=== PATIENT | male | born 1940 | race Caucasian/White ===

== ENCOUNTER → 2018-06-26 16:24 | Outpatient (CLI) | payer MEDICARE, SELFPAY ==
[2018-02-13 10:34] VITALS: BMI 28.8
--- NOTE | 2018-06-26 16:29 | RAD_ITS ---
STUDY: X-RAY - LEFT KNEE REASON FOR EXAM: Male, 77 years old. Pain. TECHNIQUE: 4 view(s) of the knee. COMPARISON: None. FINDINGS: Normal visualized distal femur. Normal visualized proximal tibia and fibula. Normal proximal tibiofibular articulation. There is no acute fracture, dislocation or destructive osseous pathology. There is mild degenerative arthrosis of the medial femorotibial compartment. There is mild degenerative arthrosis of the lateral femorotibial compartment. There is mild degenerative arthrosis of the patellofemoral articulation. There is no demonstrated joint effusion. There are multiple surgical clips in the soft tissue over the medial calf thought to be secondary to vascular surgery. 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 Electronically Signed: Moi Frank DO at 22:30 EST Tel [phone], Service support ,
== END ==
PROVIDERS: Family Provider Family Medicine; PCP Family Medicine; Referring Provider Family Medicine; Visit Provider Family Medicine
DX: M25.562 Pain in left knee (principal)
CPT/HCPCS: 73564

== ENCOUNTER → 2018-09-20 | Outpatient (CLI) | payer MEDICARE, SELFPAY ==
[2018-02-13 10:34] VITALS: BMI 28.8
[2018-09-20 14:33] LABS: ALB/GLOB Ratio 1.1 RATIO (0.9-2.4); AST(SGOT) 51 U/L (15-37); Alanine Aminotransfer ALT/SGPT 39 U/L (16-61); Albumin, Serum 3.4 g/dL (3.2-5.0); Alkaline Phosphatase 81 U/L (45-117); Anion Gap 10 (5-15); BUN 16 mg/dL (7-18); BUN/Creat Ratio 15.5 RATIO (10-20); Calcium,Total 8.5 mg/dL (8.5-10.1); Chloride 102 mmol/L (98-107); Creatinine, Serum 1.03 mg/dL (0.70-1.30); EST Glomerular Filtration Rate 74 mL/min (>60); Est Glom Filt Rate - Afr Amer 90 mL/min (>60); Globulin 3.1 g/dL (2.2-4.2); Glucose 111 mg/dL (74-106); Potassium 4.2 mmol/L (3.5-5.1); Protein, Total 6.5 g/dL (6.4-8.2); Sodium Level 135 mmol/L (136-145)
[2018-09-20 14:42] LABS: Absolute Lymphocyte Count 0.53 X10^3/ul (0.83-4.51); Absolute Neutrophil Count 3.4 X10^3/uL (2.0-7.7); Basophil# 0.01 X10^3/uL; Basophil% 0.2 % (0-1); Eosinophil# 0.01 X10^3/uL; Eosinophils% 0.2 % (0-5); Hematocrit 42.8 % (40-54); Hemoglobin 14.9 g/dl (13.0-16.5); Lymphocyte # 0.53 X10^3/ul (4.0); Lymphocyte % 11.1 % (19-41); Mean Corp Hgb Conc 34.8 g/gl (32-36); Mean Corpuscular Hgb 31.4 pg (27.0-32.0); Mean Corpuscular Volume 90.1 fL (80-94); Mean Platelet Vol. 10.3 fl (6.2-12.0); Monocyte# 0.83 X10^3/uL; Monocyte% 17.4 % (0-10); Neutrophil # 3.39 X10^3/uL (2.7-7.7); Neutrophil % 70.9 % (47-70); Platelet Count 125 K/mm3 (150-450); RBC Distribution Width CV 13.7 % (11.6-14.6); RBC Distribution Width SD 44.6 fl (35.1-43.9); Red Blood Count 4.75 M/mm3 (4.6-6.2); White Blood Count 4.8 K/mm3 (4.4-11.0)
[2018-09-20 14:44] LABS: Differential Indicated SCAN CRITERIA MET; POSITIVE COUNT NO; POSITIVE DIFFERENTIAL YES; POSITIVE MORPHOLOGY NO
[2018-09-20 14:48] LABS: Platelet Estimate SLT DEC (ADEQ)
[2018-09-20 14:49] LABS: Red Cell Morphology NORM C+C NORMAL (NORM C&C)
== END | disposition home or self-care (01) ==
PROVIDERS: Family Provider Family Medicine; PCP Family Medicine; Referring Provider Family Medicine; Visit Provider Family Medicine
DX: M62.81 Muscle weakness (generalized) (principal); R68.83 Chills (without fever)
CPT/HCPCS: 36415; 80053; 85025

== ENCOUNTER → 2018-09-22 | Outpatient (CLI) | payer MEDICARE, SELFPAY ==
[2018-02-13 10:34] VITALS: BMI 28.8
--- NOTE | 2018-09-22 12:36 | RAD_ITS ---
STUDY: X-RAY CHEST REASON FOR EXAM: Male, 78 years old. Muscle weakness, fever, congestion TECHNIQUE: Frontal and lateral views COMPARISON: September 18, 2013 FINDINGS: Stable sternotomy wires. The lungs are clear and expanded. There is no demonstrated pleural abnormality. Normal size heart. Normal mediastinum and lisa. Normal visualized pulmonary arteries. Normal visualized aortic arch and descending thoracic aorta. Degenerative changes of the thoracic spine. Normal visualized ribs, clavicles, and shoulders. There is no demonstrated abnormality of the visualized soft tissue structures of the upper abdomen. RAD/Chest PA and Lateral IMPRESSION: No acute pulmonary pathology of the chest. Electronically Signed: Wilfrido Payne DO at 22:43 EDT Tel [phone], Service support ,
[2018-09-22 13:54] LABS: Color, Urine DARK YELLOW (Yellow); Glucose, Dipstick Normal (Normal); Ketone-Dipstick 50 mg/dl (Negative); Leukocyte Esterase-Dipstick 25 /ul (Negative); Nitrite-Dipstick Positive (Negative); Occult Blood-Urine 10 /ul (Negative); Protein-Dipstick 15 mg/dl (Negative); Specific Gravity, Urine 1.015 (1.002-1.030); Urine Bilirubin Dipstick 1 mg/dL (Negative); Urine Clarity Clear (Clear); Urine Urobilinogen 8 mg/dl (Normal); Urine pH 6.5 (5.0 - 8.0)
[2018-09-22 13:58] LABS: Absolute Lymphocyte Count 0.78 X10^3/ul (0.83-4.51); Absolute Neutrophil Count 4.3 X10^3/uL (2.0-7.7); Basophil# 0.02 X10^3/uL; Basophil% 0.3 % (0-1); Eosinophil# 0.04 X10^3/uL; Eosinophils% 0.6 % (0-5); Hematocrit 38.4 % (40-54); Hemoglobin 13.6 g/dl (13.0-16.5); Lymphocyte # 0.78 X10^3/ul (4.0); Lymphocyte % 12.5 % (19-41); Mean Corp Hgb Conc 35.4 g/gl (32-36); Mean Corpuscular Hgb 31.9 pg (27.0-32.0); Mean Corpuscular Volume 90.1 fL (80-94); Mean Platelet Vol. 10.2 fl (6.2-12.0); Monocyte# 1.09 X10^3/uL; Monocyte% 17.5 % (0-10); Neutrophil % 68.9 % (47-70); Platelet Count 124 K/mm3 (150-450); RBC Distribution Width CV 13.7 % (11.6-14.6); RBC Distribution Width SD 44.9 fl (35.1-43.9); Red Blood Count 4.26 M/mm3 (4.6-6.2); White Blood Count 6.2 K/mm3 (4.4-11.0)
[2018-09-22 14:05] LABS: POSITIVE COUNT NO; POSITIVE DIFFERENTIAL NO; POSITIVE MORPHOLOGY NO
== END | disposition home or self-care (01) ==
LOC: MTLAB 12:32
PROVIDERS: Family Provider Family Medicine; PCP Family Medicine; Referring Provider Family Medicine; Visit Provider Family Medicine
DX: M62.81 Muscle weakness (generalized) (principal)
CPT/HCPCS: 36415; 71046; 81002; 85025

== ENCOUNTER → 2018-10-12 | Outpatient (CLI) | payer MEDICARE, SELFPAY ==
[2018-02-13 10:34] VITALS: BMI 28.8
--- NOTE | 2018-10-12 14:53 | RAD_ITS ---
STUDY: X-RAY - LUMBAR SPINE REASON FOR EXAM: Male, 78 years old. Back pain. TECHNIQUE: 5 view(s) of the lumbar spine were obtained. COMPARISON: None FINDINGS: There is generalized osteopenia. Normal lumbar lordosis. There is no substantial scoliosis. There is a normal alignment of the vertebrae. Normal vertebral bodies and endplates. There is diffuse intervertebral disc space narrowing with osteophyte formation most marked at L4-5 and L5-S1. There is diffuse facet sclerosis. There are cholecystectomy clips, phleboliths and vascular calcifications. RAD/L/S Spine Min 4 Views IMPRESSION: Osteopenia with moderate lumbar spondylosis, most marked in the lower lumbar spine. Electronically Signed: Michele Moy MD at 10:49 EDT , Service support ,
[2018-10-12 17:57] LABS: Absolute Lymphocyte Count 1.51 X10^3/ul (0.83-4.51); Absolute Neutrophil Count 2.4 X10^3/uL (2.0-7.7); Basophil# 0.02 X10^3/uL; Basophil% 0.4 % (0-1); Eosinophil# 0.08 X10^3/uL; Eosinophils% 1.7 % (0-5); Hematocrit 41.2 % (40-54); Lymphocyte # 1.51 X10^3/ul (4.0); Mean Corpuscular Hgb 31.5 pg (27.0-32.0); Mean Corpuscular Volume 92.8 fL (80-94); Mean Platelet Vol. 10.5 fl (6.2-12.0); Monocyte# 0.67 X10^3/uL; Monocyte% 14.2 % (0-10); Neutrophil # 2.43 X10^3/uL (2.7-7.7); Neutrophil % 51.5 % (47-70); POSITIVE COUNT NO; POSITIVE DIFFERENTIAL NO; POSITIVE MORPHOLOGY NO; Platelet Count 155 K/mm3 (150-450); RBC Distribution Width CV 13.7 % (11.6-14.6); RBC Distribution Width SD 46.4 fl (35.1-43.9); Red Blood Count 4.44 M/mm3 (4.6-6.2); White Blood Count 4.7 K/mm3 (4.4-11.0)
[2018-10-12 18:05] LABS: Erythrocyte Sedimentation Rate 2 mm/hr (0-20)
[2018-10-12 18:24] LABS: Vitamin B12 365 pg/mL (211-911)
[2018-10-12 18:39] LABS: AST(SGOT) 14 U/L (15-37); Alanine Aminotransfer ALT/SGPT 21 U/L (16-61); Albumin, Serum 3.3 g/dL (3.2-5.0); Alkaline Phosphatase 71 U/L (45-117); Anion Gap 8 (5-15); BUN 12 mg/dL (7-18); BUN/Creat Ratio 13.6 RATIO (10-20); CPK Total, Creatine Kinase 39 U/L (39-308); CRP < 2.90 mg/L (0.0-3.0); Calcium,Total 8.3 mg/dL (8.5-10.1); Chloride 110 mmol/L (98-107); Creatinine, Serum 0.88 mg/dL (0.70-1.30); EST Glomerular Filtration Rate 89 mL/min (>60); Est Glom Filt Rate - Afr Amer 108 mL/min (>60); Globulin 3.2 g/dL (2.2-4.2); Glucose 92 mg/dL (74-106); Magnesium 2.1 mg/dL (1.6-2.6); Potassium 4.1 mmol/L (3.5-5.1); Protein, Total 6.5 g/dL (6.4-8.2); Rheumatoid Factor < 10.0 IU/mL (<15); Sodium Level 143 mmol/L (136-145); Thyroid Stim Hormone (TSH) 1.31 uIU/mL (0.358-3.74)
[2018-10-18 16:28] LABS: ANTINUCLEAR ANTIBODIES DIRECT Negative (Negative)
== END | disposition home or self-care (01) ==
LOC: MTLAB 14:51
PROVIDERS: Family Provider Family Medicine; PCP Family Medicine; Referring Provider Family Medicine; Visit Provider Family Medicine
DX: R25.9 Unspecified abnormal involuntary movements (principal); M62.81 Muscle weakness (generalized); M54.5 Low back pain
CPT/HCPCS: 36415; 72110; 80053; 82550; 82607; 83735; 84443; 85025; 85652; 86038; 86140; 86431

== ENCOUNTER 2018-10-15 10:18 | Emergency (ER) | payer MEDICARE, SELFPAY ==
[2018-10-15 10:20] VITALS: BP 131/64; PULSE 64; RESP 16; TEMP 36.3; O2SAT 99; BMI 27.6
--- NOTE | 2018-10-15 10:56 | EKG12_ITS ---
Test Reason : GENERAL ILLNESS Blood Pressure : / mmHG Vent. Rate : 065 BPM Atrial Rate : 065 BPM P-R Int : 174 ms QRS Dur : 096 ms QT Int : 434 ms P-R-T Axes : 042 003 048 degrees QTc Int : 451 ms Sinus rhythm with frequent Premature ventricular complexes and Premature atrial complexes Otherwise normal ECG Confirmed by KEVIN NAVARRO, ADONIS ([id number]), editorial specialist ZOILA LEACH ([id number]) on 10/18/2018 9:06:12 AM Referred By: Mike Wilhelm Confirmed By:ADONIS BROWN MD
--- NOTE | 2018-10-15 11:03 | ED.DCSUM_ITS ---
History of Present Illness Chief Complaint: General Illness Informant: Patient, Family Onset: Weeks - 3 Context: Gradual Onset Timing: Continuous Quality: weak Location: BLE Current Severity: Moderate Maximum Severity: Moderate Worsened by: unk Relieved by: treating a UTI 2 or so wks ago Associated Symptoms: pain low back Narrative: Patient gives a relatively confusing history, such as my knee joints are weak but from what I was able to gather, it sounds like he feels weak from the waist down without numbness. He does not feel weak in his arms. He denies any abdominal pain but told me and nursing that he is weak up to his abdomen and has been having some low back discomfort. Symptoms started 3 weeks ago, the weakness started first. He saw his PCP, and working him up, he had back x-rays that showed some arthritis, some blood work that showed unknown results, and urinalysis that showed infection. The patient at the time had dark yellow urine but no blood, frequency, dysuria, urgency. He states that the antibiotic and his weakness was better and the dark yellow urine resolved.. However, his weakness started getting worse less than a week ago. The dark urine has not recurred. Back pain persists and is no worse, he states it is a little worse on the right it is across his low back, not worse with moving. Having normal bowel movements. No saddle anesthesia or numbness elsewhere, no bowel or bladder dysfunction. He is not anticoagulated, but is on aspirin and Plavix. - Past Medical History (1) Atherosclerosis of coronary artery of [place] heart without angina pectoris Status: Chronic (2) Diabetes mellitus Status: Chronic (3) Hyperlipidemia Status: Chronic (4) Hypertension Status: Chronic (5) Postsurgical aortocoronary bypass status Status: Chronic Comment: CABG x4- TAVAREZ to LAD, reverse SVG to CX, SVG to 2 branches on right Past Medical History - Allergies and Home Meds Allergies/Adverse Reactions: Allergies erythromycin base Allergy (Mild, Verified 10/15/18 10:19) stomach problems Primary Care Physician: Mike Wilhelm MD [Primary Care Provider] - Surgical History: coronary bypass surgery Lives: Spouse/ Significant Other Smoking Status: Never smoker Review of Systems General: Reports: Weight loss - over past 1-2 yrs. Denies: Chills, Fever, Sweats Eyes: Denies: Visual changes - bilaterally, Diplopia ENT: Denies: Rhinorrhea, Sore throat Cardiovascular: Reports: - - 2+/4 distal DP and rad pulses. Denies: Chest pain, Palpitations Respiratory: Denies: Dyspnea, Cough, Dyspnea on exertion Gastrointestinal: Denies: Abdominal pain, Nausea, Vomiting, Diarrhea, Melena, Hematochezia Genitourinary: Denies: Dysuria, Hematuria, Frequency Musculoskeletal: Reports: Back pain. Denies: Swelling, Extremity Pain Skin: Denies: Rash, Wounds Neurological: Denies: Headache, Weakness, Numbness Physical Exam Vital Signs/Narrative: Vital Signs Temp Pulse Resp BP Pulse Ox 10/15/18 10:20 97.3 F L 64 16 131/64 H 99 Inital Vital Signs reviewed: Yes General: Well nourished, Well developed, No Acute Distress Head: Normocephalic, Atraumatic Eyes: Perrl, EOMI ENT: Moist mucous membranes, No rhinorrhea Neck: Supple, Nontender Cardiovascular: Regular rate, Regular rhythm, No murmurs Respiratory: No distress, CTA bilaterally, Chest nontender Abdomen: Soft, Nontender, Nondistended, Normal bowel sounds Back: Nontender, Normal Inspection, - - no rashes. Negative for: CVA tenderness, Spinal tenderness Extremities: Nontender, No edema. Negative for: Calf Tenderness Skin: Normal color, No rash, No Trauma Neurological: Alert, Oriented x3, Cranial nerves II-XII grossly intact, Normal Strength - 5/5 throughout all 4 extremity prox and distal muscle groups., Normal Sensation, Normal DTR, - - has trouble sitting up in bed due to possible trunkal weakness, not limited by pain. no clonus. down going toes bilat. Psychological: Normal affect, Normal Mood Diagnostic/Tx/Re-eval Impressions Chest X-Ray 10/15/18 11:40 IMPRESSION: Stable, nonacute x-ray examination of the chest. Electronically Signed: Alo Medrano MD at 12:02 EDT , Service support , 10/15/18 11:40 Chest PA and Lateral [RAD] Stat Laboratory Results 10/15/18 10/15/18 10/15/18 11:15 11:35 11:35 WBC 6.9 RBC 4.65 Hgb 14.9 Hct 42.6 MCV 91.6 MCH 32.0 MCHC 35.0 RDW 13.4 RDW Differential 44.4 H Plt Count 148 L MPV 9.9 Immature Gran % (Auto) 0.100 Neut % (Auto) 56.8 Lymph % (Auto) 28.8 [place] % (Auto) 12.7 H Eos % (Auto) 1.3 Baso % (Auto) 0.3 Absolute Neuts (auto) 3.9 Absolute Lymphs (auto) 1.97 Total Counted Not Reportable Sodium 137 Potassium 4.2 Chloride 105 Carbon Dioxide 25.0 Anion Gap 7 BUN 12 Creatinine 0.93 Estim Creat Clear Calc 76.11 Est GFR (MDRD) Af Amer 101 Est GFR (MDRD) Non-Af 83 BUN/Creatinine Ratio 12.9 Glucose 107 H Calcium 8.7 Total Bilirubin 2.10 H AST 15 ALT 17 Alkaline Phosphatase 69 Troponin I < 0.015 Total Protein 6.4 Albumin 3.5 Globulin 2.9 Albumin/Globulin Ratio 1.2 Urine Color Yellow Urine Clarity Clear Urine pH 6.0 Ur Specific Mayo 1.015 Urine Protein 30 H Urine Glucose (UA) Normal Urine Ketones 5 H Urine Occult Blood 10 H Urine Nitrite Negative Urine Bilirubin Negative Urine Urobilinogen Normal Ur Leukocyte Esterase 25 H Urine RBC 0 SEEN Urine WBC 0-5 SEEN Ur Squamous Epith Cells 0-5 SEEN Urine Bacteria 0 SEEN Urine Mucus 0 SEEN - Rhythm Strip Rhythm Strip: Sinus Rhythm Rate: 65 Ectopy: PVC(s) - EKG Initial EKG Interpretation: Sinus Rhythm, No Acute Injury Pattern, - - Frequent ventricular ectopy with compensatory pauses. Otherwise, normal. - Medical Decision Making Labs are all unremarkable and similar to his prior labs last week. Chest x-ray unremarkable, urinalysis shows no recurrent infection. On further discussion with the patient, he states this low back pain is chronic. agrees. As he is lying in bed he is uncomfortable and says that the more he lies the worse it gets typically, which is why he is uncomfortable right now. I got him up out of bed, he walked around the bed without any difficulty and said that feels better. He also thinks the IV fluids he was given here in the ER helped him feel better. At this time I do not feel like on exam he has any neurologic weakness. His reflexes are normal, this is not Gullian Henry? syndrome. He did note that while he was in the emergency department he had one bout of loose diarrhea. It is possible he is a viral illness which is making him feel malaised and noticing it more in his legs. I offered admission but, he declines. I do not think he requires admission at this time. I think it is reasonable that he follow-up with his PCP if he still has symptoms after the holiday weekend. They are comfortable with this overall plan. ED Disposition - Plan for ED Patient: Disposition: Home or Assisted Living Diagnosis: Generalized weakness Instructions: ED Weakness [facility] Referrals: Mike Wilhelm MD [Primary Care Provider] - 3-5 Days if not improving
[2018-10-15 11:08] VITALS: BP 131/90; BP 137/87; BP 142/67; PULSE 56; PULSE 59; PULSE 61
[2018-10-15 11:32] LABS: Bacteria 0 SEEN /hpf (None Seen); Mucous, Urine 0 SEEN /hpf (<or=2+); Red Blood Cells-Urine 0 SEEN /hpf (0-5)
[2018-10-15 11:40] LABS: Color, Urine Yellow (Yellow); Glucose, Dipstick Normal (Normal); Ketone-Dipstick 5 mg/dl (Negative); Leukocyte Esterase-Dipstick 25 /ul (Negative); Nitrite-Dipstick Negative (Negative); Occult Blood-Urine 10 /ul (Negative); Protein-Dipstick 30 mg/dl (Negative); Specific Gravity, Urine 1.015 (1.002-1.030); Urine Bilirubin Dipstick Negative (Negative); Urine Clarity Clear (Clear); Urine Urobilinogen Normal (Normal)
--- NOTE | 2018-10-15 11:40 | RAD_ITS ---
STUDY: X-RAY CHEST REASON FOR EXAM: Male, 78 years old. Bilateral leg pain TECHNIQUE: PA and lateral views of the chest. COMPARISON: 09/22/2018 FINDINGS: EKG leads project over the chest. CABG The lungs are clear and expanded. There is no demonstrated pleural abnormality. Normal size heart. Normal mediastinum and lisa. Normal visualized pulmonary arteries. Normal visualized aortic arch and descending thoracic aorta. There are diffuse degenerative changes of the visualized thoracic spine. Normal visualized ribs, clavicles, and shoulders. There is no demonstrated abnormality of the visualized soft tissue structures of the upper abdomen. RAD/Chest PA and Lateral IMPRESSION: Stable, nonacute x-ray examination of the chest. Electronically Signed: Alo Medrano MD at 12:02 EDT , Service support ,
[2018-10-15 11:42] LABS: Squamous Epithelial Cells - UA 0-5 SEEN /hpf (0-5); White Blood Cells 0-5 SEEN /hpf (0-5)
[2018-10-15 11:59] LABS: ALB/GLOB Ratio 1.2 RATIO (0.9-2.4); AST(SGOT) 15 U/L (15-37); Absolute Lymphocyte Count 1.97 X10^3/ul (0.83-4.51); Absolute Neutrophil Count 3.9 X10^3/uL (2.0-7.7); Alanine Aminotransfer ALT/SGPT 17 U/L (16-61); Albumin, Serum 3.5 g/dL (3.2-5.0); Alkaline Phosphatase 69 U/L (45-117); Anion Gap 7 (5-15); BUN 12 mg/dL (7-18); BUN/Creat Ratio 12.9 RATIO (10-20); Basophil# 0.02 X10^3/uL; Basophil% 0.3 % (0-1); Calcium,Total 8.7 mg/dL (8.5-10.1); Chloride 105 mmol/L (98-107); Creatinine, Serum 0.93 mg/dL (0.70-1.30); EST Glomerular Filtration Rate 83 mL/min (>60); Eosinophil# 0.09 X10^3/uL; Eosinophils% 1.3 % (0-5); Est Glom Filt Rate - Afr Amer 101 mL/min (>60); Estimated Creatinine Clearance 76.11 ml/min; Globulin 2.9 g/dL (2.2-4.2); Glucose 107 mg/dL (74-106); Hematocrit 42.6 % (40-54); Hemoglobin 14.9 g/dl (13.0-16.5); Lymphocyte # 1.97 X10^3/ul (4.0); Lymphocyte % 28.8 % (19-41); Mean Corpuscular Volume 91.6 fL (80-94); Mean Platelet Vol. 9.9 fl (6.2-12.0); Monocyte# 0.87 X10^3/uL; Monocyte% 12.7 % (0-10); Neutrophil # 3.89 X10^3/uL (2.7-7.7); Neutrophil % 56.8 % (47-70); POSITIVE COUNT NO; POSITIVE DIFFERENTIAL NO; POSITIVE MORPHOLOGY NO; Platelet Count 148 K/mm3 (150-450); Potassium 4.2 mmol/L (3.5-5.1); Protein, Total 6.4 g/dL (6.4-8.2); RBC Distribution Width CV 13.4 % (11.6-14.6); RBC Distribution Width SD 44.4 fl (35.1-43.9); Red Blood Count 4.65 M/mm3 (4.6-6.2); Sodium Level 137 mmol/L (136-145); White Blood Count 6.9 K/mm3 (4.4-11.0)
[2018-10-15 12:23] VITALS: BP 152/98; PULSE 69; RESP 16; O2SAT 97
[2018-10-15 13:18] VITALS: BP 131/67; PULSE 62; RESP 15; O2SAT 97
== END 2018-10-15 13:19 | disposition home or self-care (01) ==
PROVIDERS: Emergency Provider Emergency Medicine; Family Provider Family Medicine; PCP Family Medicine
DX: R53.1 Weakness (principal); I25.10 Atherosclerotic heart disease of native coronary artery without angina pectoris; E11.9 Type 2 diabetes mellitus without complications; I10 Essential (primary) hypertension; Z95.1 Presence of aortocoronary bypass graft; Z79.02 Long term (current) use of antithrombotics/antiplatelets; Z79.82 Long term (current) use of aspirin; Z79.899 Other long term (current) drug therapy
CPT/HCPCS: 36415; 71046; 80053; 81001; 84484; 85025; 93005; 96360; 96361; 99285; J7030; J7040

== ENCOUNTER 2018-10-16 14:39 | Emergency (ER) | payer MEDICARE, SELFPAY ==
[2018-10-15 10:20] VITALS: BMI 27.6
[2018-10-16 14:40] VITALS: BP 129/68; PULSE 72; RESP 16; TEMP 36.9; O2SAT 99; BMI 27.6
--- NOTE | 2018-10-16 15:13 | EKG12_ITS ---
Test Reason : WEAKNESS Blood Pressure : / mmHG Vent. Rate : 068 BPM Atrial Rate : 068 BPM P-R Int : 172 ms QRS Dur : 090 ms QT Int : 428 ms P-R-T Axes : 026 007 057 degrees QTc Int : 455 ms Sinus rhythm with occasional Premature ventricular complexes Low voltage QRS (Limb Leads) Confirmed by KEVIN NAVARRO, ADONIS ([id number]), commissioning editor ZOILA LEACH ([id number]) on 10/18/2018 10:36:06 AM Referred By: YESSICA Confirmed By:ADONIS BROWN MD
--- NOTE | 2018-10-16 15:13 | CT_ITS ---
STUDY: CT BRAIN WITHOUT CONTRAST REASON FOR EXAM: Male, 78 years old. Weakness. Confusion. RADIATION DOSAGE (If Supplied By Facility): CTDIvol = ( 44.99 ) mGy, DLP = ( 812.98 ) mGycm TECHNIQUE: Transaxial CT imaging of the brain was performed without administration of intravenous contrast material. Individualized dose optimization techniques were used for this CT. COMPARISON: None. FINDINGS: There is no acute bleed or infarct. There are mild chronic ischemic changes. The ventricles are normal in configuration. There is no hydrocephalus. The visualized paranasal sinuses are clear. The mastoid air cells are well aerated. There is no skull fracture. CT/Brain/Head without Contrast IMPRESSION: No acute intracranial abnormality. Mild chronic ischemic changes. Electronically Signed: Luis Whitaker, at 16:08 EDT Tel , Service support ,
--- NOTE | 2018-10-16 15:15 | ED.VISSUMM ---
- ER Visit Summary Date of Service: 10/16/18 Chief Complaint: Weakness History of Present Illness: The patient is a 78 M states is been weak and just not feeling well for the last 4 weeks. He was diagnosed with a UTI placed on antibiotics and was feeling better but now feels poorly again. He seen his primary care physician and was treated in the ER yesterday work-up at this time are basically unremarkable. This included CBC, chemistry, troponin chest x-ray and UA's. He is also had x-rays of his lumbar spine. Physical Examination: Well-appearing older male. at bedside. Vital signs are stable and afebrile. Pulse ox 9 9% on room air no hypoxia. HEENT exam unremarkable. Neck nontender. No lymphadenopathy. Lungs clear to auscultation bilaterally. Heart regular rhythm no murmur. Abdomen is soft and nontender. Normal bowel sounds no peritoneal signs. Patient is moving all 4 extremities. Neurovascular intact. Lying in bed he has normal business applications analyst strength 5 out of 5 bilaterally. He has normal dorsi and plantar flexion can lift either leg off the bed. Normal sensation of lower extremities. Back nontender. Neurologically is awake and alert with no focal motor deficits. He cannot remember the month but he knows the year and president. He is acting appropriately. He has normal speech. No facial droop. He is following commands. Test Results: CBC normal white count of 7. Hemoglobin 14. Chemistries normal. Normal creatinine and gap. EKG sinus rhythm rate of [address] of his brain no acute abnormality. Emergency Department Course and Treatment: I reviewed the patient's recent work-ups are basically unremarkable. I am can add a CT of his brain today. Repeat exam patient is doing well. He was able to get up and ambulate to the bathroom. Treatment Plan: Follow-up with his primary care physician Disposition: Discharge Impression: Generalized weakness of uncertain etiology This note was generated with [employer] dictation software. It may contain incorrect words, spelling, and punctuation that were not noted in review of the chart prior to signing ED Disposition - Plan for ED Patient: Referrals: Mike Wilhelm MD [Primary Care Provider] -
--- NOTE | 2018-10-16 15:18 | ED.DCSUM_ITS ---
- ER Visit Summary Date of Service: 10/16/18 Chief Complaint: Weakness History of Present Illness: The patient is a 78 M states is been weak and just not feeling well for the last 4 weeks. He was diagnosed with a UTI placed on antibiotics and was feeling better but now feels poorly again. He seen his [facility] physician and was treated in the ER yesterday work-up at this time are basically unremarkable. This included CBC, chemistry, troponin chest x-ray and UA's. He is also had x-rays of his lumbar spine. Physical Examination: Well-appearing older male. at bedside. Vital signs are stable and afebrile. Pulse ox 9 9% on room air no hypoxia. HEENT exam unremarkable. Neck nontender. No lymphadenopathy. Lungs clear to auscultation bilaterally. Heart regular rhythm no murmur. Abdomen is soft and nontender. Normal bowel sounds no peritoneal signs. Patient is moving all 4 extremities. Neurovascular intact. Lying in bed he has normal assembly leader strength 5 out of 5 bilaterally. He has normal dorsi and plantar flexion can lift either leg off the bed. Normal sensation of lower extremities. Back nontender. Neurologically is awake and alert with no focal motor deficits. He cannot remember the month but he knows the year and president. He is acting appropr iately. He has normal speech. No facial droop. He is following commands. Test Results: CBC normal white count of 7. Hemoglobin 14. Chemistries normal. Normal creatinine and gap. EKG sinus rhythm rate of [address] of his brain no acute abnormality. Emergency Department Course and Treatment: I reviewed the patient's recent work- ups are basically unremarkable. I am can add a CT of his brain today. Repeat exam patient is doing well. He was able to get up and ambulate to the bathroom. Treatment Plan: Follow-up with his primary care physician Disposition: Discharge Impression: Generalized weakness of uncertain etiology This note was generated with [employer] dictation software. It may contain incorrect words, spelling, and punctuation that were not noted in review of the chart prior to signing ED Disposition - Plan for ED Patient: Referrals: Mike Wilhelm MD [Primary Care Provider] -
[2018-10-16 15:41] LABS: Absolute Lymphocyte Count 1.44 X10^3/ul (0.83-4.51); Absolute Neutrophil Count 4.6 X10^3/uL (2.0-7.7); Basophil# 0.01 X10^3/uL; Basophil% 0.1 % (0-1); Eosinophil# 0.06 X10^3/uL; Eosinophils% 0.9 % (0-5); Hematocrit 41.3 % (40-54); Hemoglobin 14.4 g/dl (13.0-16.5); Lymphocyte # 1.44 X10^3/ul (4.0); Lymphocyte % 20.5 % (19-41); Mean Corp Hgb Conc 34.9 g/gl (32-36); Mean Corpuscular Hgb 31.9 pg (27.0-32.0); Mean Corpuscular Volume 91.4 fL (80-94); Mean Platelet Vol. 9.9 fl (6.2-12.0); Monocyte# 0.92 X10^3/uL; Monocyte% 13.1 % (0-10); Neutrophil # 4.57 X10^3/uL (2.7-7.7); Neutrophil % 65.3 % (47-70); Platelet Count 154 K/mm3 (150-450); RBC Distribution Width CV 13.6 % (11.6-14.6); RBC Distribution Width SD 44.6 fl (35.1-43.9); Red Blood Count 4.52 M/mm3 (4.6-6.2)
[2018-10-16 15:42] LABS: POSITIVE COUNT NO; POSITIVE DIFFERENTIAL NO; POSITIVE MORPHOLOGY NO
[2018-10-16 15:57] LABS: Anion Gap 8 (5-15); BUN 11 mg/dL (7-18); BUN/Creat Ratio 13.4 RATIO (10-20); Calcium,Total 8.7 mg/dL (8.5-10.1); Chloride 103 mmol/L (98-107); Creatinine, Serum 0.82 mg/dL (0.70-1.30); EST Glomerular Filtration Rate 97 mL/min (>60); Est Glom Filt Rate - Afr Amer 117 mL/min (>60); Estimated Creatinine Clearance 86.32 ml/min; Glucose 123 mg/dL (74-106); Potassium 3.6 mmol/L (3.5-5.1); Sodium Level 135 mmol/L (136-145)
[2018-10-16 16:33] VITALS: BP 129/70; PULSE 80; RESP 15
--- NOTE | 2018-10-16 16:48 | ED.DEP ---
ED Disposition - Plan for ED Patient: Disposition: Home or Assisted Living Instructions: ED Weakness [facility] Referrals: Mike Wilhelm MD [Primary Care Provider] - 3-5 Days Additional Instructions: Follow-up with your doctor.
== END 2018-10-16 17:42 | disposition home or self-care (01) ==
PROVIDERS: Emergency Provider Emergency Medicine; Family Provider Family Medicine; PCP Family Medicine
DX: R53.1 Weakness (principal); Z87.440 Personal history of urinary (tract) infections; I25.10 Atherosclerotic heart disease of native coronary artery without angina pectoris; Z79.82 Long term (current) use of aspirin
CPT/HCPCS: 70450; 80048; 85025; 93005; 99283; A4216

== ENCOUNTER 2018-11-06 15:24 | Observation (INO) | payer MEDICARE, SELFPAY ==
[2018-11-06] VITALS (7 sets, daily range): BP systolic 118–145; BP diastolic 51–74; PULSE 72–90; RESP 14–16; TEMP 36.9–37.2; O2SAT 94–100; BMI 29.0; BMI 28.4
--- NOTE | 2018-11-06 15:37 | EKG12_ITS ---
Test Reason : ADMISSION EKG Blood Pressure : / mmHG Vent. Rate : 068 BPM Atrial Rate : 068 BPM P-R Int : 184 ms QRS Dur : 088 ms QT Int : 404 ms P-R-T Axes : 030 000 036 degrees QTc Int : 429 ms Sinus rhythm with frequent Premature ventricular complexes Otherwise normal ECG When compared with ECG of 06-NOV-2018 16:15, MANUAL COMPARISON REQUIRED, DATA IS UNCONFIRMED Confirmed by GARRETT NAVARRO, ROBINSON ([id number]), metropolitan editor ARGENIS SAMANO ([id number]) on 11/14/2018 7:01:19 AM Referred By: Nancy Cronin Confirmed By:MALIA TUCKER MD
--- NOTE | 2018-11-06 15:37 | CT_ITS ---
STUDY: CT BRAIN WITHOUT CONTRAST REASON FOR EXAM: Male, 78 years old. Weakness, falls RADIATION DOSAGE (If Supplied By Facility): CTDIvol = ( 60.81 ) mGy, DLP = ( 1112.69 ) mGycm TECHNIQUE: Transaxial CT imaging of the brain was performed without administration of intravenous contrast material. Individualized dose optimization techniques were used for this CT. COMPARISON: No relevant priors. FINDINGS: Normal soft tissue structures. Normal calvarium. Normal size ventricles and extra-axial spaces for the patient's age. Normal white matter tracts of the cerebral hemispheres. Normal basal ganglia and thalami. Normal brainstem. Normal cerebellum. There is no intracranial hemorrhage. There are no findings of an acute ischemic infarction. Normal visualized paranasal sinuses. CT/Brain/Head without Contrast IMPRESSION: Normal unenhanced CT scan of the brain. Electronically Signed: Timbo Howe MD at 16:12 EDT Tel , Service support ,
--- NOTE | 2018-11-06 15:39 | ED.VISSUMM ---
- ER Visit Summary Date of Service: 11/06/18 Chief Complaint: Weakness and falls History of Present Illness: The patient is a 78 M who is been feeling weak for the past 2 months. Is progressively getting worse. He is fallen about 15-20 times. He has hit his head and has had his right hip. He has had multiple work-ups here and at [facility] without a definitive diagnosis. He has not had any inpatient stays. His PCP is ordered an MRI of his head. He states that he does not feel dizzy or lightheaded. His right leg just feels weak. His believes that his speech is a little bit slurred as well. He has no history of stroke in the past. He has had a CABG and does have coronary artery disease. Physical Examination: Vital signs are reviewed. HEENT exam reveals no facial droop. His speech is slightly slurred. Heart is regular rate and rhythm. Lungs are clear to auscultation bilaterally. Abdomen is soft and nontender. Extremities have no edema. He has no tenderness of the right hip. His right leg is fairly weak compared to the left. His NIH is 3. 2 for right leg and 1 for his speech. Test Results: Laboratory studies unremarkable except for platelet of 125 and glucose 131. EKG is sinus rhythm with multiple PVCs. X-ray of his hip is normal. CAT scan of the head was read by radiology is normal Emergency Department Course and Treatment: I have a concern with the patient's weakness and is slightly slurred speech that he be having a stroke. He warrants an MRI for further evaluation. I spoke with the hospitalist who will admit him to observation Treatment Plan: [] Disposition: Admit Impression: Right leg weakness, multiple falls This note was generated with [employer] dictation software. It may contain incorrect words, spelling, and punctuation that were not noted in review of the chart prior to signing ED Disposition - Plan for ED Patient: Referrals: Mike Wilhelm MD [Primary Care Provider] -
[2018-11-06 15:54] LABS: Absolute Lymphocyte Count 0.65 X10^3/ul (0.83-4.51); Absolute Neutrophil Count 5.8 X10^3/uL (2.0-7.7); Basophil# 0.01 X10^3/uL; Basophil% 0.1 % (0-1); Eosinophil# 0.09 X10^3/uL; Eosinophils% 1.2 % (0-5); Hematocrit 39.2 % (40-54); Hemoglobin 13.2 g/dl (13.0-16.5); Lymphocyte # 0.65 X10^3/ul (4.0); Mean Corp Hgb Conc 33.7 g/gl (32-36); Mean Corpuscular Hgb 31.7 pg (27.0-32.0); Mean Corpuscular Volume 94.2 fL (80-94); Mean Platelet Vol. 9.7 fl (6.2-12.0); Monocyte# 0.69 X10^3/uL; Monocyte% 9.5 % (0-10); Neutrophil % 80.1 % (47-70); Platelet Count 125 K/mm3 (150-450); RBC Distribution Width CV 14.2 % (11.6-14.6); RBC Distribution Width SD 48.6 fl (35.1-43.9); Red Blood Count 4.16 M/mm3 (4.6-6.2); White Blood Count 7.3 K/mm3 (4.4-11.0)
--- NOTE | 2018-11-06 16:00 | RAD_ITS ---
STUDY: X-RAY - PELVIS AND RIGHT HIP REASON FOR EXAM: Male, 78 years old. Fall, hip pain TECHNIQUE: 3 views of the pelvis and hip. COMPARISON: None. FINDINGS: There is a non-specific bowel gas pattern. Normal visualized soft tissue structures. Normal bilateral iliac wings, sacroiliac joints and visualized sacrum. Normal bilateral superior and inferior pubic rami. Normal pubic symphysis. Normal bilateral ischial tuberosities. Normal visualized femoral head. Normal acetabulum. Normal hip joint. RAD/HIP, UNI W/ Pelvis 2-3 Views IMPRESSION: Normal x-ray examination of the pelvis and hip. Electronically Signed: Timbo Howe MD at 16:42 EDT Tel , Service support ,
[2018-11-06 16:01] LABS: POSITIVE COUNT NO; POSITIVE DIFFERENTIAL NO; POSITIVE MORPHOLOGY NO
[2018-11-06 16:08] LABS: Anion Gap 6 (5-15); BUN 15 mg/dL (7-18); BUN/Creat Ratio 16.5 RATIO (10-20); Calcium,Total 8.4 mg/dL (8.5-10.1); Chloride 105 mmol/L (98-107); Creatinine, Serum 0.91 mg/dL (0.70-1.30); EST Glomerular Filtration Rate 86 mL/min (>60); Est Glom Filt Rate - Afr Amer 104 mL/min (>60); Estimated Creatinine Clearance 75.61 ml/min; Glucose 131 mg/dL (74-106); Sodium Level 139 mmol/L (136-145)
--- NOTE | 2018-11-06 17:28 | HP.PCM_ITS ---
Problem List (1) CVA (cerebral vascular accident) Status: Acute (2) Atrial arrhythmia Status: Chronic (3) Hyperlipidemia Status: Chronic Qualifiers: (4) Diabetes mellitus Status: Chronic (5) Hypertension Status: Chronic Qualifiers: (6) CAD (coronary artery disease) Status: Chronic History of Present Illness Date of Admission: 11/06/18 Chief Complaint: RLE weakness The patient is a 78 year old M with a past medical history of coronary artery disease status post coronary artery bypass x4, history of hypertension, history of hyperlipidemia, history of unspecified atrial dysrhythmia with prior radiofrequency ablation, who presents to the emergency room with complaints of ongoing right lower extremity weakness that is been progressively worsening over the past month. Patient states this all began approximately 1 month ago when he fell getting out of his truck, he became severely weak all over presented to his PCPs office and was found to have a urinary tract infection. He states that his weakness improved following that, however has gradually worsened on the right side since then. Family is also present and notes that he has had increased slurred speech, worsening memory, change of his personality, speech difficulties swallowing, and ongoing increasing frequency of falls. His last fall was 2 days ago. He was using his walker, stepped out of his car. His right knee gave out and he fell to the ground striking his head and hip. X-rays in the emergency room demonstrate no acute abnormalities. CT the brain was negative. The patient also has noted that he has an increased resting tremor in his right arm, Goes away with exertion. some numbness and tingling in his right lower extremity, no headaches, possibly some increased hearing loss, however feels this is chronic, no vision changes including double vision or blurry vision. He has no history of CVA, his father had a history of stroke however. [] Past Medical History Past Medical History (Chronic Problems): Chronic Problems (Last Reviewed 02/13/18 @ 10:37 by Baylee Villa) CAD (coronary artery disease) (Chronic) Atrial arrhythmia (Chronic) History of non-ST elevation myocardial infarction (NSTEMI) (Chronic) Atherosclerosis of coronary artery of [place] heart without angina pectoris (Chronic) Hyperlipidemia (Chronic) Postsurgical aortocoronary bypass status (Chronic ~04/18/00) CABG x4- TAVAREZ to LAD, reverse SVG to CX, SVG to 2 branches on right Diabetes mellitus (Chronic) Hypertension (Chronic) Medical History: Medical History (Last Reviewed 02/13/18 @ 10:37 by Baylee Villa) Sinus bradycardia (Acute) R00.1 Atrial arrhythmia (Acute) I49.8 History of non-ST elevation myocardial infarction (NSTEMI) (Chronic) I25.2 Atherosclerosis of coronary artery of [place] heart without angina pectoris (Chronic) I25.10 Hyperlipidemia (Chronic) E78.5 Diabetes mellitus (Chronic) E11.9 Hypertension (Chronic) I10 History of hiatal hernia Z87.19 History of sleep apnea Z86.69 Sleep apnea G47.30 Allergies erythromycin base Allergy (Mild, Verified 11/06/18 15:25) stomach problems Home Medications: Ambulatory Orders Medication Instructions Recorded Aspirin [Jaconita Aspirin] 81 mg PO DAILY 09/18/13 lisinopril 2.5 mg tablet 2.5 mg PO DAILY #90 tab 01/24/18 carvedilol 6.25 mg tablet 6.25 mg PO BID 02/08/18 saw palmetto fruit 1 cap PO QDAY cap 02/13/18 extract-phytosterol combo 2 160 mg-250 mg capsule isosorbide mononitrate ER 60 mg 60 mg PO DAILY #90 tab 04/03/18 tablet,extended release 24 hr nitroglycerin 0.4 mg sublingual 0.4 mg SUBLINGUAL Q5-15M PRN #100 06/05/18 tablet tab clopidogrel 75 mg tablet 75 mg PO DAILY #90 tab 09/04/18 ranolazine ER 500 mg 500 mg PO BID #180 tab 09/04/18 tablet,extended release,12 hr Surgical History: Surgical History (Last Reviewed 02/13/18 @ 10:37 by Baylee Villa) Postsurgical aortocoronary bypass status (Chronic) Onset Date: ~04/18/00 Z95.1 CABG x4- TAVAREZ to LAD, reverse SVG to CX, SVG to 2 branches on right History of cardiac radiofrequency ablation Onset Date: ~1991 Z98.890 History of cardiac catheterization Z98.890 03/2000, 04/2002,06/2007,08/2013 History of cholecystectomy Z90.49 History of cholecystectomy Z90.49 Surgical History: cholecystectomy, coronary bypass surgery Psychiatric History: No pertinent psych hx Lives: Spouse/ Significant Other Smoking Status: Never smoker Tobacco Use: Non-smoker Alcohol: None Drugs: None - *Family History Maternal Family History: Family History (Last Reviewed 02/13/18 @ 10:37 by Baylee Villa) Father Myocardial infarction Mother CVA (cerebral vascular accident) Brother CAD (coronary artery disease) Sister Colon cancer Sister Cancer Sister Heart disease History Items: Heart Disease Paternal Family History: Family History (Last Reviewed 02/13/18 @ 10:37 by Baylee Villa) Father Myocardial infarction Mother CVA (cerebral vascular accident) Brother CAD (coronary artery disease) Sister Colon cancer Sister Cancer Sister Heart disease History Items: Stroke Review of Systems Constitutional: Denies: Chills, Fever, Weight Change HEENT: Denies: Head Aches, Sinus Congestion, Sinus Drainage Cardiovascular: Denies: Chest Pain, Palpitations Respiratory: Denies: Cough, Shortness of breath at rest, Sputum production Gastrointestinal: Denies: Abdominal Pain, Nausea, Vomiting Genitourinary: Denies: Dysuria Musculoskeletal: Denies: Joint Pain, Joint Tenderness Skin: Denies: Rash, Wounds Neurological: Denies: Numbness, Tingling, Focal weakness Psychiatric: Denies: Anxiety, Depression, Homicidal Ideations, Suicidal Ideation s Hematologic/ Lymphatic: Denies: Easy Bruising, Easy Bleeding VTE Information - Inpt Only VTE Present on Admission: No VTE Mechan Device Prophylaxis: None VTE Pharm Prophylaxis ordered?: Yes Patient Problems: Active and Suspected Problems (Last Reviewed 02/13/18 @ 10:37 by Baylee Villa) CVA (cerebral vascular accident) (Acute) - Physical Exam General: Alert, Oriented x3, Cooperative HEENT: Atraumatic, PERRLA, EOMI, Normocephalic Neck: Supple, No JVD, Negative Carotid Bruits Lungs: Clear to auscultation, Normal air movement Cardiovascular: No murmurs, Irregular Rate Abdomen: Bowel Sounds Present, Soft, Non Tender Extremities: No edema, Capillary Refill Less than 3 Seconds, Edema - 2-3 + pitting laura BLE Skin: No rashes, No breakdown Musculoskeletal: No Tenderness to Palpation of Joints or Extremities Neurological: Cranial nerves II-XII grossly intact, Facial Droop - Right sided, Slurred Speech, - - Masked facies. RUE resting tremor. RLE with severe weakness - cannot lift off the table. Psych/Mental Status: Normal Affect, Appropriate Vital Signs Temp Pulse Resp BP Pulse Ox 98.4 F 90 16 136/70 H 99 11/06/18 15:25 11/06/18 15:25 11/06/18 15:25 11/06/18 15:25 11/06/18 15:25 Oxygen Delivery Method Room Air Weight: 220 lb Body Mass Index (BMI) 29.0 Laboratory Tests Past 24 Hrs 11/06/18 11/06/18 15:40 15:40 WBC 7.3 RBC 4.16 L Hgb 13.2 Hct 39.2 L MCV 94.2 H MCH 31.7 MCHC 33.7 RDW 14.2 RDW Differential 48.6 H Plt Count 125 L MPV 9.7 Immature Gran % (Auto) 0.100 Neut % (Auto) 80.1 H Lymph % (Auto) 9.0 L [place] % (Auto) 9.5 Eos % (Auto) 1.2 Baso % (Auto) 0.1 Absolute Neuts (auto) 5.8 Absolute Lymphs (auto) 0.65 L Total Counted Not Reportable Sodium 139 Potassium 4.0 Chloride 105 Carbon Dioxide 28.0 Anion Gap 6 BUN 15 Creatinine 0.91 Estim Creat Clear Calc 75.61 Est GFR (MDRD) Af Amer 104 Est GFR (MDRD) Non-Af 86 BUN/Creatinine Ratio 16.5 Glucose 131 H Calcium 8.4 L Assessment/Plan All Active Problems (Last Reviewed 02/13/18 @ 10:37 by Baylee Villa) CVA (cerebral vascular accident) (Acute) Sinus bradycardia (Acute) 1. Gradually increasing right lower extremity weakness-also marked by right- sided facial droop, right lower extremity numbness and tingling, slurred speech, swallowing difficulty. The patient also has a resting tremor in the right upper extremity and masked face ease. CT the brain was negative, x-ray of the hip was normal. Frequent falling recently with the last episode 2 days prior. Is been ongoing for about a month. Is concern for underlying stroke, with the other symptoms there is also risk for underlying Parkinson's. Patient will be admitted to the PCU and placed on telemetry. He has a history of an atrial dysrhythmia with a prior radiofrequency ablation. His EKG here shows PACs and PVCs, otherwise sinus rhythm. He does have a family history of stroke. We will obtain MRI of the brain, MRA of the head and neck, neuro consult, echocardiogram, lipid panel, A1c, TSH. -The patient is already on aspirin and Plavix, it is unclear why but he is not on a statin. Will start high-dose Lipitor. -Check urinalysis -PTOTST evals 2. Atrial dysrhythmia-status post RFA-as noted above EKG with PACs PVCs 3. Coronary artery disease with prior CABG x4-patient of Dr. Grace-continue home medications 4. Type 2 diabetes-hold orals and check A1c 5. Hypertension, hyperlipidemia-continue home medications 6. 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 DVT prophylaxis: Lovenox Discharge planning: PT OT eval's This patient was seen by Byron Zuniga PA-C under the supervision of Doctor Mehrdad.
--- NOTE | 2018-11-06 18:05 | ECHOCS_ITS ---
Reason For Study: TIA/CVA Procedure This was a 2D Doppler, Color Flow transthoracic echocardiogram. The study was technically difficult. Contrast injection was performed. Exam performed portable in patient room. Left Ventricle Normal LV size. Mild concentric left ventricular hypertrophy. Left ventricular systolic function is normal. The estimated ejection fraction is 55 %. Post operative septal motion. No regional wall motion abnormalities noted. Right Ventricle Normal RV size. Normal systolic function. Atria The left atrium is mildly enlarged. Normal right atrium. No doppler evidence for ASD. Bubble contrast study negative for right to left interatrial shunt. Mitral Valve There is no mitral annular calcification. Normal mitral valve. Mild (1+) eccentric mitral valve insufficiency. Tricuspid Valve Normal tricuspid valve. Mild tricuspid valve insufficiency. Unable to estimate RV systolic pressure/pulmonary artery pressure due to technically difficult study. Aortic Valve Trisinus/trileaflet aortic valve. Normal aortic valve. Trivial aortic valve insufficiency. Pulmonic Valve The pulmonic valve is not well visualized. Great Vessels Normal sized aortic root. Pericardium/Pleural No pericardial effusion. Medication Performed a rapid injection of agitated mix of 9 cc saline and 1cc air to assess for atrial septal defect. Diluted definity 3ml given slow IV push to enhance endocardial definition. MMode/2D Measurements & Calculations LVIDd: 4.8 cm IVSd: 1.3 cm LA dimension: 5.0 cm LVIDs: 3.5 cm LVPWd: 1.4 cm FS: 28.2 % LAV(MOD-bp): 71.9 ml LA A4 area: 22.2 cm2 RA A4 area: 14.0 cm2 LAV(MOD-bp) Indexed: 32.8 ml/m2 LAV(MOD-sp2): 76.7 ml LAV(MOD-sp4): 66.1 ml Time Measurements MV dec time: 0.22 sec Doppler Measurements & Calculations MV E max violetta: 97.8 cm/sec MV V2 max: 116.5 cm/sec MV P1/2t max violetta: 115.6 cm/sec MV A max violetta: 84.2 cm/sec MV max P.4 mmHg MV P1/2t: 70.1 msec MV E/A: 1.2 MV V2 mean: 60.3 cm/sec MV dec slope: 482.9 cm/sec2 MV mean P.7 mmHg MV V2 VTI: 44.1 cm MVA(P1/2t): 3.1 cm2 MR max violetta: 564.3 cm/sec PA V2 max: 114.6 cm/sec MR max P.4 mmHg MR mean violetta: 464.8 cm/sec MR mean P.8 mmHg MR VTI: 221.6 cm Interpretation Summary The study was technically difficult. Contrast injection was performed. Left ventricular systolic function is normal. The estimated ejection fraction is 55 %. Post operative septal motion. Mild concentric left ventricular hypertrophy. The left atrium is mildly enlarged. Mild (1+) eccentric mitral valve insufficiency. Mild tricuspid valve insufficiency. Trivial aortic valve insufficiency. Unable to estimate RV systolic pressure/pulmonary artery pressure due to technically difficult study. Transmitral diastolic flow velocities suggest diastolic dysfunction (pseudonormal pattern). Bubble contrast study negative for right to left interatrial shunt. Ordering Physician: Nancy Cronin Referring Physician: Nancy Cronin Performed By: Dilip Kwan RCS
--- NOTE | 2018-11-06 18:05 | MRI_ITS ---
STUDY: MRA NECK WITHOUT CONTRAST REASON FOR EXAM: Male, 78 years old. Right leg weakness after fall. TECHNIQUE: Source images were obtained, MIPs were performed. The study was performed unenhanced. COMPARISON: None. FINDINGS: RIGHT CAROTID ARTERIES: Normal right common carotid artery (CCA). Normal right common carotid bulb. Normal origin of the right internal carotid (ICA) artery without a hemodynamically significant stenosis. Normal visualized cervical portion of the right internal carotid artery. Normal origin of the right external carotid artery (ECA). LEFT CAROTID ARTERIES: Normal left common carotid artery (CCA). Normal left common carotid bulb. Normal origin of the left internal carotid (ICA) artery without a hemodynamically significant stenosis. Normal visualized cervical portion of the left internal carotid artery. Normal origin of the left external carotid artery (ECA). VERTEBRAL ARTERIES: Normal antegrade flow within the bilateral vertebral artery without a hemodynamically significant stenosis. MRI/MRA Neck without Contrast IMPRESSION: No evidence of significant steno-occlusive disease or aneurysm. Electronically Signed: Seamus Soria DO at 22:44 EDT , Service support ,
--- NOTE | 2018-11-06 18:05 | MRI_ITS ---
STUDY: MRI BRAIN WITHOUT CONTRAST REASON FOR EXAM: Male, 78 years old. Right leg weakness after fall. TECHNIQUE: Standardized multiplanar fat and water weighted pulse sequences were obtained. COMPARISON: None. FINDINGS: There is mild cerebral atrophy with widening of the extra-axial spaces and ventricular dilatation. There are a limited number of small white matter hyperintensities, distributed throughout the deep white matter tracts of the cerebral hemispheres, consistent with mild chronic white matter ischemic changes. There is no evidence for recent intracranial ischemia or other cause of cytotoxic edema on diffusion weighted imaging (DWI). Normal T2* images of the brain without demonstrated susceptibility artifact. There is no demonstrated hemosiderin stain. Normal bilateral basal ganglia. Normal thalami. There is no extra-axial fluid accumulation. Normal flow voids within the major intracranial circulation suggesting patency by spin echo criteria. Normal sella turcica, pituitary gland, infundibular stalk, optic chiasm and hypothalamus. Normal tectal plate and pineal gland. Normal midbrain, corey and medulla. Normal cerebellum. Normal basal cisterns. Normal bilateral temporal bones. Normal bilateral internal auditory canals. No demonstrated orbital abnormality, within the constraints of a routine brain study. Normal visualized paranasal sinuses. Normal calvarium and skull base. Normal visualized soft tissue structures. Normal visualized upper cervical spine. MRI/Brain without Contrast IMPRESSION: No evidence of acute intracranial bleed, mass or ischemia. Electronically Signed: Seamus Soria DO at 22:37 EDT , Service support ,
--- NOTE | 2018-11-06 18:05 | MRI_ITS ---
STUDY: MRA OF THE HEAD WITHOUT CONTRAST REASON FOR EXAM: Male, 78 years old. Right leg weakness after fall. TECHNIQUE: 3-D [id number] (TOF) imaging was performed with MIPs. The study was performed unenhanced. COMPARISON: None. FINDINGS: Normal bilateral petrous carotid arteries. Normal right cavernous carotid artery with a normal supraclinoid bifurcation. Normal left cavernous carotid artery with a normal supraclinoid bifurcation. Normal right A1 segments of the anterior cerebral artery. Normal left A1 segments of the anterior cerebral artery. Normal intact anterior communicating artery (ACOM). Normal bilateral A2 segments of the anterior cerebral arteries. Normal right M1 and M2 segments of the middle cerebral arteries, with a normal M1 bifurcation. Normal left M1 and M2 segments of the middle cerebral arteries, with a normal M1 bifurcation. There is non-visualization of the right posterior communicating artery (PCOM). There is non-visualization of the left posterior communicating artery (PCOM). Normal bilateral vertebral arteries. Normal basilar artery with a normal basilar bifurcation. The visualized bilateral superior cerebellar (SCA) arteries are normal. Normal bilateral P1, P2 and visualized P3 segments of the posterior cerebral arteries. There is no demonstrated aneurysm of the [place]. There is no major vessel occlusion or hemodynamically significant stenosis. There is no demonstrated abnormality of the visualized brain. MRI/MRA Head ONLY without Contrast IMPRESSION: No evidence of significant steno-occlusive disease or aneurysm. Electronically Signed: Seamus Soria DO at 22:41 EDT , Service support ,
[2018-11-06 18:30] LABS: Hemoglobin A1c 5.5 % (4.2-6.3)
--- NOTE | 2018-11-06 18:30 | EKG12_ITS ---
Test Reason : WEAKNESS Blood Pressure : / mmHG Vent. Rate : 082 BPM Atrial Rate : 082 BPM P-R Int : 174 ms QRS Dur : 092 ms QT Int : 406 ms P-R-T Axes : 038 -05 049 degrees QTc Int : 474 ms Sinus rhythm with frequent premature ventricular contractions Confirmed by KEVIN NAVARRO, ADONIS ([id number]), editor managing newspaper ARGENIS SAMANO ([id number]) on 11/08/2018 12:04:51 PM Referred By: Nancy Cronin Confirmed By:ADONIS BROWN MD
[2018-11-06 18:47] LABS: Magnesium 1.8 mg/dL (1.6-2.6); Thyroid Stim Hormone (TSH) 1.13 uIU/mL (0.358-3.74)
--- NOTE | 2018-11-06 19:01 | CT_ITS ---
STUDY: CT PELVIS WITHOUT CONTRAST REASON FOR EXAM: Male, 78 years old. Pain RADIATION DOSAGE (If Supplied By Facility): CTDIvol = ( 25.38 ) mGy, DLP = ( 1096.56 ) mGycm TECHNIQUE: Transaxial imaging of the pelvis was performed with oral contrast, and without intravenous administration of contrast material. Individualized dose optimization techniques were used for this CT. COMPARISON: None. FINDINGS: Normal urinary bladder. Normal visualized small intestine. Normal visualized colon. There is no pelvic fluid. There is no pelvic mass lesion or lymphadenopathy. Normal visualized pelvic arteries. Normal abdominal wall. Normal osseous structures. CT/Pelvis without IV Contrast IMPRESSION: Normal unenhanced CT of the pelvis. Electronically Signed: Momo Zuleta, at 21:32 EDT Tel , Service support ,
[2018-11-06] MEDS: 0.9% Normal Saline 1,000 ML 999 ML IV (19:05)
[2018-11-06] MEDS: 0.9% NaCl Peripheral Flush Adult/Peds IV (21:40)
[2018-11-06] MEDS: 0.9% Normal Saline 1,000 ML 100 ML IV (22:00)
[2018-11-06] MEDS: Ranolazine 500 MG Tablet PO (22:05)
[2018-11-06] MEDS: Carvedilol 6.25 MG Tablet PO (22:05)
[2018-11-06] MEDS: Mag Hydrox/Al Hydrox/Simeth 30 ML UDC PO (22:05)
[2018-11-06] MEDS: Atorvastatin Calcium 80 MG Tablet PO (22:05)
[2018-11-06 22:33] LABS: Bacteria 0 SEEN /hpf (None Seen); Mucous, Urine 0 SEEN /hpf (<or=2+); Red Blood Cells-Urine 0 SEEN /hpf (0-5); Squamous Epithelial Cells - UA 0 SEEN /hpf (0-5); White Blood Cells 0 SEEN /hpf (0-5)
[2018-11-06 22:59] LABS: Color, Urine Yellow (Yellow); Glucose, Dipstick Normal (Normal); Ketone-Dipstick 5 mg/dl (Negative); Leukocyte Esterase-Dipstick Negative /ul (Negative); Nitrite-Dipstick Negative (Negative); Occult Blood-Urine Negative /ul (Negative); Protein-Dipstick Negative (Negative); Urine Bilirubin Dipstick 1 mg/dL (Negative); Urine Clarity Clear (Clear); Urine Urobilinogen 8 mg/dl (Normal); Urine pH 6.5 (5.0 - 8.0)
[2018-11-06 23:46] LABS: Bedside Glucose 101 mg/dL (70-110)
[2018-11-07] VITALS (11 sets, daily range): BP systolic 127–166; BP diastolic 71–82; PULSE 43–72; RESP 14–17; TEMP 36.6–37.1; O2SAT 98–99; BMI 28.4
[2018-11-07] MEDS: Acetaminophen 325 MG Tablet 650 MG PO (02:27)
--- NOTE | 2018-11-07 05:03 | NURSING ---
Pt unable to raise right leg up as high as left, but he is able to hold it 5 seconds for the height he does raise it. Left facial droop noted.
[2018-11-07 06:17] LABS: Cholesterol 144 mg/dL (200); High Density Lipoprotein 24 mg/dL; Triglycerides 124 mg/dL; Very Low Density Lipoprotein 25 mg/dL (5-40)
[2018-11-07 06:32] LABS: Anion Gap 7 (5-15); BUN 13 mg/dL (7-18); BUN/Creat Ratio 17.7 RATIO (10-20); Calcium,Total 7.7 mg/dL (8.5-10.1); Chloride 108 mmol/L (98-107); Creatinine, Serum 0.73 mg/dL (0.70-1.30); EST Glomerular Filtration Rate 110 mL/min (>60); Est Glom Filt Rate - Afr Amer 133 mL/min (>60); Estimated Creatinine Clearance 66.82 ml/min; Glucose 150 mg/dL (74-106); Magnesium 1.9 mg/dL (1.6-2.6); Sodium Level 138 mmol/L (136-145)
[2018-11-07 07:06] LABS: Bedside Glucose 157 mg/dL (70-110)
[2018-11-07] MEDS: Enoxaparin 40 MG/0.4 ML Syringe SC (09:05)
[2018-11-07] MEDS: Carvedilol 6.25 MG Tablet PO ×2 (09:05→21:43)
[2018-11-07] MEDS: Aspirin 81 MG TAB.CHEW PO (09:05)
[2018-11-07] MEDS: Clopidogrel Bisulfate 75 MG Tablet PO (09:05)
[2018-11-07] MEDS: Isosorbide Mononitrate 60 MG Tablet PO (09:05)
[2018-11-07] MEDS: Ranolazine 500 MG Tablet PO ×2 (09:05→21:43)
[2018-11-07] MEDS: Lisinopril 2.5 MG Tablet PO (09:05)
--- NOTE | 2018-11-07 11:59 | CON.PCM_ITS ---
Reason for Consult Date of Consultation: 11/07/18 Reason for Consultation: FALLS History of Present Illness: The patient is a 78 year old M WITH FREQUENT FALLS, FIRST fall was 1-2 months ago progressively worse. family also notes tremor and slurred speech, has been evaluated by [facility] and er visits, ncv recommended. per admit note:Chief Complaint: The patient is a 78-year-old male with past medical history of coronary disease status post CABG x4, hypertension, hyperlipidemia, atrial arrhythmia status post radiofrequency ablation, diabetes mellitus type 2 with history of fall approximately 1 to 2 months prior noted to have slipped at that time while getting out of his vehicle specifically an elevated truck, landing on his right hip with following this progressively worsening debility and ongoing hip pain with some mild initial transient improvement in the weakness but it is gradually worsened with ongoing frequent falls over the last several weeks, required use of a walker with family concern for slurred speech and also noted right upper extremity mild pill-rolling tremor. In the ED upon evaluation patient with right-sided facial droop as well as concern for slurred speech with the ED physician NIH scoring of 3; however, evaluation of patient difficult secondary to right lower extremity debility following his trauma prior to these new complaints. Work-up at the ED included T 98.4, heart rate 90, BP 136/70, respiratory rate 16, 99% on room air, CBC with WBC 7.3, hemoglobin 13.2, platelet 125 without market shift, BMP with glucose 131 otherwise not marked appearing, EKG with no acute evidence of ischemia, CT brain with no acute intracranial findings, plain film of the hip and pelvis right side with no acute findings. Past Medical History Past Medical History (Chronic Problems): Chronic Problems (Last Reviewed 11/07/18 @ 12:01 by Zelalem Coleman MD) CAD (coronary artery disease) (Chronic) Atrial arrhythmia (Chronic) History of non-ST elevation myocardial infarction (NSTEMI) (Chronic) Atherosclerosis of coronary artery of [place] heart without angina pectoris (Chronic) Hyperlipidemia (Chronic) Postsurgical aortocoronary bypass status (Chronic ~04/18/00) CABG x4- TAVAREZ to LAD, reverse SVG to CX, SVG to 2 branches on right Diabetes mellitus (Chronic) Hypertension (Chronic) Medical History: Medical History (Last Reviewed 11/07/18 @ 12:01 by Zelalem Coleman MD) Sinus bradycardia (Acute) R00.1 Atrial arrhythmia (Chronic) I49.8 History of non-ST elevation myocardial infarction (NSTEMI) (Chronic) I25.2 Atherosclerosis of coronary artery of [place] heart without angina pectoris (Chronic) I25.10 Hyperlipidemia (Chronic) E78.5 Diabetes mellitus (Chronic) E11.9 Hypertension (Chronic) I10 History of hiatal hernia Z87.19 History of sleep apnea Z86.69 Sleep apnea G47.30 Allergies erythromycin base Adverse Reaction (Mild, Verified 11/06/18 18:15) stomach problems Home Medications: Ambulatory Orders Medication Instructions Recorded Aspirin [[place] Aspirin] 81 mg PO DAILY 09/18/13 carvedilol 6.25 mg tablet 6.25 mg PO QHS 02/08/18 saw palmetto fruit 1 cap PO QDAY cap 02/13/18 extract-phytosterol combo 2 160 mg-250 mg capsule nitroglycerin 0.4 mg sublingual 0.4 mg SUBLINGUAL Q5-15M PRN #100 06/05/18 tablet tab Clopidogrel Bisulfate [Plavix] 75 mg PO DAILY 11/06/18 Isosorbide Mononitrate [Isosorbide 60 mg PO DAILY 11/06/18 Mononitrate ER] Lisinopril [Zestril] 2.5 mg PO QHS 11/06/18 Ranolazine [Ranexa] 500 mg PO DAILY 11/06/18 traMADol [Ultram (G)] 50 mg PO 4X/DAY PRN PRN 11/06/18 Surgical History: Surgical History (Last Reviewed 11/07/18 @ 12:01 by Zelalem Coleman MD) Postsurgical aortocoronary bypass status (Chronic) Onset Date: ~04/18/00 Z95.1 CABG x4- TAVAREZ to LAD, reverse SVG to CX, SVG to 2 branches on right History of cardiac radiofrequency ablation Onset Date: ~1991 Z98.890 History of cardiac catheterization Z98.890 03/2000, 04/2002,06/2007,08/2013 History of cholecystectomy Z90.49 History of cholecystectomy Z90.49 Surgical History: cholecystectomy, coronary bypass surgery Psychiatric History: No pertinent psych hx Lives: Spouse/ Significant Other Smoking Status: Never smoker Tobacco Use: Non-smoker Alcohol: None Drugs: None - *Family History Maternal Family History: Family History (Last Reviewed 02/13/18 @ 10:37 by Baylee Villa) Father Myocardial infarction Mother CVA (cerebral vascular accident) Brother CAD (coronary artery disease) Sister Colon cancer Sister Cancer Sister Heart disease History Items: Heart Disease Paternal Family History: Family History (Last Reviewed 02/13/18 @ 10:37 by Baylee Villa) Father Myocardial infarction Mother CVA (cerebral vascular accident) Brother CAD (coronary artery disease) Sister Colon cancer Sister Cancer Sister Heart disease History Items: Stroke Patient Problems: Active and Suspected Problems (Last Reviewed 11/07/18 @ 12:01 by Zelalem Coleman MD) CVA (cerebral vascular accident) (Acute) - Physical Exam General: Alert, Oriented x3, Cooperative, No apparent distress HEENT: PERRLA, EOMI Neurological: Cranial nerves II-XII grossly intact, - - bilateral ptosis legs 1/5r, 3/5 l Psych/Mental Status: Normal Affect, Alert and oriented to time, place, person, mood and affect Vital Signs Temp Pulse Resp BP Pulse Ox 37.1 C 63 16 149/77 H 98 11/07/18 09:01 11/07/18 10:44 11/07/18 09:01 11/07/18 09:01 11/07/18 09:01 Oxygen Delivery Method Room Air Weight: 97.386 kg Body Mass Index (BMI) 28.4 Intake and Output for Last 24 Hours 11/05/18 11/06/18 11/07/18 23:59 23:59 23:59 Intake Total 379 / 379 1166 / 1166 Output Total 200 / 200 Balance 179 / 179 1166 / 1166 Laboratory Tests Past 24 Hrs 11/06/18 11/06/18 11/06/18 15:40 15:40 15:40 WBC 7.3 RBC 4.16 L Hgb 13.2 Hct 39.2 L MCV 94.2 H MCH 31.7 MCHC 33.7 RDW 14.2 RDW Differential 48.6 H Plt Count 125 L MPV 9.7 Immature Gran % (Auto) 0.100 Neut % (Auto) 80.1 H Lymph % (Auto) 9.0 L [place] % (Auto) 9.5 Eos % (Auto) 1.2 Baso % (Auto) 0.1 Absolute Neuts (auto) 5.8 Absolute Lymphs (auto) 0.65 L Total Counted Not Reportable Sodium 139 Potassium 4.0 Chloride 105 Carbon Dioxide 28.0 Anion Gap 6 BUN 15 Creatinine 0.91 Estim Creat Clear Calc 75.61 Est GFR (MDRD) Af Amer 104 Est GFR (MDRD) Non-Af 86 BUN/Creatinine Ratio 16.5 Glucose 131 H Hemoglobin A1c Calcium 8.4 L Magnesium 1.8 Triglycerides Cholesterol LDL Cholesterol VLDL Cholesterol HDL Cholesterol TSH 1.13 Urine Color Urine Clarity Urine pH Ur Specific [place] Urine Protein Urine Glucose (UA) Urine Ketones Urine Occult Blood Urine Nitrite Urine Bilirubin Urine Urobilinogen Ur Leukocyte Esterase Urine RBC Urine WBC Ur Squamous Epith Cells Urine Bacteria Urine Mucus 11/06/18 11/06/18 11/07/18 15:40 22:24 05:14 WBC RBC Hgb Hct MCV MCH MCHC RDW RDW Differential Plt Count MPV Immature Gran % (Auto) Neut % (Auto) Lymph % (Auto) [place] % (Auto) Eos % (Auto) Baso % (Auto) Absolute Neuts (auto) Absolute Lymphs (auto) Total Counted Sodium Potassium Chloride Carbon Dioxide Anion Gap BUN Creatinine Estim Creat Clear Calc Est GFR (MDRD) Af Amer Est GFR (MDRD) Non-Af BUN/Creatinine Ratio Glucose Hemoglobin A1c 5.5 Calcium Magnesium Triglycerides 124 Cholesterol 144 LDL Cholesterol 95 VLDL Cholesterol 25 HDL Cholesterol 24 L TSH Urine Color Yellow Urine Clarity Clear Urine pH 6.5 Ur Specific [place] 1.010 Urine Protein Negative Urine Glucose (UA) Normal Urine Ketones 5 H Urine Occult Blood Negative Urine Nitrite Negative Urine Bilirubin 1 H Urine Urobilinogen 8 H Ur Leukocyte Esterase Negative Urine RBC 0 SEEN Urine WBC 0 SEEN Ur Squamous Epith Cells 0 SEEN Urine Bacteria 0 SEEN Urine Mucus 0 SEEN 11/07/18 05:14 WBC RBC Hgb Hct MCV MCH MCHC RDW RDW Differential Plt Count MPV Immature Gran % (Auto) Neut % (Auto) Lymph % (Auto) [place] % (Auto) Eos % (Auto) Baso % (Auto) Absolute Neuts (auto) Absolute Lymphs (auto) Total Counted Sodium 138 Potassium 4.0 Chloride 108 H Carbon Dioxide 23.0 Anion Gap 7 BUN 13 Creatinine 0.73 Estim Creat Clear Calc 66.82 Est GFR (MDRD) Af Amer 133 Est GFR (MDRD) Non-Af 110 BUN/Creatinine Ratio 17.7 Glucose 150 H Hemoglobin A1c Calcium 7.7 L Magnesium 1.9 Triglycerides Cholesterol LDL Cholesterol VLDL Cholesterol HDL Cholesterol TSH Urine Color Urine Clarity Urine pH Ur Specific [place] Urine Protein Urine Glucose (UA) Urine Ketones Urine Occult Blood Urine Nitrite Urine Bilirubin Urine Urobilinogen Ur Leukocyte Esterase Urine RBC Urine WBC Ur Squamous Epith Cells Urine Bacteria Urine Mucus POC Glucose 11/07/18 11/06/18 06:40 21:58 POC Glucose 157 H 101 Current Home Med List Medication Instructions Recorded Confirmed Type Aspirin [[place] Aspirin] 81 mg PO DAILY 09/18/13 11/06/18 History carvedilol 6.25 mg tablet 6.25 mg PO QHS 02/08/18 11/06/18 History saw palmetto fruit 1 cap PO QDAY cap 02/13/18 11/06/18 History extract-phytosterol combo 2 160 mg-250 mg capsule nitroglycerin 0.4 mg sublingual 0.4 mg SUBLINGUAL Q5-15M PRN #100 06/05/18 11/06/18 Rx tablet tab Clopidogrel Bisulfate [Plavix] 75 mg PO DAILY 11/06/18 11/06/18 History Isosorbide Mononitrate [Isosorbide 60 mg PO DAILY 11/06/18 11/06/18 History Mononitrate ER] Lisinopril [Zestril] 2.5 mg PO QHS 11/06/18 11/06/18 History Ranolazine [Ranexa] 500 mg PO DAILY 11/06/18 11/06/18 History traMADol [Ultram (G)] 50 mg PO 4X/DAY PRN PRN 11/06/18 11/06/18 History Current Medications Generic Name Dose Route Start Last Admin Trade Name Freq PRN Reason Stop Dose Admin Acetaminophen 650 mg 11/06/18 18:05 11/07/18 02:27 Tylenol PO 650 mg Q6H PRN PRN Administration Non-cardiac pain (mod-severe) Hydrocodone Bitart/Acetaminophen 1 - 2 tablet 11/06/18 18:05 [place] 5mg-325mg PO Q6H PRN PRN MOD-SEVERE PAIN (4-10/10) Al Hydroxide/Mg Hydroxide 15 - 30 ml 11/06/18 18:05 11/06/18 22:05 Mylanta Ii PO 30 ml Q4H PRN PRN Administration INDIGESTION Albuterol Sulfate 2.5 mg 11/06/18 18:05 Ventolin Aerosols INHALATION Q2H PRN PRN dyspnea, wheezing Aspirin 81 mg 11/07/18 08:00 11/07/18 09:05 Aspirin, Baby PO 81 mg DAILY@0800 [facility] Administration Atorvastatin Calcium 80 mg 11/06/18 22:00 11/06/18 22:05 Lipitor PO 80 mg QHS [facility] Administration Carvedilol 6.25 mg 11/06/18 22:00 11/07/18 09:05 Coreg PO 6.25 mg BID [facility] Administration Clopidogrel Bisulfate 75 mg 11/07/18 10:00 11/07/18 09:05 Plavix PO 75 mg DAILY [facility] Administration Dextrose 0 gm 11/06/18 18:05 D50w Syringe IV X1 PRN Hypoglycemia Protocol Enoxaparin Sodium 40 mg 11/07/18 10:00 11/07/18 09:05 Lovenox SC 40 mg DAILY@1000 [facility] Administration Glucagon 1 mg 11/06/18 18:05 IM .X1 PRN Hypoglycemia Hydralazine HCl 10 mg 11/06/18 18:05 Apresoline Iv IV Q4H PRN PRN SBP > 160 Magnesium Sulfate 2 gm/ Sodium 104 mls @ 52 mls/hr 11/07/18 11:19 Chloride IV 11/07/18 13:18 X1 ONE Insulin Human Lispro 0 unit 11/06/18 22:00 11/07/18 11:24 Humalog Kwikpen (Bkc) SQ Not Given ACHS [facility] Protocol Isosorbide Mononitrate 60 mg 11/07/18 10:00 11/07/18 09:05 Imdur PO 60 mg DAILY [facility] Administration Lisinopril 2.5 mg 11/07/18 10:00 11/07/18 09:05 Zestril PO 2.5 mg DAILY [facility] Administration Melatonin 3 mg 11/06/18 18:05 Melatonin PO QHS PRN PRN INSOMNIA Morphine Sulfate 1 - 2 mg 11/06/18 18:05 IV Q4H PRN PRN PAIN Nitroglycerin 0.4 mg 11/06/18 18:05 Nitrostat SUBLINGUAL Q5M PRN CARDIAC/CHEST PAIN Ondansetron HCl 4 mg 11/06/18 18:05 Zofran IV Q8H PRN PRN NAUSEA/VOMITING Ranolazine 500 mg 11/06/18 22:00 11/07/18 09:05 Ranexa PO 500 mg BID MICHELLE Administration Sodium Chloride 5 - 15 ml 11/07/18 02:30 11/06/18 21:40 IV 10 ml UD PRN Administration SALINE FLUSH mri and mra reviewed, no acute, no stenosis Assessment/Plan All Active Problems (Last Reviewed 11/07/18 @ 12:01 by Zelalem Coleman MD) CVA (cerebral vascular accident) (Acute) Sinus bradycardia (Acute) bilateral leg weakness, severe, constipation mri l/s pine bladder scan for pvr pt/ot
[2018-11-07 12:46] LABS: Bedside Glucose 138 mg/dL (70-110)
--- NOTE | 2018-11-07 13:41 | PCM.PROGNOTE ---
<Byron Zuniga - Last Filed: 11/07/18 13:41> Patient Problems: Active and Suspected Problems (Last Reviewed 11/07/18 @ 12:01 by Zelalem Coleman MD) CVA (cerebral vascular accident) (Acute) Subjective: No pain at all today. CT pelvis was negative. Pt is insistent on return home at [place]. His is hesitant saying that he is incapable of doing anything at home as he is so weak and has had multiple falls. He also has stairs to contend with at home. No increased focal weakness today, no dizziness/LH/SONG. Pt resting comfortably in bed NAD. Workup was negative for acute CVA. - Physical Exam General: Alert, Oriented x3, Cooperative HEENT: Atraumatic, PERRLA, EOMI, Normocephalic Neck: Supple, No JVD, Negative Carotid Bruits Lungs: Clear to auscultation, Normal air movement Cardiovascular: Regular rate, No murmurs Abdomen: Bowel Sounds Present, Soft, Non Tender Extremities: No edema, Capillary Refill Less than 3 Seconds Skin: No rashes, No breakdown Musculoskeletal: No Tenderness to Palpation of Joints or Extremities Neurological: Cranial nerves II-XII grossly intact Psych/Mental Status: Normal Affect, Appropriate, Alert and oriented to time, place, person, mood and affect Vital Signs Temp Pulse Resp BP Pulse Ox 98.7 F 63 16 149/77 H 98 11/07/18 09:01 11/07/18 10:44 11/07/18 09:01 11/07/18 09:01 11/07/18 09:01 Oxygen Delivery Method Room Air Weight: 214 lb 11.19 oz Body Mass Index (BMI) 28.4 Intake and Output for Last 24 Hours 11/05/18 11/06/18 11/07/18 23:59 23:59 23:59 Intake Total 379 / 379 1166 / 1166 Output Total 200 / 200 Balance 179 / 179 1166 / 1166 Laboratory Tests Past 24 Hrs 11/06/18 11/06/18 11/06/18 15:40 15:40 15:40 WBC 7.3 RBC 4.16 L Hgb 13.2 Hct 39.2 L MCV 94.2 H MCH 31.7 MCHC 33.7 RDW 14.2 RDW Differential 48.6 H Plt Count 125 L MPV 9.7 Immature Gran % (Auto) 0.100 Neut % (Auto) 80.1 H Lymph % (Auto) 9.0 L [place] % (Auto) 9.5 Eos % (Auto) 1.2 Baso % (Auto) 0.1 Absolute Neuts (auto) 5.8 Absolute Lymphs (auto) 0.65 L Total Counted Not Reportable Sodium 139 Potassium 4.0 Chloride 105 Carbon Dioxide 28.0 Anion Gap 6 BUN 15 Creatinine 0.91 Estim Creat Clear Calc 75.61 Est GFR (MDRD) Af Amer 104 Est GFR (MDRD) Non-Af 86 BUN/Creatinine Ratio 16.5 Glucose 131 H Hemoglobin A1c Calcium 8.4 L Magnesium 1.8 Triglycerides Cholesterol LDL Cholesterol VLDL Cholesterol HDL Cholesterol TSH 1.13 Urine Color Urine Clarity Urine pH Ur Specific [place] Urine Protein Urine Glucose (UA) Urine Ketones Urine Occult Blood Urine Nitrite Urine Bilirubin Urine Urobilinogen Ur Leukocyte Esterase Urine RBC Urine WBC Ur Squamous Epith Cells Urine Bacteria Urine Mucus 11/06/18 11/06/18 11/07/18 15:40 22:24 05:14 WBC RBC Hgb Hct MCV MCH MCHC RDW RDW Differential Plt Count MPV Immature Gran % (Auto) Neut % (Auto) Lymph % (Auto) [place] % (Auto) Eos % (Auto) Baso % (Auto) Absolute Neuts (auto) Absolute Lymphs (auto) Total Counted Sodium Potassium Chloride Carbon Dioxide Anion Gap BUN Creatinine Estim Creat Clear Calc Est GFR (MDRD) Af Amer Est GFR (MDRD) Non-Af BUN/Creatinine Ratio Glucose Hemoglobin A1c 5.5 Calcium Magnesium Triglycerides 124 Cholesterol 144 LDL Cholesterol 95 VLDL Cholesterol 25 HDL Cholesterol 24 L TSH Urine Color Yellow Urine Clarity Clear Urine pH 6.[address] 1.010 Urine Protein Negative Urine Glucose (UA) Normal Urine Ketones 5 H Urine Occult Blood Negative Urine Nitrite Negative Urine Bilirubin 1 H Urine Urobilinogen 8 H Ur Leukocyte Esterase Negative Urine RBC 0 SEEN Urine WBC 0 SEEN Ur Squamous Epith Cells 0 SEEN Urine Bacteria 0 SEEN Urine Mucus 0 SEEN 11/07/18 05:14 WBC RBC Hgb Hct MCV MCH MCHC RDW RDW Differential Plt Count MPV Immature Gran % (Auto) Neut % (Auto) Lymph % (Auto) [place] % (Auto) Eos % (Auto) Baso % (Auto) Absolute Neuts (auto) Absolute Lymphs (auto) Total Counted Sodium 138 Potassium 4.0 Chloride 108 H Carbon Dioxide 23.0 Anion Gap 7 BUN 13 Creatinine 0.73 Estim Creat Clear Calc 66.82 Est GFR (MDRD) Af Amer 133 Est GFR (MDRD) Non-Af 110 BUN/Creatinine Ratio 17.7 Glucose 150 H Hemoglobin A1c Calcium 7.7 L Magnesium 1.9 Triglycerides Cholesterol LDL Cholesterol VLDL Cholesterol HDL Cholesterol TSH Urine Color Urine Clarity Urine pH Ur Specific [place] [address] Urine Protein Urine Glucose (UA) Urine Ketones Urine Occult Blood Urine Nitrite Urine Bilirubin Urine Urobilinogen Ur Leukocyte Esterase Urine RBC Urine WBC Ur Squamous Epith Cells Urine Bacteria Urine Mucus POC Glucose 11/07/18 11/07/18 11/06/18 11:24 06:40 21:58 POC Glucose 138 H 157 H 101 Medical Necessity - Tobacco Use Smoking Status: Never smoker Tobacco Use: Non-smoker Assessment/Plan All Active Problems (Last Reviewed 11/07/18 @ 12:01 by Zelalem Coleman MD) CVA (cerebral vascular accident) (Acute) Sinus bradycardia (Acute) 1. Gradually increasing RLE weakness, slurred speech, difficulty swallowing, behavior change, resting and pill rolling tremor, masked facies - MRI/MRA negative for stroke. Echo bubble study negative for shunt. PTOT recommends continued PTOT. -symptoms concerning for parkinsons. -Neuro has seen pt and recommends MRI lumbar spine. -will see how he does with PTOT, likely home with home health or outpatient PTOT. -Will need follow up with his spinal surgeon at [facility]. He plans to have a nerve conduction study with this surgeon. 2. Atrial dysrhythmia-status post RFA-as noted above EKG with PACs PVCs. Mag jiang, repleted. 3. Coronary artery disease with prior CABG x4-patient of Dr. Grace-continue home medications 4. Type 2 diabetes-hold orals and check A1c 5. Hypertension, hyperlipidemia-continue home medications 6. 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 DVT prophylaxis: Lovenox Discharge planning: home either today or tomorrow with home health or outpatient PTOT This patient was seen by Byron Zuniga PA-C under the supervision of Doctor Fabiola <Shikha Hicks - Last Filed: 11/07/18 15:14> - Physical Exam Vital Signs Temp Pulse Resp BP Pulse Ox 98.7 F 63 16 149/77 H 98 11/07/18 09:01 11/07/18 10:44 11/07/18 09:01 11/07/18 09:01 11/07/18 09:01 Oxygen Delivery Method Room Air Weight: 214 lb 11.19 oz Body Mass Index (BMI) 28.4 Intake and Output for Last 24 Hours 11/05/18 11/06/18 11/07/18 23:59 23:59 23:59 Intake Total 379 / 379 1166 / 1166 Output Total 200 / 200 Balance 179 / 179 1166 / 1166 Laboratory Tests Past 24 Hrs 11/06/18 11/06/18 11/06/18 15:40 15:40 15:40 WBC 7.3 RBC 4.16 L Hgb 13.2 Hct 39.2 L MCV 94.2 H MCH 31.7 MCHC 33.7 RDW 14.2 RDW Differential 48.6 H Plt Count 125 L MPV 9.7 Immature Gran % (Auto) 0.100 Neut % (Auto) 80.1 H Lymph % (Auto) 9.0 L [place] % (Auto) 9.5 Eos % (Auto) 1.2 Baso % (Auto) 0.1 Absolute Neuts (auto) 5.8 Absolute Lymphs (auto) 0.65 L Total Counted Not Reportable Sodium 139 Potassium 4.0 Chloride 105 Carbon Dioxide 28.0 Anion Gap 6 BUN 15 Creatinine 0.91 Estim Creat Clear Calc 75.61 Est GFR (MDRD) Af Amer 104 Est GFR (MDRD) Non-Af 86 BUN/Creatinine Ratio 16.5 Glucose 131 H Hemoglobin A1c Calcium 8.4 L Magnesium 1.8 Triglycerides Cholesterol LDL Cholesterol VLDL Cholesterol HDL Cholesterol TSH 1.13 Urine Color Urine Clarity Urine pH Ur Specific [place] [address] Urine Protein Urine Glucose (UA) Urine Ketones Urine Occult Blood Urine Nitrite Urine Bilirubin Urine Urobilinogen Ur Leukocyte Esterase Urine RBC Urine WBC Ur Squamous Epith Cells Urine Bacteria Urine Mucus 11/06/18 11/06/18 11/07/18 15:40 22:24 05:14 WBC RBC Hgb Hct MCV MCH MCHC RDW RDW Differential Plt Count MPV Immature Gran % (Auto) Neut % (Auto) Lymph % (Auto) [place] % (Auto) Eos % (Auto) Baso % (Auto) Absolute Neuts (auto) Absolute Lymphs (auto) Total Counted Sodium Potassium Chloride Carbon Dioxide Anion Gap BUN Creatinine Estim Creat Clear Calc Est GFR (MDRD) Af Amer Est GFR (MDRD) Non-Af BUN/Creatinine Ratio Glucose Hemoglobin A1c 5.5 Calcium Magnesium Triglycerides 124 Cholesterol 144 LDL Cholesterol 95 VLDL Cholesterol 25 HDL Cholesterol 24 L TSH Urine Color Yellow Urine Clarity Clear Urine pH 6.[address] 1.010 Urine Protein Negative Urine Glucose (UA) Normal Urine Ketones 5 H Urine Occult Blood Negative Urine Nitrite Negative Urine Bilirubin 1 H Urine Urobilinogen 8 H Ur Leukocyte Esterase Negative Urine RBC 0 SEEN Urine WBC 0 SEEN Ur Squamous Epith Cells 0 SEEN Urine Bacteria 0 SEEN Urine Mucus 0 SEEN 11/07/18 05:14 WBC RBC Hgb Hct MCV MCH MCHC RDW RDW Differential Plt Count MPV Immature Gran % (Auto) Neut % (Auto) Lymph % (Auto) [place] % (Auto) Eos % (Auto) Baso % (Auto) Absolute Neuts (auto) Absolute Lymphs (auto) Total Counted Sodium 138 Potassium 4.0 Chloride 108 H Carbon Dioxide 23.0 Anion Gap 7 BUN 13 Creatinine 0.73 Estim Creat Clear Calc 66.82 Est GFR (MDRD) Af Amer 133 Est GFR (MDRD) Non-Af 110 BUN/Creatinine Ratio 17.7 Glucose 150 H Hemoglobin A1c Calcium 7.7 L Magnesium 1.9 Triglycerides Cholesterol LDL Cholesterol VLDL Cholesterol HDL Cholesterol TSH Urine Color Urine Clarity Urine pH Ur Specific [place] [address] Urine Protein Urine Glucose (UA) Urine Ketones Urine Occult Blood Urine Nitrite Urine Bilirubin Urine Urobilinogen Ur Leukocyte Esterase Urine RBC Urine WBC Ur Squamous Epith Cells Urine Bacteria Urine Mucus POC Glucose 11/07/18 11/07/18 11/06/18 11:24 06:40 21:58 POC Glucose 138 H 157 H 101 Assessment/Plan Hospitalist note: I am seeing this patient in conjunction with Byron Zuniga. I independently seen and examined the patient. Progress note above, laboratory data and imaging studies reviewed and I concur with the above treatment plan. Patient seen and examined. He denies any more pain. He mentioned that he has been having issues with weakness in the right side. His vital signs are stable. - Physical Exam General: Alert, Oriented x3, Cooperative, No apparent distress. HEENT: Atraumatic, PERRLA, EOMI. Neck: Supple, No JVD, Negative Carotid Bruits, Trachea Midline, Thyroid Normal. Lungs: Clear to auscultation, Normal air movement, No rhonchi, No wheeze, No rales. Cardiovascular: Regular rate, Regular Rhythm, Normal S1, Normal S2, PMI Normal. Abdomen: Bowel Sounds Present, Soft, Non Tender, Non-Distended, No Hepato-splenomegaly. Extremities: No clubbing, No cyanosis, No edema Skin: No rashes, No breakdown Neurological: Cranial nerves are intact. Power on the left side is 5 x 5, power on the right upper extremity is 4+ by 5, power on the right lower extremity is 4 x 5. Vital Signs are stable. Assessment and plan: #1 bilateral versus increasing right lower extremity weakness/swallowing difficulty/resting tremor: Imaging studies including CT scan brain, MRI brain, MRA of the head and neck was unremarkable, acute stroke ruled out. 2D echocardiogram revealed ejection fraction of 55%, bubble contrast study was negative for [id number] shunt, other findings reviewed. Acute stroke ruled out. Neurology consulted, recommended MRI lumbar spine. Vital signs are stable. Patient is on aspirin and statins. Plan for PT OT, awaiting MRI lumbar spine, anticipate discharge home tomorrow. #2 frequent falls/debility: Imaging studies was unremarkable. CT scan pelvis showed no acute fractures. Patient complained of right hip pain but resolved. #3 other chronic medical problems: Stable, continue current medications as above. This note was generated with Vers[employer] dictation software. It may contain incorrect words, spelling, and punctuation that were not noted in checking the note before signing. Code Visit OBSV E&M: 60018 Subsequent observation care L2
--- NOTE | 2018-11-07 15:30 | CASEMGMT ---
Addendum entered by Tyrese Henderson 11/07/18 15:48: Referral faxed to [facility] for their review. Jay GREEN CM updated. Oliver STERLING Original Note: RN CM Note Presentation: weakness, facial droop. Intro role of CM to patient and his family. Pt is alert, able to participate in RN CM Assessment. PCP Dr. Wilhelm [facility]: [facility] benefit: yes Living arrangements: 2 story home, no steps to enter. able to assist. Generally independent @ home. Started using walker 2 weeks ago after fall. DME: walker- family bought new walker for pt and brought to hospital. Raised toilet seat, side rails o toilet and tub bench HHC: pt would like [facility] on dc for Pt/OT. Agreeable to any agency which will service their area. [place] [facility] Cannot service area -call and message left with [facility] FAX . requesting if they can accept referral for Pt/OT. DC PLAN: home with [facility]. Oliver STERLING
--- NOTE | 2018-11-07 16:11 | CASEMGMT ---
RN HERNAN NOTE: Spoke w/[facility]. They are not in-network with [facility]. Call placed to [facility] They state they are not able to accept pt d/t they do not have staffing. Call placed to [facility]. They do not service pt's area. Call placed to [facility] and spoke w/Day. Day states they are In-network with [facility] and they do service [facility]. Referral packet faxed to [facility]. Detention and Speech therapy also added to [facility] order. [facility]: PH:[phone] Neil POWERS RN CM
[2018-11-07 17:00] LABS: Bedside Glucose 126 mg/dL (70-110)
[2018-11-07] MEDS: Atorvastatin Calcium 80 MG Tablet PO (21:43)
[2018-11-07 21:50] LABS: Bedside Glucose 137 mg/dL (70-110)
[2018-11-08 00:20] VITALS: PULSE 63
[2018-11-08 02:42] VITALS: BP 138/76; PULSE 63; RESP 16; TEMP 36.7; O2SAT 100
[2018-11-08 03:08] VITALS: BMI 28.4
[2018-11-08 04:06] VITALS: PULSE 60
[2018-11-08 06:26] LABS: Bedside Glucose 133 mg/dL (70-110)
[2018-11-08 07:00] VITALS: PULSE 63
[2018-11-08 07:02] VITALS: O2SAT 99
[2018-11-08 09:36] VITALS: BP 139/84; PULSE 67; RESP 16; TEMP 37.1; O2SAT 99
[2018-11-08] MEDS: Clopidogrel Bisulfate 75 MG Tablet PO (09:40)
[2018-11-08] MEDS: Enoxaparin 40 MG/0.4 ML Syringe SC (09:40)
[2018-11-08] MEDS: Carvedilol 6.25 MG Tablet PO (09:40)
[2018-11-08] MEDS: Lisinopril 2.5 MG Tablet PO (09:40)
[2018-11-08] MEDS: Aspirin 81 MG TAB.CHEW PO (09:40)
[2018-11-08] MEDS: Ranolazine 500 MG Tablet PO (09:40)
[2018-11-08] MEDS: Isosorbide Mononitrate 60 MG Tablet PO (09:40)
--- NOTE | 2018-11-08 10:02 | CASEMGMT ---
RN CM NOTE: Pt resting in bed. @ bedside. Reviewed AL form with pt and and questions answered. AL form signed by pt, copy made and placed on chart, and original given to pt/. They were made aware to contact CM if they have further questions. Neil DAVISN RN CM
[2018-11-08] MEDS: Insulin Lispro 100 UNIT/ML INSULN.PEN SQ (11:13)
--- NOTE | 2018-11-08 11:33 | DCINST_ITS ---
- Discharge Diagnoses Current Active Problems: Current Active and Chronic Problems (Last Reviewed 11/07/18 @ 12:01 by Zelalem Coleman MD) CVA (cerebral vascular accident) (Acute) CAD (coronary artery disease) (Chronic) You will use the following diet at home:: Calorie/Carbohydrate Controlled (specify 1200, 1400, etc) - 2000 rasheed / day, Cardiac Your food should be the consistency of: Regular Your liquids should be the consistency of: Regular/Thin Discharge Activity: Return to Normal Activity Allergies/Adverse Reactions: Allergies erythromycin base Adverse Reaction (Mild, Verified 11/06/18 18:15) stomach problems Medications to take at Discharge Aspirin [[place] Aspirin] 81 mg PO DAILY 09/18/13 carvedilol 6.25 mg tablet 6.25 mg PO QHS 02/08/18 saw palmetto fruit extract-phytosterol combo 2 160 mg-250 mg capsule 1 cap PO QDAY cap 02/13/18 nitroglycerin 0.4 mg sublingual tablet 0.4 mg SUBLINGUAL Q5-15M PRN #100 tab 06/05/18 Clopidogrel Bisulfate [Plavix] 75 mg PO DAILY 11/06/18 Isosorbide Mononitrate [Isosorbide Mononitrate ER] 60 mg PO DAILY 11/06/18 Lisinopril [Zestril] 2.5 mg PO QHS 11/06/18 Ranolazine [Ranexa] 500 mg PO DAILY 11/06/18 traMADol [Ultram] 50 mg PO 4X/DAY PRN PRN 11/06/18 Atorvastatin Calcium 40 mg PO DAILY #30 tab 11/08/18 The following prescriptions were given: Atorvastatin Calcium 40 mg PO DAILY #30 tab Transmission Status: [id number] Primary Care Physician: Mike Wilhelm MD [Primary Care Provider] - Please follow up with your Primary Care Physician in: 1-2 weeks Test Results: Test results from this visit will be discussed in further detail at your follow- up appointment, if applicable. Please Follow Up With: Neurosurgery - [facility] When: 2 weeks
[2018-11-08 11:35] LABS: Bedside Glucose 168 mg/dL (70-110)
--- NOTE | 2018-11-08 11:50 | CASEMGMT ---
Addendum entered by Adam Xavier 11/08/18 11:56: Pt and both made aware [facility] plan on start of care tomorrow 11/09/18. Original Note: NORMA BECERRA NOTE: Discharge order is in. Discharge instructions faxed to [facility] @ . MRI results also faxed. Will fax discharge summary once it is available. Call placed to [facility] and spoke with Tressa. She was made aware pt is discharging today. She states they are planning on Start of Care tomorrow 11/09/18. Neil POWERS RN CM
--- NOTE | 2018-11-08 12:09 | MRI_ITS ---
STUDY: MRI LUMBAR SPINE WITHOUT CONTRAST REASON FOR EXAM: Male, 78 years old. Leg weakness with frequent falls. Patient also has right leg pain. TECHNIQUE: Standardized fat and water weighted pulse sequences were obtained in the sagittal and axial planes. COMPARISON: None FINDINGS: T12-L1: Normal endplates. Normal disc height, signal and morphology. Normal bilateral facet joints. Normal central canal and bilateral lateral recesses. Normal bilateral intervertebral neural foramina. There is straightening of the normal lumbar lordosis. There is no substantial scoliosis. Normal conus medullaris that terminates at the L1 level. L1-2: Normal endplates. Normal disc height, hydration and morphology. Normal bilateral facet joints. Normal central canal and bilateral lateral recesses. Normal bilateral intervertebral neural foramina. L2-3: There is a focal right central foraminal disc protrusion. There is mild degenerative arthropathy of facet joints. There is an annular disc bulge and osteophyte complex with mild central acquired canal stenosis. There is no evidence for nerve impingement. L3-4: There is a broad central disc protrusion. There is moderate degenerative arthropathy of the facet joints. There is moderate acquired canal stenosis. Neural foramina are moderately narrowed with potential impingement of the left L3 nerve root at the neural foramen. L4-5: There is narrowing of the disc with irregular endplates. There is moderate annular disk bulge and osteophyte complex. There is mild degenerative arthropathy of the facet joints. Bilateral neuroforamina are narrowed with MR evidence for potential LEFT-sided L4 nerve impingement. There is mild acquired central canal stenosis. L5-S1: There is narrowing of the disc. There is a focal left central disc protrusion with possible impingement of the left S1 nerve root at the lateral recess. Neural foramina are moderately narrowed with potential impingement of the left L5 nerve root at the neural foramen. There is mild degenerative arthropathy of the facet joints. Normal visualized sacral ala. Normal visualized paraspinous soft tissue structures. MRI/Spine Lumbar (Routine) IMPRESSION: Moderately severe multilevel degenerative disc disease and degenerative arthropathy of the lumbar spine with neural foraminal narrowing, acquired canal stenosis and potential neural impingement as described. Electronically Signed: Nayeli Meyers MD at 10:14 EDT , Service support ,
[2018-11-08 13:09] LABS: Erythrocyte Sedimentation Rate 10 mm/hr (0-20)
[2018-11-08 13:49] LABS: CPK Total, Creatine Kinase 30 U/L (39-308)
--- NOTE | 2018-11-08 15:34 | PCM.DC.SUM ---
<Byron Zuniga - Last Filed: 11/08/18 15:34> Discharge Date and Diagnosis Date of Admission: 11/06/18 Date of Discharge: 11/08/18 - Primary Discharge Diagnosis Progressive right sided weakness, personality change, resting tremor, CVA ruled out, suspect 2/2 Parkinsons Multilevel degenerative disc disease, degenerative arthropathy, Lumbar stenosis, foraminal stenosis neural impingement left side. Hx atrial dysrhythmia s/p RFA in the past CAD prior CABGx4 T2DM HTN, HLD - Secondary Discharge Diagnosis Chronic Problems (Last Reviewed 11/07/18 @ 12:01 by Zelalem Coleman MD) CAD (coronary artery disease) (Chronic) Atrial arrhythmia (Chronic) History of non-ST elevation myocardial infarction (NSTEMI) (Chronic) Atherosclerosis of coronary artery of [place] heart without angina pectoris (Chronic) Hyperlipidemia (Chronic) Postsurgical aortocoronary bypass status (Chronic ~04/18/00) CABG x4- ATVAREZ to LAD, reverse SVG to CX, SVG to 2 branches on right Diabetes mellitus (Chronic) Hypertension (Chronic) Hospital Course and Treatment Imaging Results: IMAGIN11/08/18 12:09 Spine Lumbar (Routine) [MRI] Urgent MRI/Spine Lumbar (Routine) IMPRESSION: Moderately severe multilevel degenerative disc disease and degenerative arthropathy of the lumbar spine with neural foraminal narrowing, acquired canal stenosis and potential neural impingement as described. CT/Brain/Head without Contrast IMPRESSION: Normal unenhanced CT scan of the brain. RAD/HIP, UNI W/ Pelvis 2-3 Views IMPRESSION: Normal x-ray examination of the pelvis and hip. MRI/Brain without Contrast IMPRESSION: No evidence of acute intracranial bleed, mass or ischemia. MRI/MRA Head ONLY without Contrast IMPRESSION: No evidence of significant steno-occlusive disease or aneurysm. MRI/MRA Neck without Contrast IMPRESSION: No evidence of significant steno-occlusive disease or aneurysm. CT/Pelvis without IV Contrast IMPRESSION: Normal unenhanced CT of the pelvis. Echo: Interpretation Summary The study was technically difficult. Contrast injection was performed. Left ventricular systolic function is normal. The estimated ejection fraction is 55 %. Post operative septal motion. Mild concentric left ventricular hypertrophy. The left atrium is mildly enlarged. Mild (1+) eccentric mitral valve insufficiency. Mild tricuspid valve insufficiency. Trivial aortic valve insufficiency. Unable to estimate RV systolic pressure/pulmonary artery pressure due to technically difficult study. Transmitral diastolic flow velocities suggest diastolic dysfunction (pseudonormal pattern). Bubble contrast study negative for right to left interatrial shunt. Consults: Neuro - Coleman Operations: None Procedures: 2-D Echocardiogram Summary of Care Provided: Hospital Course: The patient is a 78 year old M with past medical history of type 2 diabetes, CAD with prior CABG x4, hypertension, hyperlipidemia, chronic lower extremity edema, atrial dysrhythmia status post RFA, who presented to the emergency room with complaints of right-sided weakness that had been progressing over the past month. This was associated with multiple falls over the past month with the most recent being 2 days prior to presentation in which she fell getting out of his car struck his hip and head. He had ongoing hip pain from this. He had also had worsening memory, personality change per his family, slurring of speech, right-sided facial droop. In the ER a CT of the brain was obtained which was negative, x-ray of the hip was negative. Labs were unremarkable. He was admitted to the PCU with concerns for acute CVA. He presented with masked face ease, and pill-rolling tremor, and with the above subjective complaints was felt that there was also a concern for underlying Parkinson's disease. In the PCU and MRI of the brain was obtained which was negative for an acute process. MRA of the head and neck were also negative. CT of the pelvis was obtained as he had ongoing hip pain at presentation-this was negative for acute process. An echocardiogram was obtained with results as above, no septal defect. TSH was normal. A1c was 5.5. Neurology was consulted for further guidance. An MRI of the lumbar spine was obtained with multilevel degenerative disc changes, foraminal stenosis, central canal stenosis, and left-sided nerve impingement. A nerve conduction study was done with results pending at this time. The patient did poorly with PT and OT, however he was insistent on returning home. He was agreeable to home with home health care. He has great difficulty ambulating with assistance and with a walker, and he will need to ambulate in the home and to be able to handle stairs going home. He will require physical therapy at home for this reason. He was advised to follow-up with neurology for further work-up in 3 to 4 weeks. He was also advised to follow-up with a neurosurgeon for his severe spinal issues-he has seen a neurosurgeon in the past at the [facility]. He will also need to follow-up with his PCP in 1 to 2 weeks. The patient was discharged home in stable condition. He was already on baby aspirin daily, I did prescribe him moderate dose atorvastatin at discharge based on his ASCVD plus risk score and his history of coronary disease. This patient was seen by Byron Zuniga PA-C under the supervision of Doctor Fabiola. [] - Physical Exam General: Alert, Oriented x3, Cooperative HEENT: Atraumatic, PERRLA, EOMI, Normocephalic Neck: Supple, No JVD, Negative Carotid Bruits Lungs: Clear to auscultation, Normal air movement Cardiovascular: Regular rate, No murmurs Abdomen: Bowel Sounds Present, Soft, Non Tender Extremities: No edema, Capillary Refill Less than 3 Seconds Skin: No rashes, No breakdown Musculoskeletal: No Tenderness to Palpation of Joints or Extremities Neurological: Cranial nerves II-XII grossly intact Psych/Mental Status: Normal Affect, Appropriate, - Vital Signs Temp Pulse Resp BP Pulse Ox 98.8 F 67 16 139/84 H 99 11/08/18 09:36 11/08/18 09:36 11/08/18 09:36 11/08/18 09:36 11/08/18 09:36 Oxygen Delivery Method Room Air Weight: 214 lb 11.19 oz Body Mass Index (BMI) 28.4 Intake and Output for Last 24 Hours 11/06/18 11/07/18 11/08/18 23:59 23:59 23:59 Intake Total 379 / 379 1538 / 1538 240 / 240 Output Total 200 / 200 463 / 963 500 / 500 Balance 179 / 179 1075 / 575 -260 / -260 Laboratory Tests Past 24 Hrs 11/08/18 11/08/18 11/08/18 12:40 12:40 12:40 ESR 10 Total Creatine Kinase 30 L C-React Prot High Sens 63.50 H Acetylchol Rcpt Block Ab Pending Acetylchol Rcpt Modu Ab Pending POC Glucose 0611/08/18 11/07/18 11:07 06:14 21:46 POC Glucose 168 H 133 H 137 H 11/07/18 16:51 POC Glucose 126 H Discharge Diet: Low fat/ Low Cholesterol, 1800 Calorie Control Diet, 2000 mg Sodium Diet Discharge Activity: Return to Normal Activity Home Medications: Medications to take at Discharge Aspirin [[place] Aspirin] 81 mg PO DAILY 09/18/13 carvedilol 6.25 mg tablet 6.25 mg PO QHS 02/08/18 saw palmetto fruit extract-phytosterol combo 2 160 mg-250 mg capsule 1 cap PO QDAY cap 02/13/18 nitroglycerin 0.4 mg sublingual tablet 0.4 mg SUBLINGUAL Q5-15M PRN #100 tab 06/05/18 Clopidogrel Bisulfate [Plavix] 75 mg PO DAILY 11/06/18 Isosorbide Mononitrate [Isosorbide Mononitrate ER] 60 mg PO DAILY 11/06/18 Lisinopril [Zestril] 2.5 mg PO QHS 11/06/18 Ranolazine [Ranexa] 500 mg PO DAILY 11/06/18 traMADol [Ultram] 50 mg PO 4X/DAY PRN PRN 11/06/18 Atorvastatin Calcium 40 mg PO DAILY #30 tab 11/08/18 Oxycodone [Oxyir] 5 mg PO Q6H PRN PRN 4 Days #16 tab 11/08/18 Following Prescrptions Were Given to Patient: Atorvastatin Calcium 40 mg PO DAILY #30 tab Transmission Status: Received by [facility]/pharmacy #[id number] Oxycodone [Oxyir] 5 mg PO Q6H PRN PRN 4 Days #16 tab PRN Reason: Mod-Severe Pain (-03/01) Transmission Status: [id number] Primary Care Physician: Mike Wilhelm MD [Primary Care Provider] - Please follow up with your Primary Care Physician in: 1-2 weeks Please Follow Up With: Neurosurgery - [facility] When: 2 weeks Disposition: Home with Home Health Minutes spent on discharge:: 35 Patient Condition:: Stable Medical Necessity - Tobacco Use Smoking Status: Never smoker Tobacco Use: Non-smoker Meaningful Use Info Meaningful Use Diagnoses (Choose all that apply): None applicable <Shikha Hicks E - Last Filed: 11/09/18 12:12> Discharge Date and Diagnosis - Secondary Discharge Diagnosis Chronic Problems (Last Reviewed 11/07/18 @ 12:01 by Zelalem Coleman MD) CAD (coronary artery disease) (Chronic) Atrial arrhythmia (Chronic) History of non-ST elevation myocardial infarction (NSTEMI) (Chronic) Atherosclerosis of coronary artery of [place] heart without angina pectoris (Chronic) Hyperlipidemia (Chronic) Postsurgical aortocoronary bypass status (Chronic ~04/18/00) CABG x4- TAVAREZ to LAD, reverse SVG to CX, SVG to 2 branches on right Diabetes mellitus (Chronic) Hypertension (Chronic) Hospital Course and Treatment Imaging Results: 11/08/18 12:09 Spine Lumbar (Routine) [MRI] Urgent Summary of Care Provided: Hospitalist note: Discharge summary above reviewed and I concur with the above discharge and treatment plan. Patient was admitted for worsening right-sided weakness, resting tremors and frequent falls. There was a concern that patient may have acute stroke. Stroke work-up performed and acute stroke ruled out. Initial CT scan brain without contrast showed no acute findings. MRI brain showed no evidence of acute infarct or hemorrhage. MRA of the head and neck was unremarkable. 2D echocardiogram revealed ejection fraction 55%, bubble contrast study that was negative for [id number] shunt. Neurology consulted and recommended MRI lumbar spine which was done and revealed moderately severe multilevel degenerative disc disease, degenerative arthropathy with neural foraminal narrowing, acquired canal stenosis and potential neural impingement at levels L3-L4, L4-L5, L5-S1. Patient did have a history of chronic back problems. Interestingly, weakness was on the right lower extremity but was not on the left side. Patient did not complain of significant acute back pain. His above symptoms could be due to Parkinson's disease. His routine blood work was unremarkable. TSH was normal. His vitals were stable throughout admission. Patient discharged home in a stable medical condition, discharged on aspirin and statins, discharged on OxyIR PRN for pain, recommend to follow-up with PCP in 1 to 2 weeks, recommended referral to neurosurgery as outpatient. - Physical Exam General: Alert, Oriented x3, Cooperative, No apparent distress. HEENT: Atraumatic, PERRLA, EOMI. Neck: Supple, No JVD, Negative Carotid Bruits, Trachea Midline, Thyroid Normal. Lungs: Clear to auscultation, Normal air movement, No rhonchi, No wheeze, No rales. Cardiovascular: Regular rate, Regular Rhythm, Normal S1, Normal S2, PMI Normal. Abdomen: Bowel Sounds Present, Soft, Non Tender, Non-Distended, No Hepato-splenomegaly. Extremities: No clubbing, No cyanosis, No edema Skin: No rashes, No breakdown Neurological: Cranial nerves are intact. Power on the left side is 5 x 5, power on the right upper extremity is 4+ by 5, power on the right lower extremity is 4 x 5. Vital Signs are stable. This note was generated with Interwise dictation software. It may contain incorrect words, spelling, and punctuation that were not noted in checking the note before signing. - Physical Exam Vital Signs Temp Pulse Resp BP Pulse Ox 98.8 F 67 16 139/84 H 99 11/08/18 09:36 11/08/18 09:36 11/08/18 09:36 11/08/18 09:36 11/08/18 09:36 Oxygen Delivery Method Room Air Weight: 214 lb 11.19 oz Body Mass Index (BMI) 28.4 Intake and Output for Last 24 Hours 11/06/18 11/07/18 11/08/18 23:59 23:59 23:59 Intake Total 379 / 379 1538 / 1538 240 / 240 Output Total 200 / 200 463 / 963 500 / 500 Balance 179 / 179 1075 / 575 -260 / -260 Laboratory Tests Past 24 Hrs 11/08/18 11/08/18 11/08/18 12:40 12:40 12:40 ESR 10 Total Creatine Kinase 30 L C-React Prot High Sens 63.50 H Acetylchol Rcpt Block Ab Pending Acetylchol Rcpt Modu Ab Pending POC Glucose 11/08/18 11/08/18 11/07/18 11:07 06:14 21:46 POC Glucose 168 H 133 H 137 H 11/07/18 16:51 POC Glucose 126 H Disposition: Home with Home Health Minutes spent on discharge:: 27 Patient Condition:: Stable Meaningful Use Info Meaningful Use Diagnoses (Choose all that apply): None applicable Code Visit OBSV E&M: 82498 Observation care discharge
--- NOTE | 2018-11-09 13:10 | CASEMGMT ---
NORMA CM Note: DC summary faxed to [facility]. Oliver POWERS RN ACM
[2018-11-17 11:32] LABS: ACHR AB Modulating <12 % (0-20); ACHR Recep AB, Blocking 15 % (0-25)
--- NOTE | 2018-11-28 10:00 | NEURO ---
NCS and/or EMG Patient Report Ordering Doctor: Zelalem Coleman DATE OF SERVICE: 11/28/18 This is a bilateral lower extremity nerve conduction study performed on this 78-year-old male who presented to the hospital with a 2-month history of progressively worsening weakness and falling. Family has also noted tremor and slurred speech. He had previously been evaluated as an outpatient and nerve conduction study had been recommended. Bilateral lower extremity sensory and motor nerve conduction study was performed. The sural sensory responses are absent bilaterally. There is diffuse slowing of nerve conduction velocities with prolonged distal latencies and suppression of amplitudes from the common peroneal and tibial nerves symmetrically bilaterally. The tibial and common peroneal F-wave latencies are bilaterally prolonged and the tibial H reflex responses are bilaterally reduced in amplitude. Impression this is an abnormal nerve conduction study of the bilateral lower extremities consistent with severe polyneuropathy.
== END 2018-11-08 11:34 | disposition home health service (06) ==
LOC: ED 16:23 → PCU 11-07 05:30
PROVIDERS: Family Medicine; Psychiatry & Neurology Neurology; Admitting Provider Family Medicine; Emergency Provider Emergency Medicine; Family Provider Family Medicine; PCP Family Medicine; Referring Provider Family Medicine; Visit Provider Hospitalist
DX: R53.1 Weakness (principal); R25.1 Tremor, unspecified; M51.36 Other intervertebral disc degeneration, lumbar region; M48.061 Spinal stenosis, lumbar region without neurogenic claudication; R29.6 Repeated falls; I25.10 Atherosclerotic heart disease of native coronary artery without angina pectoris; R47.81 Slurred speech; R29.703 NIHSS score 3; E11.9 Type 2 diabetes mellitus without complications; E78.5 Hyperlipidemia, unspecified; I10 Essential (primary) hypertension; M25.551 Pain in right hip; R29.810 Facial weakness; G47.30 Sleep apnea, unspecified; I25.2 Old myocardial infarction; Z79.899 Other long term (current) drug therapy; Z79.82 Long term (current) use of aspirin; Z79.02 Long term (current) use of antithrombotics/antiplatelets; Z95.1 Presence of aortocoronary bypass graft; R13.10 Dysphagia, unspecified; R20.2 Paresthesia of skin; R20.0 Anesthesia of skin; I49.3 Ventricular premature depolarization; R60.0 Localized edema; K59.00 Constipation, unspecified
CPT/HCPCS: 36415; 70450; 70544; 70547; 70551; 72148; 72192; 73502; 80048; 80061; 81001; 82550; 82962; 83036; 83519; 83735; 84443; 85025; 85652; 86141; 92523; 92610; 93005; 93306; 95910; 96360; 96361; 96372; 97162; 97166; 97530; 97802; 99218; 99283; 99406; J7030; J7040; Q9957; A4216; C8929; G0378

== ENCOUNTER → 2018-11-15 | Outpatient (CLI) | payer MEDICARE, SELFPAY ==
[2018-11-08 03:08] VITALS: BMI 28.4
[2018-11-15 09:23] LABS: Bacteria 0 SEEN /hpf (None Seen); Mucous, Urine 0 SEEN /hpf (<or=2+); Red Blood Cells-Urine 0 SEEN /hpf (0-5)
[2018-11-15 10:12] LABS: Color, Urine Yellow (Yellow); Glucose, Dipstick Normal (Normal); Ketone-Dipstick 5 mg/dl (Negative); Leukocyte Esterase-Dipstick 25 /ul (Negative); Nitrite-Dipstick Positive (Negative); Occult Blood-Urine Negative /ul (Negative); Protein-Dipstick Negative (Negative); Urine Bilirubin Dipstick Negative (Negative); Urine Clarity Clear (Clear); Urine Urobilinogen 1 mg/dl (Normal)
[2018-11-15 10:18] LABS: Squamous Epithelial Cells - UA 0-5 SEEN /hpf (0-5)
[2018-11-15 10:19] LABS: White Blood Cells 0-5 SEEN /hpf (0-5)
== END | disposition home or self-care (01) ==
LOC: LABSPEC 09:19
PROVIDERS: Family Provider Family Medicine; PCP Family Medicine; Referring Provider Family Medicine; Visit Provider Family Medicine
DX: R33.9 Retention of urine, unspecified (principal)
CPT/HCPCS: 81001; 87086; 87088

== ENCOUNTER → 2018-11-17 | Outpatient (CLI) | payer MEDICARE, SELFPAY ==
[2018-11-08 03:08] VITALS: BMI 28.4
--- NOTE | 2018-11-17 16:00 | MRI_ITS ---
STUDY: MRI THORACIC SPINE WITH AND WITHOUT CONTRAST REASON FOR EXAM: Male, 78 years old. Right leg weakness, multiple falls over 3 weeks, concern for thoracic cord lesion TECHNIQUE: 20 IV Dotarem was administered for the contrast portion of the examination. COMPARISON: None. FINDINGS: Normal kyphosis of the thoracic spine. There is no substantial scoliosis. T1-2, T2-3, T3-4, T4-5, T5-6, T6-7, T9-10, T10-11, T11-12: Normal endplates. Normal disc hydration, heights and morphology of the corresponding intervertebral discs. Normal central canal and intervertebral neural foramina at the corresponding levels. T7-8: Right paracentral annular fissure without compressive sequelae. T8-9: Central and left paracentral annular fissure without compressive sequelae. Normal visualized thoracic cord. Normal conus medullaris that terminates at the L1 level.. The soft tissue structures are unremarkable. There is no enhancing abnormality. Median sternotomy wires. MRI/Spine Thoracic W/WO Contrast IMPRESSION: No evidence of cord pathology. Multilevel degenerative disease as described. No evidence of nerve root impingement. No evidence of compression fracture. Electronically Signed: Nicko Harris MD at 16:51 EDT Tel , Service support ,
[2018-11-17 17:31] LABS: Anion Gap 8 (5-15); BUN 12 mg/dL (7-18); BUN/Creat Ratio 14.8 RATIO (10-20); Calcium,Total 8.6 mg/dL (8.5-10.1); Chloride 107 mmol/L (98-107); Creatinine, Serum 0.81 mg/dL (0.70-1.30); EST Glomerular Filtration Rate 98 mL/min (>60); Est Glom Filt Rate - Afr Amer 118 mL/min (>60); Glucose 102 mg/dL (74-106); Potassium 4.2 mmol/L (3.5-5.1); Sodium Level 140 mmol/L (136-145)
== END | disposition home or self-care (01) ==
PROVIDERS: Family Provider Family Medicine; PCP Family Medicine; Referring Provider Family Medicine; Visit Provider Family Medicine
DX: E83.51 Hypocalcemia (principal); R79.82 Elevated C-reactive protein (CRP); G95.9 Disease of spinal cord, unspecified
CPT/HCPCS: 36415; 72157; 80048; 82330; 86140; A9575

== ENCOUNTER 2018-11-30 09:43 | Emergency (ER) | payer MEDICARE, SELFPAY ==
[2018-11-30 09:44] VITALS: BP 140/65; PULSE 58; RESP 16; TEMP 36.5; O2SAT 100; BMI 25.0
--- NOTE | 2018-11-30 10:18 | EKG12_ITS ---
Test Reason : ABD PAIN Blood Pressure : / mmHG Vent. Rate : 069 BPM Atrial Rate : 069 BPM P-R Int : 176 ms QRS Dur : 096 ms QT Int : 460 ms P-R-T Axes : 039 003 058 degrees QTc Int : 492 ms Sinus rhythm with frequent Premature ventricular complexes in a pattern of bigeminy Nonspecific ST abnormality Prolonged QT Abnormal ECG Confirmed by JORDON NAVARRO, NALLELY ([id number]), news assignment editor ARGENIS SAMANO ([id number]) on 12/01/2018 12:10:06 PM Referred By: ERICK Confirmed By:NALLELY RUVALCABA MD
--- NOTE | 2018-11-30 10:18 | ED.DCSUM_ITS ---
History of Present Illness Chief Complaint: Abd Pain Detail of Chief Complaint: constipation Informant: Patient, Family Onset: Weeks - 6 Context: Gradual Onset Timing: Continuous Quality: weakness, constipated Current Severity: Severe Maximum Severity: Severe Worsened by: nothing Relieved by: fleets suppositories - gives him a small BM, which helps sx a little Narrative: Assessment an ongoing issue for 6 weeks or so. Patient is not eating because he is constipated, subsequently losing weight, he states as of weighing himself last week, he has lost around 25-30 pounds over the past 6 weeks. He was admitted for multiple falls because of weakness in his legs. He had an MRI of his low back that showed multiple foraminal narrowings and some nerve impingement as well as spinal stenosis. He was seen at neurology office last week but the neurologist was on vacation and a nurse practitioner saw him, stated that they were going to refer him to a spine surgeon for further evaluation of these MRI findings and his symptoms. Today he states he is mainly wanting cleaned out. He is taking no daily stool softeners for constipation. He feels it is hard to bear down and get stool out due to weakness. He does not have weakness in his upper extremities. When asked if he is too weak to get around, he states no, he is able to. He sometimes uses a walker to help. - Past Medical History (1) CVA (cerebral vascular accident) Status: Chronic (2) Atrial arrhythmia Status: Chronic (3) CAD (coronary artery disease) Status: Chronic (4) Diabetes mellitus Status: Chronic (5) History of non-ST elevation myocardial infarction (NSTEMI) Status: Chronic (6) Hyperlipidemia Status: Chronic (7) Hypertension Status: Chronic Past Medical History - Allergies and Home Meds Allergies/Adverse Reactions: Allergies erythromycin base Adverse Reaction (Mild, Verified 11/30/18 09:47) stomach problems Primary Care Physician: Mike Wilhelm MD [Primary Care Provider] - Surgical History: cholecystectomy, coronary bypass surgery Lives: Spouse/ Significant Other Smoking Status: Never smoker - Family History Maternal Family History: Family History (Last Reviewed 02/13/18 @ 10:37 by Baylee Villa) Father Myocardial infarction Mother CVA (cerebral vascular accident) Brother CAD (coronary artery disease) Sister Colon cancer Sister Cancer Sister Heart disease Family History: Reports: Heart Disease Paternal Family History: Family History (Last Reviewed 02/13/18 @ 10:37 by Baylee Villa) Father Myocardial infarction Mother CVA (cerebral vascular accident) Brother CAD (coronary artery disease) Sister Colon cancer Sister Cancer Sister Heart disease Family History: Reports: Stroke Review of Systems General: Denies: Chills, Fever, Sweats Eyes: Denies: Visual changes - bilaterally, Diplopia ENT: Denies: Rhinorrhea, Sore throat Cardiovascular: Denies: Chest pain, Palpitations Respiratory: Denies: Dyspnea, Cough, Dyspnea on exertion Gastrointestinal: Reports: Abdominal pain - feel full, Constipation. Denies: Nausea, Vomiting, Diarrhea, Melena, Hematochezia Genitourinary: Reports: - - no bowel or bladder dysfunction. no saddle anesthesia.. Denies: Dysuria, Hematuria, Frequency Musculoskeletal: Reports: Back pain - intermittent low. Denies: Swelling, Extremity Pain Skin: Denies: Rash, Wounds Neurological: Reports: Weakness - BLE. Denies: Headache, Numbness Physical Exam Vital Signs/Narrative: Vital Signs Temp Pulse Resp BP Pulse Ox 11/30/18 09:44 97.7 F L 58 L 16 140/65 H 100 Inital Vital Signs reviewed: Yes General: Well nourished, Well developed, No Acute Distress Head: Normocephalic, Atraumatic Eyes: Perrl, EOMI ENT: Moist mucous membranes, No rhinorrhea Neck: Supple, Nontender Cardiovascular: Regular rate, Regular rhythm, No murmurs Respiratory: No distress, CTA bilaterally, Chest nontender Abdomen: Soft, Nontender, Nondistended, Normal bowel sounds Back: Nontender, Normal Inspection. Negative for: CVA tenderness Extremities: Nontender, No edema Skin: Normal color, No rash, No Trauma Neurological: Alert, Oriented x3, Cranial nerves II-XII grossly intact, Normal Sensation, Normal DTR, Weakness - 4+/5 RLE; 5/5 throughout other 3 exts. Psychological: Normal affect, Normal Mood Diagnostic/Tx/Re-eval Impressions KUB X-Ray 11/30/18 11:15 IMPRESSION: Moderate amount of fecal material is seen in the colon. Electronically Signed: Israel Acosta, at 12:25 EDT , Service support , 11/30/18 11:15 XRAY Abdomen [Abdomen Single View] [RAD] Stat Laboratory Results 11/30/18 11/30/18 11/30/18 10:27 10:27 11:05 WBC 5.2 RBC 4.34 L Hgb 13.5 Hct 39.9 L MCV 91.9 MCH 31.1 MCHC 33.8 RDW 14.3 RDW Differential 48.3 H Plt Count 187 MPV 9.5 Immature Gran % (Auto) 0.200 Neut % (Auto) 53.2 Lymph % (Auto) 30.5 [place] % (Auto) 13.4 H Eos % (Auto) 1.9 Baso % (Auto) 0.8 Absolute Neuts (auto) 2.8 Absolute Lymphs (auto) 1.59 Total Counted Not Reportable Sodium 137 Potassium 4.0 Chloride 105 Carbon Dioxide 26.0 Anion Gap 6 BUN 8 Creatinine 0.93 Estim Creat Clear Calc 76.11 Est GFR (MDRD) Af Amer 101 Est GFR (MDRD) Non-Af 83 BUN/Creatinine Ratio 8.6 L Glucose 113 H Calcium 8.6 Urine Color Yellow Urine Clarity Clear Urine pH 6.0 Ur Specific [place] 1.015 Urine Protein Negative Urine Glucose (UA) Normal Urine Ketones 15 H Urine Occult Blood Negative Urine Nitrite Negative Urine Bilirubin Negative Urine Urobilinogen Normal Ur Leukocyte Esterase Negative Urine RBC 0 SEEN Urine WBC 0 SEEN Ur Squamous Epith Cells 0-5 SEEN Urine Bacteria 0 SEEN Urine Mucus 0 SEEN - Medical Decision Making Patient was given an enema, he had very little results, we obtained the above KUB after that. It showed significant fecal retention still. He declined another but was amenable to magnesium citrate and stool softeners with follow- up. His work-up here is unremarkable from a medical standpoint, however in looking at his recent MRI that shows spinal stenosis in addition to multiple bilateral foraminal stenosis, his constipation could be neurologically mediated. He does not have any findings or symptoms indicative of cauda equina syndrome. He is to be referred to a spine surgeon and I think that is a reasonable next step in addition to encouraging nutrition. I advised his to get some boost or Ensure shakes, in addition to MiraLAX and Colace, and we discussed maintaini ng hydration especially in the face of magnesium citrate. He meets no admission criteria to the hospital at this time. He went to urinate and had a little more of a bowel movement and felt better with regards to his abdominal fullness. He is comfortable going home at this time. ED Disposition - Plan for ED Patient: Disposition: Home or Assisted Living Diagnosis: Lower extremity weakness, Spinal stenosis of lumbar region, Constipation Instructions: CONSTIPATION (Adult) Prescriptions: Docusate Sodium [Colace] 100 mg PO BID #60 cap Prescription Printed Referrals: Mike Wilhelm MD [Primary Care Provider] - Zelalem Coleman MD [STAFF PHYSICIAN] - As soon as possible (for spine surgery referral) Additional Instructions: After drinking magnesium citrate half bottle today, drink plenty of fluids. If you do not have a good bowel movement afterwards later today, you may repeat in the morning tomorrow. Take MiraLAX 1 capful dissolved in any liquid once daily, in addition to prescribed stool softener.
[2018-11-30] MEDS: 0.9% Normal Saline 1,000 ML 999 ML IV (10:33)
[2018-11-30 10:39] LABS: Absolute Lymphocyte Count 1.59 X10^3/ul (0.83-4.51); Absolute Neutrophil Count 2.8 X10^3/uL (2.0-7.7); Basophil# 0.04 X10^3/uL; Basophil% 0.8 % (0-1); Eosinophils% 1.9 % (0-5); Hematocrit 39.9 % (40-54); Hemoglobin 13.5 g/dl (13.0-16.5); Lymphocyte # 1.59 X10^3/ul (4.0); Lymphocyte % 30.5 % (19-41); Mean Corp Hgb Conc 33.8 g/gl (32-36); Mean Corpuscular Hgb 31.1 pg (27.0-32.0); Mean Corpuscular Volume 91.9 fL (80-94); Mean Platelet Vol. 9.5 fl (6.2-12.0); Monocyte% 13.4 % (0-10); Neutrophil # 2.78 X10^3/uL (2.7-7.7); Neutrophil % 53.2 % (47-70); Platelet Count 187 K/mm3 (150-450); RBC Distribution Width CV 14.3 % (11.6-14.6); RBC Distribution Width SD 48.3 fl (35.1-43.9); Red Blood Count 4.34 M/mm3 (4.6-6.2); White Blood Count 5.2 K/mm3 (4.4-11.0)
[2018-11-30 10:44] LABS: POSITIVE COUNT NO; POSITIVE DIFFERENTIAL NO; POSITIVE MORPHOLOGY NO
[2018-11-30 10:49] LABS: Anion Gap 6 (5-15); BUN 8 mg/dL (7-18); BUN/Creat Ratio 8.6 RATIO (10-20); Calcium,Total 8.6 mg/dL (8.5-10.1); Chloride 105 mmol/L (98-107); Creatinine, Serum 0.93 mg/dL (0.70-1.30); EST Glomerular Filtration Rate 83 mL/min (>60); Est Glom Filt Rate - Afr Amer 101 mL/min (>60); Estimated Creatinine Clearance 76.11 ml/min; Glucose 113 mg/dL (74-106); Sodium Level 137 mmol/L (136-145)
[2018-11-30 11:09] LABS: Bacteria 0 SEEN /hpf (None Seen); Mucous, Urine 0 SEEN /hpf (<or=2+); Red Blood Cells-Urine 0 SEEN /hpf (0-5); White Blood Cells 0 SEEN /hpf (0-5)
--- NOTE | 2018-11-30 11:15 | RAD_ITS ---
STUDY: X-RAY - ABDOMEN/PELVIS REASON FOR EXAM: Male, 78 years old. Constipation. TECHNIQUE: Single AP view of the abdomen / pelvis. COMPARISON: None. FINDINGS: Normal visualized lung bases. There is a moderate amount of colonic fecal material. The visualized liver, spleen and kidneys are grossly normal in size and morphology. Normal soft tissue structures. There are degenerative changes of the visualized lumbar spine. RAD/Abdomen Single View IMPRESSION: Moderate amount of fecal material is seen in the colon. Electronically Signed: Israel Acosta, at 12:25 EDT , Service support ,
[2018-11-30 11:20] LABS: Color, Urine Yellow (Yellow); Glucose, Dipstick Normal (Normal); Ketone-Dipstick 15 mg/dl (Negative); Leukocyte Esterase-Dipstick Negative /ul (Negative); Nitrite-Dipstick Negative (Negative); Occult Blood-Urine Negative /ul (Negative); Protein-Dipstick Negative (Negative); Specific Gravity, Urine 1.015 (1.002-1.030); Urine Bilirubin Dipstick Negative (Negative); Urine Clarity Clear (Clear); Urine Urobilinogen Normal (Normal)
[2018-11-30 11:21] LABS: Squamous Epithelial Cells - UA 0-5 SEEN /hpf (0-5)
[2018-11-30 12:32] VITALS: BP 143/100; PULSE 61; RESP 18; O2SAT 99
[2018-11-30] MEDS: Magnesium Citrate 300 ML 150 ML PO (13:49)
[2018-11-30 13:57] VITALS: BP 151/82; PULSE 78; RESP 15; O2SAT 98
--- NOTE | 2018-11-30 13:59 | ED.RN ---
PT GIVEN WRITTEN AND VERBAL DISCHARGE INSTRUCTIONS AN HOME GOING PAPERWORK. PT VERBALIZES UNDERSTANDING AND DENIES ANY FURTHER QUESTIONS. IV D/C AND COVERED WITH 2X2 GAUZE AND PAPER TAPE.
== END 2018-11-30 13:58 | disposition home or self-care (01) ==
PROVIDERS: Emergency Provider Emergency Medicine; Family Provider Family Medicine; PCP Family Medicine
DX: K59.00 Constipation, unspecified (principal); M48.061 Spinal stenosis, lumbar region without neurogenic claudication; R53.1 Weakness; I25.10 Atherosclerotic heart disease of native coronary artery without angina pectoris; E11.9 Type 2 diabetes mellitus without complications; E78.5 Hyperlipidemia, unspecified; I10 Essential (primary) hypertension; I25.2 Old myocardial infarction; Z86.73 Personal history of transient ischemic attack (TIA), and cerebral infarction without residual deficits; Z79.02 Long term (current) use of antithrombotics/antiplatelets; Z79.82 Long term (current) use of aspirin; Z79.899 Other long term (current) drug therapy
CPT/HCPCS: 74018; 80048; 81001; 85025; 93005; 96360; 99285; J7030; A4216

== ENCOUNTER → 2018-12-26 | Outpatient (CLI) | payer MEDICARE, SELFPAY ==
[2018-11-30 09:44] VITALS: BMI 25.0
[2018-12-26 14:13] LABS: Erythrocyte Sedimentation Rate 5 mm/hr (0-20)
[2018-12-26 14:15] LABS: Hematocrit 39.4 % (40-54); Hemoglobin 13.4 g/dL (13.0-16.5); Mean Corpuscular Hgb 31.7 pg (27.0-32.0); Mean Corpuscular Volume 93.1 fL (80-94); Mean Platelet Vol. 9.8 fl (6.2-12.0); Platelet Count 229 K/mm3 (150-450); RBC Distribution Width CV 13.9 % (11.6-14.6); RBC Distribution Width SD 46.7 fl (35.1-43.9); Red Blood Count 4.23 M/mm3 (4.6-6.2); White Blood Count 7.5 K/mm3 (4.4-11.0)
[2018-12-26 14:31] LABS: ALB/GLOB Ratio 0.9 RATIO (0.9-2.4); AST(SGOT) 21 U/L (15-37); Alanine Aminotransfer ALT/SGPT 22 U/L (16-61); Alkaline Phosphatase 87 U/L (45-117); Anion Gap 7 (5-15); BUN 11 mg/dL (7-18); Calcium,Total 8.9 mg/dL (8.5-10.1); Chloride 105 mmol/L (98-107); Creatinine, Serum 0.92 mg/dL (0.70-1.30); EST Glomerular Filtration Rate 85 mL/min (>60); Est Glom Filt Rate - Afr Amer 102 mL/min (>60); Globulin 3.5 g/dL (2.2-4.2); Glucose 118 mg/dL (74-106); Potassium 4.3 mmol/L (3.5-5.1); Prealbumin 15.4 mg/dL (20.0-40.0); Protein, Total 6.5 g/dL (6.4-8.2); Sodium Level 139 mmol/L (136-145); Thyroid Stim Hormone (TSH) 2.16 uIU/mL (0.358-3.74)
[2018-12-26 14:46] LABS: Vitamin B12 341 pg/mL (211-911); Vitamin D,25 Hydroxy 39.6 ng/mL (29.95-100.01)
== END | disposition home or self-care (01) ==
LOC: MTLAB 13:09
PROVIDERS: Family Provider Family Medicine; PCP Family Medicine; Referring Provider Family Medicine; Visit Provider Family Medicine
DX: R63.4 Abnormal weight loss (principal)
CPT/HCPCS: 36415; 80053; 82306; 82607; 84134; 84443; 85027; 85652

== ENCOUNTER → 2019-04-05 | Outpatient (CLI) | payer MEDICARE, SELFPAY ==
[2019-01-12 09:27] VITALS: BMI 25.0
[2019-04-05 15:11] LABS: Vitamin B12 963 pg/mL (211-911)
== END | disposition home or self-care (01) ==
LOC: MFPLAB 12:25
PROVIDERS: Family Provider Family Medicine; PCP Family Medicine; Referring Provider Family Medicine; Visit Provider Family Medicine
DX: E53.8 Deficiency of other specified B group vitamins (principal)
CPT/HCPCS: 36415; 82607

== ENCOUNTER 2019-09-01 08:01 | Inpatient (IN) | payer MEDICARE, SELFPAY ==
[2019-01-12 09:27] VITALS: BMI 25.0
[2019-09-01] VITALS (35 sets, daily range): BP systolic 90–174; BP diastolic 59–113; PULSE 55–545; RESP 10–20; TEMP 36.6–36.9; O2SAT 96–100; BMI 26.4; BMI 26.1
--- NOTE | 2019-09-01 08:19 | EKG12_ITS ---
Test Reason : Blood Pressure : / mmHG Vent. Rate : 064 BPM Atrial Rate : 064 BPM P-R Int : 198 ms QRS Dur : 106 ms QT Int : 424 ms P-R-T Axes : 035 -09 099 degrees QTc Int : 437 ms Normal sinus rhythm ST & T wave abnormality, consider anterolateral ischemia Abnormal ECG Confirmed by JORDON NAVARRO, NALLELY ([id number]), editor index SARAH FERRARI ([id number]) on 09/03/2019 8:27:28 AM Referred By: ERICK Confirmed By:NALLELY RUVALCABA MD
--- NOTE | 2019-09-01 08:21 | ED.DCSUM_ITS ---
- ER Visit Summary Date of Service: 09/01/19 Chief Complaint: [Chest pain] History of Present Illness: The patient is a 79 M [presents the emergency department complaint chest pain intermittently over the last 10 days. Patient states that he has been eating nitroglycerin like popcorn. Patient states the p ain is similar to what he has had with his cardiac issues and heart attacks. He describes it as a ache kind of comes up from the epigastric region into his left chest. He denies any nausea or vomiting. He denies any shortness of breath. At times the discomfort is related with activity at times it is not. He states that when he takes nitro it seems to help the discomfort but then it comes back. Patient has had significant heart disease history including four- vessel CABG. He has a history of diabetes, hypertension, and high cholesterol. He denies recent travel or surgery. He denies any fever or cough.] Physical Examination: [HEENT-PERRLA, EOMI. Cranial nerves II through XII grossly intact. TMs clear. Mucous membranes moist. No adenopathy. Cardiovascular-regular rate and rhythm without murmur or ectopy Lungs-clear to auscultation, chest wall stable without crepitus or subcu emphysema Abdomen-normoactive bowel sounds, soft, nontender, no rebound or rigidity, no peritoneal signs. Extremities-intact ?4, normal range of motion, normal pulses, atraumatic] Test Results: [EKG obtained on arrival shows sinus rhythm with a ventricular rate of [address] changes noted anteriorly with some ST depression noted. When compared with prior EKG from November [address] depression seems somewhat more pronounced.] CBC with differential obtained showing a 5.5, hemoglobin 14.7, hematocrit 42, platelets 176. Chemistries unremarkable. Troponin was 0.088. Chest x-ray showed nothing acute. Emergency Department Course and Treatment: [Patient had an IV line established and placed on certified novell administrator on arrival. Patient was given aspirin 162 mg p.o. Patient had an inch of Nitropaste placed to the anterior chest wall. Patient's chest pain resolved.] Patient started on a heparin drip as well as a nitro drip Treatment Plan: [Admit for further treatment of his acute coronary syndrome/non- ST elevation GA. Patient tells me that he has been told that there is no further intervention that can be done and he is going to be medical management only.] Prior to patient going up to the floor he started having chest pain once again. His pain was an 8 out of 10. Patient had a repeat EKG which shows that he is having a posterior infarct with ST elevation in aVR as well as worsening of the depression anteriorly in V2, V3, V4, V5, V6, as well as 1 and aVL. Case was discussed with Dr. Gurrola who recommended heparin drip as well as nitro drip. Patient is adamant that he is not a candidate for surgery as he was told he would not be able to tolerate surgery and he was told that he was not a candidate for any type of stenting procedure. Disposition: [Admit] Impression: [Acute coronary syndrome/non-ST elevation GA] Acute ST elevation GA This note was generated with [employer] dictation software. It may contain incorrect words, spelling, and punctuation that were not noted in review of the chart prior to signing ED Disposition - Plan for ED Patient: Disposition: Acute [facility]
[2019-09-01 08:27] LABS: Absolute Lymphocyte Count 1.05 X10^3/uL (0.83-4.51); Absolute Neutrophil Count 3.7 X10^3/uL (2.0-7.7); Basophil# 0.03 X10^3/uL; Basophil% 0.5 % (0-1); Eosinophil# 0.06 X10^3/uL; Eosinophils% 1.1 % (0-5); Hematocrit 42.5 % (40-54); Hemoglobin 14.7 g/dL (13.0-16.5); Lymphocyte # 1.05 X10^3/ul (4.0); Lymphocyte % 19.2 % (19-41); Mean Corp Hgb Conc 34.6 g/dL (32-36); Mean Corpuscular Hgb 31.9 pg (27.0-32.0); Mean Corpuscular Volume 92.2 fL (80-94); Mean Platelet Vol. 9.7 fl (6.2-12.0); Monocyte# 0.66 X10^3/uL; Monocyte% 12.1 % (0-10); NRBC Flagged by Analyzer 0 % (0-5); Neutrophil # 3.65 X10^3/uL (2.7-7.7); Neutrophil % 66.7 % (47-70); Platelet Count 176 K/mm3 (150-450); RBC Distribution Width CV 13.3 % (11.6-14.6); Red Blood Count 4.61 M/mm3 (4.6-6.2); White Blood Count 5.5 K/mm3 (4.4-11.0)
[2019-09-01] MEDS: 0.9% Normal Saline 1,000 ML 150 ML IV (08:29)
[2019-09-01] MEDS: Aspirin 81 MG TAB.CHEW 162 MG PO (08:29)
[2019-09-01] MEDS: Nitroglycerin Oint 1 INCH PACKET TRANSDERM. (08:29)
--- NOTE | 2019-09-01 08:33 | RAD_ITS ---
STUDY: X-RAY CHEST REASON FOR EXAM: Male, 79 years old. CHEST PAIN; -- CABG TECHNIQUE: Frontal view COMPARISON: October 15, 2018 FINDINGS: Stable sternotomy wires. The lungs are clear and expanded. There is no demonstrated pleural abnormality. Normal size heart. Normal mediastinum and lisa. Normal visualized pulmonary arteries. Normal visualized aortic arch and descending thoracic aorta. Degenerative changes of the thoracic spine. Normal visualized ribs, clavicles, and shoulders. There is no demonstrated abnormality of the visualized soft tissue structures of the upper abdomen. RAD/Chest 1 View (Portable) IMPRESSION: Normal x-ray examination of the chest. Electronically Signed: Wilfrido Payne DO at 8:50 EDT Tel [phone], Service support ,
[2019-09-01 08:41] LABS: Anion Gap 5 (5-15); BUN 15 mg/dL (7-18); BUN/Creat Ratio 15.3 RATIO (10-20); Calcium,Total 9.3 mg/dL (8.5-10.1); Chloride 108 mmol/L (98-107); Creatinine, Serum 0.98 mg/dL (0.70-1.30); EST Glomerular Filtration Rate 78 mL/min (>60); Est Glom Filt Rate - Afr Amer 95 mL/min (>60); Estimated Creatinine Clearance 71.06 ml/min; Glucose 112 mg/dL (74-106); Potassium 3.9 mmol/L (3.5-5.1); Sodium Level 139 mmol/L (136-145)
--- NOTE | 2019-09-01 09:16 | NURSING ---
DR HEMAL HI
--- NOTE | 2019-09-01 09:21 | NURSING ---
PCU NSTEMI, ACS HEMAL
--- NOTE | 2019-09-01 10:45 | ED.RN ---
PT C/O INCREASED CP. CALLED FOR EKG
--- NOTE | 2019-09-01 10:58 | NURSING ---
DR TUCKER PAGED RETURNED PAGE
--- NOTE | 2019-09-01 11:03 | NURSING ---
DR HEMAL STEVE
[2019-09-01] MEDS: Nitroglycerin Infusion 250 ML 3 MG CONT INF (11:13)
[2019-09-01] MEDS: Heparin Injection (Vial) 5,000 UNIT/ML VIAL 7500 UNIT IV (11:18)
[2019-09-01] MEDS: HEPARIN/D5w 25,000 UNITS 25,000 UNITS/250 ML IV.SOLN. 14 UNITS IV (11:25)
--- NOTE | 2019-09-01 11:41 | ED.RN ---
pt's , Moriah, called in for an update. pt gave verbal permission to disclose medical information, treatment and diagnosis with his . she was informed of his current condition and that he was getting admitted to our facility. she would like to be called when he gets to the floor. her cell phone number is [phone] and her home phone is [phone]
--- NOTE | 2019-09-01 11:50 | ED.RN ---
nitro patch d/c prior to starting nitro drip.
--- NOTE | 2019-09-01 11:56 | PCM.HP.STD ---
Problem List (1) STEMI (ST elevation myocardial infarction) Status: Acute (2) Essential hypertension Status: Chronic (3) CVA (cerebral vascular accident) Status: Chronic (4) CAD (coronary artery disease) Status: Chronic (5) Sinus bradycardia Status: Chronic (6) Atrial arrhythmia Status: Chronic (7) History of non-ST elevation myocardial infarction (NSTEMI) Status: Chronic (8) Atherosclerosis of coronary artery of [place] heart without angina pectoris Status: Chronic Qualifiers: Comment: CABG x4- TAVAREZ to LAD, reverse SVG to CX, SVG to 2 branches on right (9) Hyperlipidemia Status: Chronic Qualifiers: (10) Postsurgical aortocoronary bypass status Status: Chronic Comment: CABG x4- TAVAREZ to LAD, reverse SVG to CX, SVG to 2 branches on right (11) Diabetes mellitus Status: Chronic History of Present Illness Date of Admission: 09/01/19 Chief Complaint: chest pain for 10 days The patient is a 79 year old M with multiple comorbidities including coronary artery status post four-vessel CABG and and CVA came to ER with chest pain ongoing for 10 days. Initially the chest pain was intermittent, on exertion without associated shortness of breath, near syncope or syncope but today he woke up with chest pain at rest. He has been taking several nitro sublingual but chest pain did not get relief. While in the ED, chest pain worsened, left-sided, 8/10 intensity without radiation without associated shortness of breath, near-syncope or syncope even on nitroglycerin ointment. [] In ED, first EKG at about 8 AM shows normal sinus rhythm at [address]-T changes. Second EKG at 10:52 AM when he had severe chest pain showed ST elevation 1 mm in aVR and ST depression with T wave inversion about 2 mm V2 to V6 and slight depression in 1 and aVL. In view of dynamic EKG change and ST elevation CA, clinic lead was called and patient was started on IV heparin drip and is a glycerin drip. Patient is not a candidate for PCI or cardiac cath as per last cardiac cath experience, patient is on medical management. Of note, patient was told by [facility] clinic lead that coronary arteries are not amenable to PCI As per cardiac cath in 10/2010 in some [facility], he has severe triple-vessel coronary artery disease, severe left main, occluded mid LAD, 75% stenosis in proximal left circumflex, occluded distal first OM, patent TAVAREZ to first diagonal and sequentially to LAD, 75% stenosis of saphenous to first obtuse marginal, 9099% stenosis of SVG to RCA and collateral from distal LAD to distal PDA Past Medical History Past Medical History (Chronic Problems): Chronic Problems (Last Reviewed 01/12/19 @ 09:39 by Vanita Cohen) Essential hypertension (Chronic) CVA (cerebral vascular accident) (Chronic) CAD (coronary artery disease) (Chronic) Sinus bradycardia (Chronic) Atrial arrhythmia (Chronic) History of non-ST elevation myocardial infarction (NSTEMI) (Chronic) Atherosclerosis of coronary artery of [place] heart without angina pectoris (Chronic) CABG x4- TAVAREZ to LAD, reverse SVG to CX, SVG to 2 branches on right Hyperlipidemia (Chronic) Postsurgical aortocoronary bypass status (Chronic ~04/18/00) CABG x4- TAVAREZ to LAD, reverse SVG to CX, SVG to 2 branches on right Diabetes mellitus (Chronic) Medical History: Medical History (Last Reviewed 01/12/19 @ 09:39 by Vanita Cohen) Essential hypertension (Chronic) I10 Sinus bradycardia (Chronic) R00.1 Atrial arrhythmia (Chronic) I49.8 History of non-ST elevation myocardial infarction (NSTEMI) (Chronic) I25.2 Atherosclerosis of coronary artery of [place] heart without angina pectoris (Chronic) I25.10 CABG x4- TAVAREZ to LAD, reverse SVG to CX, SVG to 2 branches on right Hyperlipidemia (Chronic) E78.5 Diabetes mellitus (Chronic) E11.9 History of hiatal hernia Z87.19 RITCHIE (obstructive sleep apnea) G47.33 Allergies erythromycin base Adverse Reaction (Mild, Verified 09/01/19 08:09) stomach problems Home Medications: Ambulatory Orders Medication Instructions Recorded Aspirin [[place] Aspirin] 81 mg PO DAILY 09/18/13 isosorbide mononitrate 60 mg 60 mg PO DAILY #90 tab 02/01/19 tablet,extended release 24 hr nitroglycerin 0.4 mg sublingual See Rx Instructions .ROUTE 06/15/19 tablet .COMPLEX #100 tab clopidogrel 75 mg tablet 75 mg PO DAILY #90 tab 07/04/19 ranolazine 500 mg tablet,extended 500 mg PO DAILY #90 tab 02/12/20 release,12 hr carvedilol 6.25 mg tablet 6.25 mg PO QHS #90 tab 08/09/19 lisinopril 2.5 mg tablet See Rx Instructions .ROUTE 08/22/19 .COMPLEX #90 tab omeprazole 40 mg capsule,delayed 40 mg PO DAILY 08/27/19 release Surgical History: Surgical History (Last Reviewed 01/12/19 @ 09:38 by Vanita Cohen) Postsurgical aortocoronary bypass status (Chronic) Onset Date: ~04/18/00 Z95.1 CABG x4- TAVAREZ to LAD, reverse SVG to CX, SVG to 2 branches on right History of cardiac radiofrequency ablation Onset Date: ~1991 Z98.890 History of cardiac catheterization Z98.890 03/2000, 04/2002,06/2007,08/2013 History of cholecystectomy Z90.49 History of cholecystectomy Z90.49 Surgical History: cholecystectomy, coronary bypass surgery Psychiatric History: No pertinent psych hx Smoking Status: Never smoker - *Family History Maternal Family History: Family History (Last Reviewed 01/11/19 @ 15:56 by Vanita Cohen) Father Myocardial infarction Mother CVA (cerebral vascular accident) Brother CAD (coronary artery disease) Sister Colon cancer Sister Cancer Sister Heart disease History Items: Heart Disease Paternal Family History: Family History (Last Reviewed 01/11/19 @ 15:56 by Vanita Cohen) Father Myocardial infarction Mother CVA (cerebral vascular accident) Brother CAD (coronary artery disease) Sister Colon cancer Sister Cancer Sister Heart disease History Items: Stroke Review of Systems Constitutional: Denies: Chills, Fever, Weight Change HEENT: Denies: Head Aches, Sinus Congestion, Sinus Drainage Cardiovascular: Reports: Chest Pain, Chest Pressure. Denies: Palpitations Respiratory: Denies: Cough, Shortness of breath at rest, Sputum production Gastrointestinal: Reports: Constipation. Denies: Abdominal Pain, Nausea, Vomiting Genitourinary: Denies: Dysuria Musculoskeletal: Reports: Joint Pain - Left chronic knee pain, Joint stiffness. Denies: Joint Tenderness Skin: Denies: Rash, Wounds Neurological: Reports: Balance problems, Tremor. Denies: Focal weakness, Numbness, Tingling Psychiatric: Denies: Anxiety, Depression, Homicidal Ideations, Suicidal Ideations Hematologic/ Lymphatic: Denies: Easy Bruising, Easy Bleeding VTE Information - Inpt Only VTE Present on Admission: No VTE Mechan Device Prophylaxis: None VTE Pharm Prophylaxis ordered?: No Reason prophylaxis not ordered:: Procedure Not Indicated - Patient already on IV heparin drip Patient Problems: Active and Suspected Problems (Last Reviewed 01/12/19 @ 09:39 by Vanita Cohen) STEMI (ST elevation myocardial infarction) (Acute) - Physical Exam Vitals/I&O's: Vital Signs Temp Pulse Resp BP Pulse Ox 97.9 F 83 17 153/113 H 100 09/01/19 09:26 09/01/19 11:29 09/01/19 11:29 09/01/19 11:29 09/01/19 11:29 Oxygen Delivery Method Room Air Weight: 205 lb 11.06 oz Body Mass Index (BMI) 26.4 General: Alert, Oriented x3, Cooperative HEENT: Atraumatic, PERRLA, EOMI, Normocephalic Neck: Supple, No JVD, Negative Carotid Bruits Lungs: Clear to auscultation, Normal air movement, No rhonchi, No wheeze, No rales Cardiovascular: Regular rate, Regular Rhythm, Normal S1, Normal S2, Murmur - Systolic murmur present over left lower sternal border and cardiac apex. Abdomen: Bowel Sounds Present, Soft, Non Tender, Non-Distended Extremities: Capillary Refill Less than 3 Seconds, Edema Skin: No rashes, No breakdown Musculoskeletal: No Tenderness to Palpation of Joints or Extremities, Arthritic Changes Neurological: Cranial nerves II-XII grossly intact, Deep Tendon Reflexes 2+/4 and Symmetrical, Neuro grossly intact Psych/Mental Status: Normal Affect, Appropriate Laboratory Results 09/01/19 08:15: WBC 5.5, RBC 4.61, Hgb 14.7, Hct 42.5, MCV 92.2, MCH 31.9, MCHC 34.6, RDW Std Deviation 45.0 H, RDW Coeff of Ronal 13.3, Plt Count 176, MPV 9.7, Immature Gran % (Auto) 0.400, Neut % (Auto) 66.7, Lymph % (Auto) 19.2, [place] % (Auto) 12.1 H, Eos % (Auto) 1.1, Baso % (Auto) 0.5, Absolute Neuts (auto) 3.7, Absolute Lymphs (auto) 1.05, Nucleated RBC % 0 09/01/19 08:15: Sodium 139, Potassium 3.9, Chloride 108 H, Carbon Dioxide 26.0, Anion Gap 5, BUN 15, Creatinine 0.98, Estim Creat Clear Calc 71.06, Est GFR (MDRD) Af Amer 95, Est GFR (MDRD) Non-Af 78, BUN/Creatinine Ratio 15.3, Glucose 112 H, Calcium 9.3, Troponin I 0.088 H Current Medications Aspirin (Aspirin, Baby) 81 mg PO DAILY@0800 [facility] Carvedilol (Coreg) 6.25 mg PO QHS [facility] Clopidogrel Bisulfate (Plavix) 75 mg PO DAILY [facility] Heparin Sodium (Porcine) (Heparin Na) 0 unit IV UD PRN; Protocol Sodium Chloride () 1,000 mls @ 150 mls/hr IV .[id number] [facility] Last Admin: 09/01/19 08:29 Dose: 150 mls/hr Documented by: Heparin Sodium/Dextrose () 25,000 units in 250 mls @ 14 mls/hr IV .[id number] [facility]; Protocol Last Admin: 09/01/19 11:25 Dose: 1,400 units/hr, 14 mls/hr Documented by: Nitroglycerin/Dextrose () 250 mls @ 3 mls/hr CONT INF .[id number] [facility]; Protocol Last Admin: 09/01/19 11:13 Dose: 5 mcg/min, 3 mls/hr Documented by: Isosorbide Mononitrate (Imdur) 60 mg PO DAILY [facility] Lisinopril (Zestril) 0 mg PO .COMPLEX [facility] Pantoprazole Sodium (Protonix) 40 mg PO DAILY [facility] Ranolazine (Ranexa) 500 mg PO BID [facility] Assessment/Plan All Active Problems (Last Reviewed 01/12/19 @ 09:39 by Vanita Cohen) STEMI (ST elevation myocardial infarction) (Acute) The patient is a 79 year old M with multiple comorbidities including coronary artery status post four-vessel CABG and and CVA came to ER with chest pain ongoing for 10 days. While in the ED, chest pain worsened, and found to be posterior wall STEMI with reciprocal change in anterior lateral leads. 1. Posterior wall STEMI with reciprocal changes in anterior lateral leads: Patient is being admitted in the stepdown unit to prevent from COVID 19 infection also not a candidate for PCI. On IV heparin drip and nitro drip. Currently on aspirin, Plavix, carvedilol 6.25 mg nightly, lisinopril 2.5 mg daily and morphine. Hand [employer] Repairer neurologist is consulted for medical management. First EKG at about 8 AM shows normal sinus rhythm at [address]-T changes. Second EKG at 10:52 AM when he had severe chest pain showed ST elevation 1 mm in aVR and ST depression with T wave inversion about 2 mm V2 to V6 and slight depression in 1 and aVL 2D echo ordered. 2. Coronary artery disease status post four-vessel CABG not amenable to PCI and chronic mild HFpEF: As per echo in November 18, EF 55%. Echo in October 2018 Left ventricular systolic function is normal. The estimated ejection fraction is 55 %. Post operative septal motion. Mild concentric left ventricular hypertrophy. The left atrium is mildly enlarged. Mild (1+) eccentric mitral valve insufficiency. Mild tricuspid valve insufficiency. Trivial aortic valve insufficiency. Transmitral diastolic flow velocities suggest diastolic dysfunction (pseudonormal pattern). Cardiac cath in 10/2010 in [facility], he has severe triple-vessel coronary artery disease, severe left main, occluded mid LAD, 75% stenosis in proximal left circumflex, occluded distal first OM, patent TAVAREZ to first diagonal and sequentially to LAD, 75% stenosis of saphenous to first obtuse marginal, 9099% stenosis of SVG to RCA and collateral from distal LAD to distal PDA Medical management as mentioned above 3. Arrhythmia: History of atrial arrhythmia/sinus bradycardia: Currently on normal sinus rhythm. 4. Diabetes mellitus type 2: Accu-Chek essentials cover with Humalog sliding scale 5. Hypertension, dyslipidemia and history of CVA: Home medication reconciliation done. DVT prophylaxis: On IV heparin drip. Living will/advanced directive/end of life care: Patient does not have living will or advanced directive. After discussion of procedures involved with full code, DNR CC arrest and DNR CC, the patient opted for DNR-CC Arrest Patient does not want artificial life support including intubation, tube feed, ventilator and/chest compression, central venous catheter, vasopressor and DC shock if needed DNR CC arrest. Total time spent in [id number] encounter in discussion of advanced directive 16 minutes. Inpatient E&M: 03429 Init Hosp L3 Procedures: 16138 Advncd Care Plan 30 Min
--- NOTE | 2019-09-01 12:08 | EKG12_ITS ---
Test Reason : Blood Pressure : / mmHG Vent. Rate : 081 BPM Atrial Rate : 081 BPM P-R Int : 226 ms QRS Dur : 092 ms QT Int : 332 ms P-R-T Axes : 062 -21 214 degrees QTc Int : 385 ms Sinus rhythm with 1st degree A-V block with Premature atrial complexes Marked ST abnormality, possible anteroseptal subendocardial injury Abnormal ECG Confirmed by JORDON NAVARRO, NALLELY ([id number]), newspaper editor SARAH FERRARI ([id number]) on 09/03/2019 8:27:44 AM Referred By: JASIEL Confirmed By:NALLELY RUVALCABA MD
[2019-09-01 12:30] LABS: Magnesium 1.9 mg/dL (1.6-2.6)
[2019-09-01 12:43] LABS: BNP,B-Type NATRIURETIC PEPTIDE 33.5 pg/mL (0-100)
[2019-09-01] MEDS: Pantoprazole Sodium 40 MG Tablet PO (13:14)
[2019-09-01] MEDS: Clopidogrel Bisulfate 75 MG Tablet PO (13:15)
[2019-09-01] MEDS: 0.9% Normal Saline 1,000 ML 50 ML IV (13:15)
[2019-09-01 13:46] LABS: Bedside Glucose 138 mg/dL (70-110)
[2019-09-01] MEDS: Ranolazine 500 MG Tablet PO ×2 (13:51→22:13)
[2019-09-01] MEDS: Lisinopril 2.5 MG Tablet PO (13:52)
[2019-09-01 14:41] LABS: International Normalized Ratio 1.3; Prothrombin Time (Protime)PT. 16.1 SECONDS (11.7-14.9)
[2019-09-01 15:17] LABS: Partial Thromboplast Time > 250.0 Seconds (24.1-36.2)
[2019-09-01] MEDS: Morphine 2 MG/ML Syringe IV (16:13)
[2019-09-01] MEDS: Carvedilol 6.25 MG Tablet PO (16:17)
[2019-09-01 16:35] LABS: Bedside Glucose 125 mg/dL (70-110)
--- NOTE | 2019-09-01 17:05 | NURSING ---
Dr. Swain called back wants patient to be transferred to icu for increase in nitro gtt. called ICU nurse Yin and gave report called and gave update
[2019-09-01] MEDS: oxyCODONE 5 MG Tablet PO (20:09)
[2019-09-01] MEDS: proCHLORPERazine 10 MG/2 ML Vial 5 MG IV (22:11)
[2019-09-01] MEDS: Insulin Lispro 100 UNIT/ML INSULN.PEN SC (22:12)
[2019-09-01 22:59] LABS: Partial Thromboplast Time > 250.0 Seconds (24.1-36.2)
[2019-09-01 23:56] LABS: Bedside Glucose 158 mg/dL (70-110)
[2019-09-02] VITALS (23 sets, daily range): BP systolic 94–153; BP diastolic 44–95; PULSE 57–77; RESP 8–18; TEMP 36.4–37.1; O2SAT 96–100
[2019-09-02 05:34] LABS: Partial Thromboplast Time 97.9 Seconds (24.1-36.2)
[2019-09-02] MEDS: Nitroglycerin Infusion 250 ML 20 MG CONT INF (06:20)
[2019-09-02 06:30] LABS: Bedside Glucose 118 mg/dL (70-110)
[2019-09-02 06:57] LABS: Hematocrit 36.8 % (40-54); Hemoglobin 12.4 g/dL (13.0-16.5); Mean Corp Hgb Conc 33.7 g/dL (32-36); Mean Corpuscular Hgb 31.3 pg (27.0-32.0); Mean Corpuscular Volume 92.9 fL (80-94); Mean Platelet Vol. 9.9 fl (6.2-12.0); Platelet Count 149 K/mm3 (150-450); RBC Distribution Width CV 13.2 % (11.6-14.6); Red Blood Count 3.96 M/mm3 (4.6-6.2)
[2019-09-02 07:18] LABS: Thyroid Stim Hormone (TSH) 1.47 uIU/mL (0.358-3.74)
--- NOTE | 2019-09-02 08:13 | PN_ITS ---
Patient Problems: Active and Suspected Problems (Last Reviewed 01/12/19 @ 09:39 by Vanita Cohen) STEMI (ST elevation myocardial infarction) (Acute) Reason for Visit: Follow-up for non-STEMI Objective: Patient complain of chest pain last evening and nitro drip was maxed to 20 for PCU therefore was transferred to ICU. Here in the ICU, patient was on maximum 30 mcg when patient complained of chest pain. At 3 AM he was given oxycodone and his chest pain got better. Currently nitro drip at 15 is being tapered down. Cardiac monitors reviewed. Sinus rhythm with PVCs. His blood pressure temporarily dropped to 96/62 on nitro drip but has recovered now. The most recent 111/64. Vitals/I&O's: Vital Signs Temp Pulse Resp BP Pulse Ox 97.6 F L 65 14 111/64 98 09/02/19 06:00 09/02/19 07:21 09/02/19 07:00 09/02/19 07:00 09/02/19 07:00 Oxygen Flow Rate (L/min) 2 Oxygen Delivery Method Nasal Cannula Weight: 203 lb 14.841 oz Body Mass Index (BMI) 26.1 Intake and Output for Last 24 Hours 08/31/19 09/01/19 09/02/19 23:59 23:59 23:59 Intake Total 1257.93 / 1755.93 884.06 / 884.06 Balance 1257.93 / 1755.93 884.06 / 884.06 General: Alert, Oriented x3, Cooperative HEENT: Atraumatic, PERRLA, EOMI, Normocephalic Neck: Supple, No JVD, Negative Carotid Bruits Lungs: Clear to auscultation, No rhonchi, No wheeze, No rales, Diminished Cardiovascular: Regular rate, Regular Rhythm, Normal S1, Normal S2, Murmur Abdomen: Bowel Sounds Present, Soft, Non Tender, Non-Distended Extremities: Capillary Refill Less than 3 Seconds, Edema - Slight edema. Skin: No rashes, No breakdown Musculoskeletal: No Tenderness to Palpation of Joints or Extremities, Arthritic Changes Neurological: Cranial nerves II-XII grossly intact, Deep Tendon Reflexes 2+/4 and Symmetrical, Neuro grossly intact Psych/Mental Status: Normal Affect, Appropriate Laboratory Results 09/01/19 08:15: WBC 5.5, RBC 4.61, Hgb 14.7, Hct 42.5, MCV 92.2, MCH 31.9, MCHC 34.6, RDW Std Deviation 45.0 H, RDW Coeff of Ronal 13.3, Plt Count 176, MPV 9.7, Immature Gran % (Auto) 0.400, Neut % (Auto) 66.7, Lymph % (Auto) 19.2, [place] % (Auto) 12.1 H, Eos % (Auto) 1.1, Baso % (Auto) 0.5, Absolute Neuts (auto) 3.7, Absolute Lymphs (auto) 1.05, Nucleated RBC % 0 09/01/19 08:15: Sodium 139, Potassium 3.9, Chloride 108 H, Carbon Dioxide 26.0, Anion Gap 5, BUN 15, Creatinine 0.98, Estim Creat Clear Calc 71.06, Est GFR (MDRD) Af Amer 95, Est GFR (MDRD) Non-Af 78, BUN/Creatinine Ratio 15.3, Glucose 112 H, Calcium 9.3, Troponin I 0.088 H 09/01/19 08:15: B-Natriuretic Peptide 33.5 09/01/19 08:15: Magnesium 1.9 09/01/19 13:20: POC Glucose 138 H 09/01/19 14:04: Troponin I 1.840 H* 09/01/19 14:04: PT 16.1 H, INR 1.3, APTT > 250.0 H* 09/01/19 16:27: POC Glucose 125 H 09/01/19 17:16: Troponin I 7.050 H* 09/01/19 21:45: APTT > 250.0 H* 09/01/19 22:08: POC Glucose 158 H 09/02/19 05:00: APTT 97.9 H* 09/02/19 06:16: POC Glucose 118 H 09/02/19 06:48: WBC 6.0, RBC 3.96 L, Hgb 12.4 L, Hct 36.8 L, MCV 92.9, MCH 31.3, MCHC 33.7, RDW Std Deviation 45.0 H, RDW Coeff of Ronal 13.2, Plt Count 149 L, MPV 9.9 09/02/19 06:48: TSH 1.47 09/02/19 06:50: Sodium Pending, Potassium Pending, Chloride Pending, Carbon Dioxide Pending, Anion Gap Pending, BUN Pending, Creatinine Pending, Est GFR (MDRD) Af Amer Pending, Est GFR (MDRD) Non-Af Pending, BUN/Creatinine Ratio Pending, Glucose Pending, Calcium Pending, Troponin I Pending Current Medications Acetaminophen (Tylenol) 650 mg PO Q6H PRN PRN PRN Reason: Pain Score 1-10/Temp > 100.7 F Al Hydroxide/Mg Hydroxide (Mylanta Ii) 30 ml PO Q6H PRN PRN PRN Reason: Gastric Burning Albuterol Sulfate (Ventolin Aerosols) 2.5 mg INHALATION Q2H PRN PRN PRN Reason: SOB/Wheezing Aspirin (Aspirin, Baby) 81 mg PO DAILY@0800 [facility] Carvedilol (Coreg) 6.25 mg PO BID [facility] Last Admin: 09/01/19 21:49 Dose: Not Given Documented by: Clopidogrel Bisulfate (Plavix) 75 mg PO DAILY [facility] Last Admin: 09/01/19 13:15 Dose: 75 mg Documented by: Dextrose (D50w Syringe) 0 gm IV X1 PRN; Protocol PRN Reason: Hypoglycemia Glucagon () 1 mg IM .X1 PRN PRN Reason: Hypoglycemia Heparin Sodium (Porcine) (Heparin Na) 0 unit IV UD PRN; Protocol Heparin Sodium/Dextrose () 25,000 units in 250 mls @ 14 mls/hr IV .[id number] [facility]; Protocol Last Infusion: 09/02/19 06:45 Dose: 600 units/hr, 6 mls/hr Documented by: Nitroglycerin/Dextrose () 250 mls @ 3 mls/hr CONT INF .[id number] [facility]; Protocol Last Titration: 09/02/19 07:00 Dose: 33.33 mcg/min, 20 mls/hr Documented by: Sodium Chloride () 1,000 mls @ 50 mls/hr IV .Q20H [facility] Last Infusion: 09/01/19 17:42 Dose: 50 mls/hr Documented by: Ibuprofen (Motrin) 400 mg PO Q8H PRN PRN PRN Reason: chest pain Insulin Human Lispro (Humalog Kwikpen (Bkc)) 0 unit SC ACHS [facility]; Protocol Last Admin: 09/02/19 06:18 Dose: Not Given Documented by: Lisinopril (Zestril) 2.5 mg PO QHS [facility] Last Admin: 09/01/19 13:52 Dose: 2.5 mg Documented by: Morphine Sulfate () 2 mg IV Q3H PRN PRN PRN Reason: Pain Score 6-10/10 Last Admin: 09/01/19 16:13 Dose: 2 mg Documented by: Oxycodone HCl (Oxyir) 5 mg PO Q4H PRN PRN PRN Reason: Pain Score 4-5/10 Last Admin: 09/01/19 20:09 Dose: 5 mg Documented by: Pantoprazole Sodium (Protonix) 40 mg PO DAILY [facility] Last Admin: 09/01/19 13:14 Dose: 40 mg Documented by: Prochlorperazine Edisylate (Compazine Iv) 5 mg IV Q4H PRN PRN PRN Reason: Breakthrough nausea/vomiting Last Admin: 09/01/19 22:11 Dose: 5 mg Documented by: Ranolazine (Ranexa) 500 mg PO BID [facility] Last Admin: 09/01/19 22:13 Dose: 500 mg Documented by: Senna/Docusate Sodium (Senokot-S, Melinda-Colace) 2 tablet PO BID PRN PRN PRN Reason: Constipation Sodium Chloride () 10 - 40 ml IV UD PRN PRN Reason: SALINE FLUSH STROKE Vital Signs/Narrative: Vital Signs Temp Pulse Resp BP BP Pulse Ox 09/02/19 07:21 65 09/02/19 07:00 66 14 111/64 98 09/02/19 06:00 97.6 F L 65 13 96/62 96/62 99 09/02/19 05:00 97.9 F 66 10 L 104/67 98 Medical Necessity - Tobacco Use Smoking Status: Never smoker Assessment/Plan All Active Problems (Last Reviewed 01/12/19 @ 09:39 by Vanita Cohen) STEMI (ST elevation myocardial infarction) (Acute) The patient is a 79 year old M with multiple comorbidities including coronary artery status post four-vessel CABG and and CVA came to ER with chest pain ongoing for 10 days. While in the ED, chest pain worsened, and found to be posterior wall STEMI with reciprocal change in anterior lateral leads. 1. Diffuse multivessel non-STEMI, septal anterior lateral wall: Patient is being admitted in the stepdown unit to prevent from COVID 19 infection also not a candidate for PCI. On IV heparin drip and nitro drip. Currently on aspirin, Plavix, carvedilol 6.25 mg nightly, lisinopril 2.5 mg daily and morphine. Automotive Glass Technician Dr. Collazo is consulted for medical management. First EKG at about 8 AM shows normal sinus rhythm at [address]-T changes. Second EKG at 10:52 AM when he had severe chest pain showed ST elevation 1 mm in aVR and ST depression with T wave inversion about 2 mm V2 to V6 and slight depression in 1 and aVL 09/02/2019: Discussed with the client experience consultant. On nitroglycerin tapered. We feel patient might have musculoskeletal component of chest pain to as he was cutting down the [place] day before and oxycodone did relieve the pain. Started on Motrin 400 mg every 8 hourly as needed for chest pain with instruction to give 4 hours after or 8 hours before aspirin administration to avoid drug drug NSAID interaction. Discussed with the nursing staff. Change IV heparin drip to Lovenox therapeutic dose 1 mg/kg body weight subcu. Troponin maximum TO 7.0. TSH 1.47. With recent protocol of coronavirus pandemic with minimal exposure, 2D echo is canceled as he recently had echo in October 2018 and won't make difference in management protocol. Serial troponin increased last 11.1. Lipid profile pending. 2. Coronary artery disease status post four-vessel CABG not amenable to PCI and chronic mild HFpEF: As per echo in November 18, EF 55%. Echo in October 2018 Left ventricular systolic function is normal. The estimated ejection fraction is 55 %. Post operative septal motion. Mild concentric left ventricular hypertrophy. The left atrium is mildly enlarged. Mild (1+) eccentric mitral valve insufficiency. Mild tricuspid valve insufficiency. Trivial aortic valve insufficiency. Transmitral diastolic flow velocities suggest diastolic dysfunction (pseudonormal pattern). Cardiac cath in 10/2010 in [facility], he has severe triple-vessel coronary artery disease, severe left main, occluded mid LAD, 75% stenosis in proximal left circumflex, occluded distal first OM, patent TAVAREZ to first diagonal and sequentially to LAD, 75% stenosis of saphenous to first obtuse marginal, 9099% stenosis of SVG to RCA and collateral from distal LAD to distal PDA Medical management as mentioned above 3. Arrhythmia: History of atrial arrhythmia/sinus bradycardia: Currently on normal sinus rhythm. 4. Diabetes mellitus type 2: Accu-Chek essentials cover with Humalog sliding scale 5. Hypertension, dyslipidemia and history of CVA: Home medication reconciliation done. DVT prophylaxis: Lovenox subcu. Living will/advanced directive/end of life care: Patient does not have living will or advanced directive. After discussion of procedures involved with full code, DNR CC arrest and DNR CC, the patient opted for DNR-CC Arrest Patient does not want artificial life support including intubation, tube feed, ventilator and/chest compression, central venous catheter, vasopressor and DC shock if needed DNR CC arrest. Total time spent in [id number] encounter in discussion of advanced directive 16 minutes. Inpatient E&M: [id number] [facility] L3
[2019-09-02 08:29] LABS: Anion Gap 7 (5-15); BUN 13 mg/dL (7-18); BUN/Creat Ratio 16.5 RATIO (10-20); Calcium,Total 8.3 mg/dL (8.5-10.1); Chloride 111 mmol/L (98-107); Creatinine, Serum 0.79 mg/dL (0.70-1.30); EST Glomerular Filtration Rate 101 mL/min (>60); Est Glom Filt Rate - Afr Amer 122 mL/min (>60); Estimated Creatinine Clearance 69.64 ml/min; Glucose 104 mg/dL (74-106); Potassium 3.7 mmol/L (3.5-5.1); Sodium Level 138 mmol/L (136-145)
[2019-09-02 08:41] LABS: Cholesterol 146 mg/dL (200); High Density Lipoprotein 30 mg/dL; Triglycerides 97 mg/dL; Very Low Density Lipoprotein 19 mg/dL (5-40)
[2019-09-02] MEDS: Clopidogrel Bisulfate 75 MG Tablet PO (08:47)
[2019-09-02] MEDS: Aspirin 81 MG TAB.CHEW PO (08:48)
[2019-09-02] MEDS: Pantoprazole Sodium 40 MG Tablet PO (08:48)
[2019-09-02] MEDS: Ranolazine 500 MG Tablet PO ×2 (08:48→21:48)
[2019-09-02] MEDS: Carvedilol 6.25 MG Tablet PO ×2 (08:51→21:51)
[2019-09-02] MEDS: Nitroglycerin Infusion 250 ML 6 MG CONT INF (08:53)
[2019-09-02] MEDS: 0.9% Saline Lock 10 ML Syringe IV ×2 (09:06→09:15)
--- NOTE | 2019-09-02 09:31 | CON.PCM_ITS ---
Reason for Consult Date of Consultation: 09/02/19 Reason for Consultation: Chest discomfort History of Present Illness: The patient is a 79 year old M who presents to the emergency department complaint chest pain intermittently over the last 10 days. Patient states that he has been eating nitroglycerin like popcorn. Patient states the pain is similar to what he has had with his cardiac issues and heart attacks. He describes it as a ache kind of comes up from the epigastric region into his left chest. He denies any nausea or vomiting. He denies any shortness of breath. At times the discomfort is related with activity at times it is not. He states that when he takes nitro it seems to help the discomfort but then it comes back. Patient has had significant heart disease history including four-vessel CABG. He has a history of diabetes, hypertension, and high cholesterol. He denies recent travel or surgery. He denies any fever or cough. In the emergency room he was noted to have EKG changes with significant lateral ST depression. Troponin was also noted to be mildly elevated. He was initially placed on a heparin drip as well as a nitroglycerin drip and transferred to the progressive care unit and subsequently to the intensive care unit as he continued to have chest discomfort. This morning his chest discomfort appears to have dissipated. His cardiac enzymes have been elevated but he seems to be doing well. His EKG changes have improved.] Past Medical History Allergies/Adverse Reactions: Allergies erythromycin base Adverse Reaction (Mild, Verified 09/01/19 08:09) stomach problems Home Medications: Ambulatory Orders Medication Instructions Recorded Aspirin [[place] Aspirin] 81 mg PO DAILY 09/18/13 isosorbide mononitrate 60 mg 60 mg PO DAILY #90 tab 02/01/19 tablet,extended release 24 hr nitroglycerin 0.4 mg sublingual See Rx Instructions .ROUTE 06/15/19 tablet .COMPLEX #100 tab clopidogrel 75 mg tablet 75 mg PO DAILY #90 tab 07/04/19 ranolazine 500 mg tablet,extended 500 mg PO DAILY #90 tab 07/04/19 release,12 hr carvedilol 6.25 mg tablet 6.25 mg PO QHS #90 tab 08/09/19 omeprazole 40 mg capsule,delayed 40 mg PO DAILY 08/27/19 release Lisinopril [Zestril] 2.5 mg PO QHS 04/11/20 Past Medical History (Chronic Problems): Chronic Problems (Last Reviewed 01/12/19 @ 09:39 by Vanita Cohen) Essential hypertension (Chronic) CVA (cerebral vascular accident) (Chronic) CAD (coronary artery disease) (Chronic) Sinus bradycardia (Chronic) Atrial arrhythmia (Chronic) History of non-ST elevation myocardial infarction (NSTEMI) (Chronic) Atherosclerosis of coronary artery of [place] heart without angina pectoris (Chronic) CABG x4- TAVAREZ to LAD, reverse SVG to CX, SVG to 2 branches on right Hyperlipidemia (Chronic) Postsurgical aortocoronary bypass status (Chronic ~04/18/00) CABG x4- TAVAREZ to LAD, reverse SVG to CX, SVG to 2 branches on right Diabetes mellitus (Chronic) Surgical History: cholecystectomy, coronary bypass surgery Psychiatric History: No pertinent psych hx - *Family History Maternal Family History: Family History (Last Reviewed 01/11/19 @ 15:56 by Vanita Cohen) Father Myocardial infarction Mother CVA (cerebral vascular accident) Brother CAD (coronary artery disease) Sister Colon cancer Sister Cancer Sister Heart disease History Items: Heart Disease Paternal Family History: Family History (Last Reviewed 01/11/19 @ 15:56 by Vanita Cohen) Father Myocardial infarction Mother CVA (cerebral vascular accident) Brother CAD (coronary artery disease) Sister Colon cancer Sister Cancer Sister Heart disease History Items: Stroke Smoking Status: Never smoker Alcohol: None Drugs: None Review of Systems - Review of Systems General: Denies: Fever, Night Sweats, Fatigue HEENT: Denies: Vision Change Cardiovascular: Reports: Chest Discomfort, Chest Discomfort at Rest, Chest Discomfort with Exertion, Chest Tightness. Denies: Shortness of Breath, Ortho pnea, PND, Peripheral Edema, Palpitations, Lightheadedness, Dizziness, Near Syncope, Syncope Respiratory: Denies: Cough, Sputum Production, Hemoptysis Gastrointestinal: Denies: Hematemesis, Hematochezia, Melena Genitourinary: Denies: Dysuria, Hematuria Skin: Denies: Rash Neurological: Denies: Dizziness Psychiatric: Denies: Anxiety Hematologic/ Lymphatic: Denies: Lymph Node Enlargement, Anemia Subjectve: Pleasant gentleman in no distress Objective: Vital Signs Temp Pulse Resp BP Pulse Ox 97.6 F L 65 14 139/72 H 98 09/02/19 06:00 09/02/19 07:21 09/02/19 07:00 09/02/19 09:13 09/02/19 07:00 Oxygen Flow Rate (L/min) 2 Oxygen Delivery Method Nasal Cannula Weight: 203 lb 14.841 oz Body Mass Index (BMI) 26.1 Intake and Output for Last 24 Hours 08/31/19 09/01/19 09/02/19 23:59 23:59 23:59 Intake Total 1257.93 / 1755.93 1910. / Balance 1257.93 / 1755.93 1910. / General: Awake, Alert, Oriented x 3 HEENT: PERRL, EOMI, Sclera Non Icteric Neck: Supple, Good ROM, No Lymph Node Enlargement Lungs: Clear to auscultation Cardiovascular: Regular Rhythm, Normal S1, Normal S2, No Murmurs, No Rubs, No Gallops Vascular: No Carotid Bruits, Normal Femoral Pulses, Normal Radial Pulses, Normal Dorsalis Pedal Pulse, Normal Posterior Tibial Pulses Abdomen: Bowel Sounds Present, Soft, Non Tender, No HSM, No Organomegaly Extremities: No Cyanosis, No Clubbing, No edema Musculoskeletal: No Erythema Skin: No Rashes Lymphatic: No Lymph Node Enlargement Neurological: No Focal Motor or Sensory Deficit Psych/Mental Status: Appropriate 09/01/19 08:15: B-Natriuretic Peptide 33.5 09/01/19 08:15: Magnesium 1.9 09/01/19 14:04: Troponin I 1.840 H* 09/01/19 14:04: PT 16.1 H, INR 1.3, APTT > 250.0 H* 09/01/19 17:16: Troponin I 7.050 H* 09/01/19 21:45: APTT > 250.0 H* 09/02/19 05:00: APTT 97.9 H* 09/02/19 06:48: WBC 6.0, RBC 3.96 L, Hgb 12.4 L, Hct 36.8 L, MCV 92.9, MCH 31.3, MCHC 33.7, Plt Count 149 L, MPV 9.9 09/02/19 06:50: Sodium 138, Potassium 3.7, Chloride 111 H, Carbon Dioxide 20.0 L , Anion Gap 7, BUN 13, Creatinine 0.79, Est GFR (MDRD) Af Amer 122, Est GFR (MDRD) Non-Af 101, BUN/Creatinine Ratio 16.5, Glucose 104, Calcium 8.3 L, Troponin I 11.100 H* 09/02/19 06:50: Triglycerides 97, Cholesterol 146, LDL Cholesterol 97, VLDL Cholesterol 19, HDL Cholesterol 30 L Rhythm: EKG: EKG on August 31 at 807 demonstrated sinus rhythm with a rate of [address] depression consistent with ischemia. Follow-up EKG done at 1052 demonstrates sinus rhythm with a first-degree AV block and more pronounced ST depression rated in lead V2 through V6 in 1 and aVL ECHO: Stress Test: Cardiac Cath: PCI: CT Surgery: Holter monitor: EPS: PPM: CXR: Chest CT Scan: Assessment/Plan 1. Non-ST elevation myocardial infarction. * The patient appears to be doing better this morning and will be transitioned from the ICU. * Will restart on oral nitroglycerin * Will increase carvedilol to 6.25 twice a day * Continue lisinopril * Would increase Ranexa to 500 mg twice a day * Patient had previously said that he was not a candidate for further intervention. His last catheterization which was almost 9 years ago demonstrated severe triple-vessel disease, with severe left main disease, occluded left anterior descending artery, 75% stenosis in the proximal circumflex artery, occluded first obtuse marginal branch. The left internal mammary artery to the left anterior descending artery sequential to the diagonal was patent, the saphenous vein graft to the first obtuse marginal branch had a 75% stenosis, and there was a 90 to 99% stenosis of the saphenous vein graft to the right coronary artery which was collateralized from the distal LAD to the distal PDA. * Would recommend his anatomy be reviewed by his primary farm mortgage agent for further recommendations on management. * Would obtain an echocardiogram in a.m. to assess his left ventricular function. * It appears that there is room in his medical therapy at this particular time for further maximization. 2. Arrhythmia: History of atrial arrhythmia/sinus bradycardia: Currently on normal sinus rhythm. 3. Hypertension, dyslipidemia and history of CVA: Home medication reconciliation done. 4. Hyperlipidemia.-Continue aggressive medical therapy with risk factor modification Thank you for allowing me to participate in the care of your patient. Please don't hesitate to call if any issues arise. Living will/advanced directive/end of life care: Patient does not have living will or advanced directive. After discussion of procedures involved with full code, DNR CC arrest and DNR CC, the patient opted for DNR-CC Arrest Patient does not want artificial life support including intubation, tube feed, ventilator and/chest compression, central venous catheter, vasopressor and DC shock if needed DNR CC arrest.
--- NOTE | 2019-09-02 09:40 | ECHOCS_ITS ---
Reason For Study: S/P [place] Procedure This was a 2D Doppler, Color Flow transthoracic echocardiogram. The study was technically difficult. Due to body habitus. Contrast injection was performed. Exam performed portable in patient room. Left Ventricle Normal LV size. Mild concentric left ventricular hypertrophy. Left ventricular systolic function is normal. The estimated ejection fraction is 53 %. Post operative septal motion. Mid-anteroseptal : Hypokinetic. Right Ventricle Normal RV size. Normal systolic function. Atria The left atrium is mildly enlarged. Normal right atrium. Mitral Valve Mitral valve not well visualized. Mild (1+) eccentric mitral valve insufficiency. Tricuspid Valve The tricuspid valve is not well visualized. Aortic Valve Trisinus/trileaflet aortic valve. Mild (1+) eccentric aortic valve insufficiency. Pulmonic Valve The pulmonic valve is not well visualized. Great Vessels Normal aortic root. The pulmonary artery is normal size. Normal inferior vena cava. Pericardium/Pleural No pericardial effusion. Medication Diluted definity 5.0ml given slow IV push to enhance endocardial definition. MMode/2D Measurements & Calculations LVIDd: 5.3 cm IVSd: 1.3 cm Ao root diam: 3.0 cm LVIDs: 4.1 cm LVPWd: 1.2 cm FS: 23.4 % LAV(MOD-bp): 76.9 ml LA A4 area: 24.6 cm2 LA dimension(2D): 4.4 cm LAV(MOD-bp) Indexed: 35.2 ml/m2 LAV(MOD-sp2): 74.3 ml LAV(MOD-sp4): 71.5 ml RA A4 area: 20.7 cm2 Time Measurements MV dec time: 0.39 sec Doppler Measurements & Calculations MV E max saud: 64.7 cm/sec Lat Peak E' Saud: 10.6 cm/sec Med Peak E' Saud: 7.7 cm/sec MV A max saud: 83.3 cm/sec E/E' lat: 6.1 E/E' med: 8.4 MV E/A: 0.78 Ao V2 max: 174.0 cm/sec LV V1 max: 85.9 cm/sec PA V2 max: 98.2 cm/sec Ao max P.1 mmHg LV V1 max P.0 mmHg TR max saud: 252.1 cm/sec TR max P.4 mmHg Interpretation Summary Normal LV size. Mild concentric left ventricular hypertrophy. Left ventricular systolic function is normal. The estimated ejection fraction is 53 %. Mid-anteroseptal : Hypokinetic Contrast injection was performed. Ordering Physician: Hemanth Barlow Referring Physician: David Wilhelm Performed By: Salma Meza, SHAKEEL, RVT
--- NOTE | 2019-09-02 10:00 | EKG12_ITS ---
Test Reason : AM EKG Blood Pressure : / mmHG Vent. Rate : 068 BPM Atrial Rate : 068 BPM P-R Int : 214 ms QRS Dur : 094 ms QT Int : 484 ms P-R-T Axes : 027 -08 041 degrees QTc Int : 514 ms Sinus rhythm with 1st degree A-V block Nonspecific ST abnormality Prolonged QT Abnormal ECG When compared with ECG of 01-SEP-2019 12:32, MANUAL COMPARISON REQUIRED, DATA IS UNCONFIRMED Confirmed by JORDON NAVARRO, NALLELY ([id number]), electronic news gathering editor SARAH FERRARI ([id number]) on 09/03/2019 11:08:43 AM Referred By: DR RECIO Confirmed By:NALLELY RUVALCABA MD
[2019-09-02 11:40] LABS: Bedside Glucose 96 mg/dL (70-110)
[2019-09-02] MEDS: Isosorbide DN 20 MG Tablet PO ×2 (14:44→21:47)
[2019-09-02] MEDS: Enoxaparin 100 MG/ML Syringe 90 MG SC ×2 (14:48→18:50)
[2019-09-02 17:10] LABS: Bedside Glucose 79 mg/dL (70-110)
[2019-09-02] MEDS: Atorvastatin Calcium 80 MG Tablet PO (21:48)
[2019-09-02] MEDS: Lisinopril 2.5 MG Tablet PO (21:48)
[2019-09-02 23:10] LABS: Bedside Glucose 96 mg/dL (70-110)
[2019-09-03 02:56] VITALS: PULSE 66
[2019-09-03 03:49] VITALS: BP 112/45; PULSE 70; RESP 16; TEMP 37.2; O2SAT 96
[2019-09-03 06:33] VITALS: BP 116/70; PULSE 70; RESP 16; TEMP 36.8; O2SAT 99
[2019-09-03] MEDS: Enoxaparin 100 MG/ML Syringe 90 MG SC (06:48)
[2019-09-03] MEDS: Isosorbide DN 20 MG Tablet PO (06:48)
[2019-09-03 07:00] VITALS: PULSE 73
[2019-09-03 07:05] LABS: Bedside Glucose 93 mg/dL (70-110)
[2019-09-03 07:34] LABS: Absolute Lymphocyte Count 1.21 X10^3/uL (0.83-4.51); Absolute Neutrophil Count 3.6 X10^3/uL (2.0-7.7); Basophil# 0.04 X10^3/uL; Basophil% 0.7 % (0-1); Eosinophil# 0.06 X10^3/uL; Eosinophils% 1.1 % (0-5); Hematocrit 38.4 % (40-54); Hemoglobin 12.9 g/dL (13.0-16.5); Lymphocyte # 1.21 X10^3/ul (4.0); Lymphocyte % 21.2 % (19-41); Mean Corp Hgb Conc 33.6 g/dL (32-36); Mean Corpuscular Hgb 31.2 pg (27.0-32.0); Mean Platelet Vol. 10.2 fl (6.2-12.0); Monocyte# 0.78 X10^3/uL; Monocyte% 13.7 % (0-10); NRBC Flagged by Analyzer 0 % (0-5); Neutrophil % 62.9 % (47-70); Platelet Count 163 K/mm3 (150-450); RBC Distribution Width CV 13.3 % (11.6-14.6); RBC Distribution Width SD 45.2 fl (35.1-43.9); Red Blood Count 4.13 M/mm3 (4.6-6.2); White Blood Count 5.7 K/mm3 (4.4-11.0)
[2019-09-03 07:55] LABS: Anion Gap 6 (5-15); BUN 11 mg/dL (7-18); BUN/Creat Ratio 12.4 RATIO (10-20); Calcium,Total 8.1 mg/dL (8.5-10.1); Chloride 109 mmol/L (98-107); Creatinine, Serum 0.89 mg/dL (0.70-1.30); EST Glomerular Filtration Rate 88 mL/min (>60); Est Glom Filt Rate - Afr Amer 106 mL/min (>60); Estimated Creatinine Clearance 78.25 ml/min; Glucose 100 mg/dL (74-106); Potassium 3.7 mmol/L (3.5-5.1); Sodium Level 139 mmol/L (136-145)
[2019-09-03 09:50] VITALS: BP 132/72; PULSE 60; RESP 16; TEMP 36.9; O2SAT 99
[2019-09-03] MEDS: Clopidogrel Bisulfate 75 MG Tablet PO (09:52)
[2019-09-03] MEDS: Aspirin 81 MG TAB.CHEW PO (09:52)
[2019-09-03] MEDS: Ranolazine 500 MG Tablet PO (09:52)
[2019-09-03] MEDS: Carvedilol 6.25 MG Tablet PO (09:52)
[2019-09-03] MEDS: Pantoprazole Sodium 40 MG Tablet PO (09:52)
[2019-09-03] MEDS: 0.9% Saline Lock 10 ML Syringe IV (09:55)
--- NOTE | 2019-09-03 10:04 | DCINST_ITS ---
- Discharge Diagnoses Current Active Problems: Current Active and Chronic Problems (Last Reviewed 01/12/19 @ 09:39 by Vanita Cohen) STEMI (ST elevation myocardial infarction) (Acute) You will use the following diet at home:: Cardiac Your food should be the consistency of: Regular Discharge Activity: May Not Drive Weight Bearing Status: Weight bearing as tolerated Call your doctor if you observe: Fever of 101 or Higher, Inability to urinate, Inability to have a bowel movement, Shortness of breath, Dizziness, Fainting spells, Swelling in the ankles, Chest pain, Prolonged hiccoughing, Increased palpitations (irregular heartbeat), Calf discomfort, Uncontrolled pain Allergies/Adverse Reactions: Allergies erythromycin base Adverse Reaction (Mild, Verified 09/01/19 08:09) stomach problems Medications to take at Discharge Aspirin [[place] Aspirin] 81 mg PO DAILY 09/18/13 nitroglycerin 0.4 mg sublingual tablet See Rx Instructions .ROUTE .COMPLEX #100 tab 06/15/19 clopidogrel 75 mg tablet 75 mg PO DAILY #90 tab 07/04/19 carvedilol 6.25 mg tablet 6.25 mg PO QHS #90 tab 08/09/19 omeprazole 40 mg capsule,delayed release 40 mg PO DAILY 08/27/19 Lisinopril [Zestril] 2.5 mg PO QHS 09/01/19 Atorvastatin Calcium [Lipitor] 80 mg PO QHS #30 tab 09/03/19 Isosorbide DN [Isordil] 20 mg PO TID #60 tab 09/03/19 Ranolazine [Ranolazine ER] 500 mg PO BID #90 tab 09/03/19 The following prescriptions were given: Isosorbide DN [Isordil] 20 mg PO TID #60 tab Transmission Status: Pending to [facility] Atorvastatin Calcium [Lipitor] 80 mg PO QHS #30 tab Transmission Status: Received by [facility] Ranolazine [Ranolazine ER] 500 mg PO BID #90 tab Transmission Status: Received by [facility] Primary Care Physician: Mike Wilhelm MD [Primary Care Provider] - Please follow up with your Primary Care Physician in: in 2 weeks Test Results: Test results from this visit will be discussed in further detail at your follow- up appointment, if applicable. Please Follow Up With: Lev Grace MD When: in 3-4 weeks
--- NOTE | 2019-09-03 10:09 | PCM.DC.SUM ---
Discharge Date and Diagnosis - Problem List Patient Problems: Active and Suspected Problems (Last Reviewed 01/12/19 @ 09:39 by Vanita Cohen) STEMI (ST elevation myocardial infarction) (Acute) Date of Admission: 09/01/19 Date of Discharge: 09/03/19 - Primary Discharge Diagnosis Active and Suspected Problems (Last Reviewed 01/12/19 @ 09:39 by Vanita Cohen) Diffuse multivessel non-STEMI, septal anterior lateral wall - Secondary Discharge Diagnosis Chronic Problems (Last Reviewed 01/12/19 @ 09:39 by Vanita Cohen) Essential hypertension (Chronic) CVA (cerebral vascular accident) (Chronic) CAD (coronary artery disease) (Chronic) Sinus bradycardia (Chronic) Atrial arrhythmia (Chronic) History of non-ST elevation myocardial infarction (NSTEMI) (Chronic) Atherosclerosis of coronary artery of [place] heart without angina pectoris (Chronic) CABG x4- TAVAREZ to LAD, reverse SVG to CX, SVG to 2 branches on right Hyperlipidemia (Chronic) Postsurgical aortocoronary bypass status (Chronic ~04/18/00) CABG x4- TAVAREZ to LAD, reverse SVG to CX, SVG to 2 branches on right Diabetes mellitus (Chronic) Hospital Course and Treatment Operations: None Summary of Care Provided: [] The patient is a 79 year old M with multiple comorbidities including coronary artery status post four-vessel CABG and and CVA came to ER with chest pain ongoing for 10 days. While in the ED, chest pain worsened, and found to be posterior wall STEMI with reciprocal change in anterior lateral leads. 1. Diffuse multivessel non-STEMI, septal anterior lateral wall: Patient is being admitted in the stepdown unit to prevent from COVID 19 infection also not a candidate for PCI. On IV heparin drip and nitro drip. Currently on aspirin, Plavix, carvedilol 6.25 mg nightly, lisinopril 2.5 mg daily and morphine. Nitro drip was tapered down and discontinued. Heparin drip was changed to Lovenox therapeutic dose. Reservation Sales Agent Dr. Collazo is consulted for medical management. First EKG at about 8 AM shows normal sinus rhythm at [address]-T changes. Second EKG at 10:52 AM when he had severe chest pain showed ST elevation 1 mm in aVR and ST depression with T wave inversion about 2 mm V2 to V6 and slight depression in 1 and aVL The patient is started on nitroglycerin drip. It seems patient also had some musculoskeletal component of chest pain as he was cutting down January the day before admitted. Chest pain resolved.. Serial troponins was done and peaked at 11.1 and then decreased to 5.87. 2D echo was done as reported above which did not show any major change from previous echo of October 2018. Ranexa was increased to 500 mg twice daily and atorvastatin 80 mg daily and Imdur 60 mg daily changed to Isordil 20 mg 3 times daily. Lipid profile reported LDL 97, triglyceride 97, total cholesterol 146 and HDL 30. 2. Coronary artery disease status post four-vessel CABG not amenable to PCI and chronic mild HFpEF: As per echo in November 18, EF 55%. Echo in October 2018 Left ventricular systolic function is normal. The estimated ejection fraction is 55 %. Post operative septal motion. Mild concentric left ventricular hypertrophy. The left atrium is mildly enlarged. Mild (1+) eccentric mitral valve insufficiency. Mild tricuspid valve insufficiency. Trivial aortic valve insufficiency. Transmitral diastolic flow velocities suggest diastolic dysfunction (pseudonormal pattern). Cardiac cath in 10/2010 in [facility], he has severe triple-vessel coronary artery disease, severe left main, occluded mid LAD, 75% stenosis in proximal left circumflex, occluded distal first OM, patent TAVAREZ to first diagonal and sequentially to LAD, 75% stenosis of saphenous to first obtuse marginal, 9099% stenosis of SVG to RCA and collateral from distal LAD to distal PDA Repeat echo was done on 09/03/2019: Echo is a whole looks similar Interpretation Summary Normal LV size. Mild concentric left ventricular hypertrophy. Left ventricular systolic function is normal. The estimated ejection fraction is 53 %. Mid-anteroseptal : Hypokinetic Contrast injection was performed. Medical management as mentioned above 3. Arrhythmia: History of atrial arrhythmia/sinus bradycardia: Currently on normal sinus rhythm. 4. Diabetes mellitus type 2: Accu-Chek essentials cover with Humalog sliding scale 5. Hypertension, dyslipidemia and history of CVA: Home medication reconciliation done. DVT prophylaxis: Lovenox subcu. Living will/advanced directive/end of life care: Patient does not have living will or advanced directive. DNR CC arrest. Discharge medication reconciliation done. Discharge follow-up instructions completed. Discharge process discussed with the patient and all questions were answered to patient's satisfaction. Scripts were sent to the patient's pharmacy. Total time spent, exact 35 minutes on discharge meds reconciliation, examination, coordination of care with nurses and ancillary staff, review of imaging and blood test and discussion with the patient on follow-up instructions Patient Problems: Active and Suspected Problems (Last Reviewed 01/12/19 @ 09:39 by Vanita Cohen) STEMI (ST elevation myocardial infarction) (Acute) - Physical Exam Vitals/I&O's: Vital Signs Temp Pulse Resp BP Pulse Ox 98.5 F 60 16 132/72 H 99 09/03/19 09:50 09/03/19 09:50 09/03/19 09:50 09/03/19 09:50 09/03/19 09:50 Oxygen Flow Rate (L/min) 2 Oxygen Delivery Method Room Air Weight: 206 lb 5.643 oz Body Mass Index (BMI) 26.1 Intake and Output for Last 24 Hours 09/01/19 09/02/19 09/03/19 23:59 23:59 23:59 Intake Total 1257.93 / 1755.93 3201.98 / 3201.98 100 / 100 Output Total 1250 / 1250 300 / 300 Balance 1257.93 / 1755.93 1951.98 / 1951.98 -200 / -200 Laboratory Results 09/02/19 11:23: POC Glucose 96 09/02/19 17:05: POC Glucose 79 09/02/19 21:46: POC Glucose 96 09/03/19 06:36: POC Glucose 93 09/03/19 07:13: Sodium 139, Potassium 3.7, Chloride 109 H, Carbon Dioxide 24.0, Anion Gap 6, BUN 11, Creatinine 0.89, Estim Creat Clear Calc 78.25, Est GFR (MDRD) Af Amer 106, Est GFR (MDRD) Non-Af 88, BUN/Creatinine Ratio 12.4, Glucose 100, Calcium 8.1 L 09/03/19 07:13: WBC 5.7, RBC 4.13 L, Hgb 12.9 L, Hct 38.4 L, MCV 93.0, MCH 31.2, MCHC 33.6, RDW Std Deviation 45.2 H, RDW Coeff of Ronal 13.3, Plt Count 163, MPV 10.2, Immature Gran % (Auto) 0.400, Neut % (Auto) 62.9, Lymph % (Auto) 21.2, [place] % (Auto) 13.7 H, Eos % (Auto) 1.1, Baso % (Auto) 0.7, Absolute Neuts (auto) 3.6, Absolute Lymphs (auto) 1.21, Nucleated RBC % 0 09/03/19 07:13: Troponin I 5.870 H* Current Medications Acetaminophen (Tylenol) 650 mg PO Q6H PRN PRN PRN Reason: Pain Score 1-10/Temp > 100.7 F Al Hydroxide/Mg Hydroxide (Mylanta Ii) 30 ml PO Q6H PRN PRN PRN Reason: Gastric Burning Albuterol Sulfate (Ventolin Aerosols) 2.5 mg INHALATION Q2H PRN PRN PRN Reason: SOB/Wheezing Aspirin (Aspirin, Baby) 81 mg PO DAILY@0800 [facility] Last Admin: 09/03/19 09:52 Dose: 81 mg Documented by: Atorvastatin Calcium (Lipitor) 80 mg PO QHS [facility], [facility] Last Admin: 09/02/19 21:48 Dose: 80 mg Documented by: Carvedilol (Coreg) 6.25 mg PO BID [facility] Last Admin: 09/03/19 09:52 Dose: 6.25 mg Documented by: Clopidogrel Bisulfate (Plavix) 75 mg PO DAILY [facility] Last Admin: 09/03/19 09:52 Dose: 75 mg Documented by: Dextrose (D50w Syringe) 0 gm IV X1 PRN; Protocol PRN Reason: Hypoglycemia Enoxaparin Sodium (Lovenox) 90 mg SC Q12@0600,1800 [facility] Last Admin: 09/03/19 06:48 Dose: 90 mg Documented by: Glucagon () 1 mg IM .X1 PRN PRN Reason: Hypoglycemia Nitroglycerin/Dextrose () 250 mls @ 3 mls/hr CONT INF .[id number] [facility], [facility]; Protocol Last Titration: 09/02/19 09:16 Dose: Infused Documented by: Ibuprofen (Motrin) 400 mg PO Q8H PRN PRN PRN Reason: chest pain Insulin Human Lispro (Humalog Kwikpen (Bkc)) 0 unit SC ACHS [facility], [facility]; Protocol Last Admin: 09/03/19 06:45 Dose: Not Given Documented by: Isosorbide Dinitrate (Isordil) 20 mg PO TID [facility] Last Admin: 09/03/19 06:48 Dose: 20 mg Documented by: Lisinopril (Zestril) 2.5 mg PO QHS [facility] Last Admin: 09/02/19 21:48 Dose: 2.5 mg Documented by: Morphine Sulfate () 2 mg IV Q3H PRN PRN PRN Reason: Pain Score 6-10/10 Last Admin: 09/01/19 16:13 Dose: 2 mg Documented by: Oxycodone HCl (Oxyir) 5 mg PO Q4H PRN PRN PRN Reason: Pain Score 4-5/10 Last Admin: 09/01/19 20:09 Dose: 5 mg Documented by: Pantoprazole Sodium (Protonix) 40 mg PO DAILY [facility] Last Admin: 09/03/19 09:52 Dose: 40 mg Documented by: Prochlorperazine Edisylate (Compazine Iv) 5 mg IV Q4H PRN PRN PRN Reason: Breakthrough nausea/vomiting Last Admin: 09/01/19 22:11 Dose: 5 mg Documented by: Ranolazine (Ranexa) 500 mg PO BID [facility] Last Admin: 09/03/19 09:52 Dose: 500 mg Documented by: Senna/Docusate Sodium (Senokot-S, Melinda-Colace) 2 tablet PO BID PRN PRN PRN Reason: Constipation Sodium Chloride () 10 - 40 ml IV UD PRN PRN Reason: SALINE FLUSH Last Admin: 09/03/19 09:55 Dose: 20 ml Documented by: Discharge Activity: May Not Drive Weight Bearing Status: Weight bearing as tolerated Call your doctor if you observe: Fever of 101 or Higher, Inability to urinate, Inability to have a bowel movement, Shortness of breath, Dizziness, Fainting spells, Swelling in the ankles, Chest pain, Prolonged hiccoughing, Increased palpitations (irregular heartbeat), Calf discomfort, Uncontrolled pain Home Medications: Medications to take at Discharge Aspirin [[place] Aspirin] 81 mg PO DAILY 09/18/13 nitroglycerin 0.4 mg sublingual tablet See Rx Instructions .ROUTE .COMPLEX #100 tab 06/15/19 clopidogrel 75 mg tablet 75 mg PO DAILY #90 tab 07/04/19 carvedilol 6.25 mg tablet 6.25 mg PO QHS #90 tab 08/09/19 omeprazole 40 mg capsule,delayed release 40 mg PO DAILY 08/27/19 Lisinopril [Zestril] 2.5 mg PO QHS 09/01/19 Atorvastatin Calcium [Lipitor] 80 mg PO QHS #30 tab 09/03/19 Isosorbide DN [Isordil] 20 mg PO TID #60 tab 09/03/19 Ranolazine [Ranolazine ER] 500 mg PO BID #90 tab 09/03/19 Following Prescrptions Were Given to Patient: Isosorbide DN [Isordil] 20 mg PO TID #60 tab Transmission Status: Pending to [email or web address] Mail Delivery Atorvastatin Calcium [Lipitor] 80 mg PO QHS #30 tab Transmission Status: Received by [email or web address] Mail [facility] Ranolazine [Ranolazine ER] 500 mg PO BID #90 tab Transmission Status: Received by [email or web address] Mail [facility] Primary Care Physician: Mike Wilhelm MD [Primary Care Provider] - Please follow up with your Primary Care Physician in: in 2 weeks Please Follow Up With: Lev Grace MD When: in 3-4 weeks Medical Necessity - Tobacco Use Smoking Status: Never smoker Meaningful Use Info Meaningful Use Diagnoses (Choose all that apply): AMI - AMI/Post PCI/Angioplasty Aspirin given w/in 24hrs of arrival?: Yes ASA at discharge?: Yes Antiplatelet Therapy at Discharge:: Yes Statins at discharge?: Yes [place]/ARB at discharge?: Yes Beta Anastasia at discharge?: Yes Done w/ Acute CT measure.: Yes Documented LVEF (%): 53 Inpatient E&M: 99126 Disch Hosp
--- NOTE | 2019-09-03 10:30 | PCM.PN.CARD ---
Subjectve: The patient is awake and alert today. He denies any ongoing chest discomfort. He states since being in the hospital, having his medications adjusted, his chest discomfort is now absent. He denies any concerning respiratory events. There has been no ongoing palpitations. He has had no near syncope or syncope. He states he wants to go home. Objective: Vital Signs Temp Pulse Resp BP Pulse Ox 98.5 F 60 16 132/72 H 99 09/03/19 09:50 09/03/19 09:50 09/03/19 09:50 09/03/19 09:50 09/03/19 09:50 Oxygen Flow Rate (L/min) 2 Oxygen Delivery Method Room Air Weight: 206 lb 5.643 oz Body Mass Index (BMI) 26.1 Intake and Output for Last 24 Hours 09/01/19 09/02/19 09/03/19 23:59 23:59 23:59 Intake Total 1257.93 / 1755.93 3201.98 / 3201.98 100 / 100 Output Total 1250 / 1250 300 / 300 Balance 1257.93 / 1755.93 1951.98 / 1951.98 -200 / -200 General: Awake, Alert, Oriented x 3, Cooperative, No Acute Distress HEENT: Atraumatic, Normocephalic, PERRL, EOMI, Sclera Non Icteric Oral: Moist Mucosa Neck: Supple, Good ROM, No JVD Lungs: Clear to auscultation Cardiovascular: Regular Rhythm, Premature Ectopic Beats, Normal S1, Normal S2 Abdomen: Bowel Sounds Present, Soft Extremities: No edema Neurological: No Focal Motor or Sensory Deficit 09/03/19 07:13: Sodium 139, Potassium 3.7, Chloride 109 H, Carbon Dioxide 24.0, Anion Gap 6, BUN 11, Creatinine 0.89, Est GFR (MDRD) Af Amer 106, Est GFR (MDRD) Non-Af 88, BUN/Creatinine Ratio 12.4, Glucose 100, Calcium 8.1 L 09/03/19 07:13: WBC 5.7, RBC 4.13 L, Hgb 12.9 L, Hct 38.4 L, MCV 93.0, MCH 31.2, MCHC 33.6, Plt Count 163, MPV 10.2, Immature Gran % (Auto) 0.400, Neut % (Auto) 62.9, Lymph % (Auto) 21.2, [place] % (Auto) 13.7 H, Eos % (Auto) 1.1, Baso % (Auto) 0.7, Absolute Neuts (auto) 3.6, Nucleated RBC % 0 09/03/19 07:13: Troponin I 5.870 H* Rhythm: Sinus rhythm; PVCs Medical Necessity - Tobacco Use Smoking Status: Never smoker Assessment/Plan 1. Non-ST segment elevation ME The patient presents with findings compatible with a non-ST segment elevation ME. It appears his troponin I levels have peaked and have now declined. His ECG pattern has improved. An echocardiogram has been requested to evaluate his left ventricular wall motion systolic function. In the interim his previous noninvasive and invasive studies have been reviewed. As noted he is undergone extensive evaluation in the past including diagnostic cardiac catheterization performed in 2013 at [facility] in [place], [place]. Based on his angiographic findings at that time he was felt to be high risk for any attempt at percutaneous revascularization therapy and he declined such. He states he has done well since that time on his medical management. At the present time he states he wants to continue medical therapy and does not want to entertain any further invasive evaluation or care. 2. CAD status post CABG Again he is undergone extensive noninvasive and invasive evaluation in the past. He has been treated medically. He was not felt to be a candidate for revascularization therapy in the past-other than high risk at a tertiary care center. He has not wanted to proceed in that manner. He has wanted continued medical management. 3. Cardiac dysrhythmia with history of EPS/RFA-remote He continues to have evidence of his PVCs. Otherwise he has had no other ongoing dysrhythmias that have been reported. He has continued medical therapy with his beta-blockers. 4. Hyperlipidemia He has continued dietary adjustment and medical management as tolerated. 5. Hypertension He will need to continue medical therapy with adjustment as deemed appropriate. Overall, at the present time, the patient has wanted continued medical therapy. A previous request has been made for an echocardiogram to evaluate his left ventricular wall motion systolic function to assist in his ongoing evaluation and care. He has not wanted to proceed with any further invasive evaluation or care. He has requested discharge home to be with his family. He states that he has no fear of dying and is prepared to do so if it is his time. This note was generated using a voice recognition system and there may be incorrect words, spelling or punctuation that were not noted when reviewing the office note prior to saving.
--- NOTE | 2019-09-03 11:02 | CASEMGMT ---
NORMA BECERRA assessment: Face to Face with patient for initial transition planning/care coordination assessment. NORMA BECERRA introduced self and role at [facility], pt voices understanding and consents to assessment at this time. Pt is sitting up in bed in no distress at this time. Pt is A/OX4 at this time and answers all questions appropriately at this time. Care providers, pharmacy, and demographics verified at this time. Presentation: Intermittent CP for 10 days and resolved with nitro. Admitting dx: NSTEMI PCP: Choco Specialists: Lesly, cardio Preferred Pharmacy: [facility] mail order Insurance: [facility] Living Will/HPOA: Pt states has LW/HPOA and is aware that they are not on file at [facility] at this time. Pt states his , Kayleen Martin, is HPOA. LNOK: Kayleen Martin, /HPOA Living Arrangements: Pt states lives with in 2 story home and states no concerns at home at this time. Pt states is independent with ADL's. Transportation: Pt states drives self and states no transportation concerns at this time. DME/HHC: Pt states has walkerx2(does not use), grab bars, and shower chair. Pt states no need for any further DME at this time. Pt states no hx of HHC or SNF in the past. Pt states no concerns with going home at time of discharge. Pt states is retired. Pt states does not smoke or drink ETOH. Pt states no further questions/concerns/needs at this time. CM to follow for any further discharge planning/needs. Advised pt to ask for CM if any further questions/concerns/needs arise, voices understanding. Pt Goal: Home Plan: Home [place] NORMA BECERRA
[2019-09-03 12:25] LABS: Bedside Glucose 113 mg/dL (70-110)
--- NOTE | 2019-09-04 14:33 | CASEMGMT ---
NORMA BECERRA Discharge F/U Phone Call LACRonda: Gonzales Strata: 3 Discharge date: 09/03/2019 Call date: 09/04/2019 Call time: [id number] Duration: Admission dx: STEMI Pt's answered phone and states that pt is lying down right now. states pt did not sleep well last night and that pt did have some chest pain also but they did not think that he needed to take his coreg last night and then once he had it, pt felt better. states that they did speak with PCP this am to notify of CP and they stated for to let them know if it happens again. states no further questions/concerns regarding d/c instructions/medications at this time. states that pt has f/u with PCP and cardio set up at this time. voices no further questions/concerns/needs at this time and thanked this RN HERNAN for the call at this time. SStcorrie GREEN CM
== END 2019-09-03 14:12 | disposition home or self-care (01) | DRG 281 ==
LOC: ED 09:22 → PCU 10:41 → ICU 09-04 10:27
PROVIDERS: Internal Medicine Cardiovascular Disease; Admitting Provider Internal Medicine; Emergency Provider Emergency Medicine; PCP Family Medicine; Visit Provider Internal Medicine
DX: I21.4 Non-ST elevation (NSTEMI) myocardial infarction (principal); I50.32 Chronic diastolic (congestive) heart failure; I11.0 Hypertensive heart disease with heart failure; I25.2 Old myocardial infarction; E78.5 Hyperlipidemia, unspecified; E11.9 Type 2 diabetes mellitus without complications; I25.10 Atherosclerotic heart disease of native coronary artery without angina pectoris; Z95.1 Presence of aortocoronary bypass graft; Z86.73 Personal history of transient ischemic attack (TIA), and cerebral infarction without residual deficits; Z79.82 Long term (current) use of aspirin; Z79.02 Long term (current) use of antithrombotics/antiplatelets; Z79.899 Other long term (current) drug therapy; Z66 Do not resuscitate; R00.1 Bradycardia, unspecified
CPT/HCPCS: 36415; 71045; 80048; 80061; 82962; 83735; 83880; 84443; 84484; 85025; 85027; 85610; 85730; 93005; 93306; 96361; 96374; 97162; 97166; 99251; 99285; J7030; Q9957; A4216; C8929; G0463

== ENCOUNTER → 2019-11-27 | Outpatient (CLI) | payer MEDICARE, MEDICAID, SELFPAY ==
[2019-10-01 13:33] VITALS: BMI 26.1
--- NOTE | 2019-11-27 08:44 | RAD_ITS ---
STUDY: X-RAY - RIGHT KNEE REASON FOR EXAM: Male, 79 years old. Bilateral knee pain. No known injury. TECHNIQUE: 3 view(s) of the knee. COMPARISON: None. FINDINGS: There is demineralization of the visualized distal femur. There is demineralization of the tibia and fibula. There is arthrosis of the proximal tibiofibular articulation. There is no acute fracture, dislocation or destructive osseous pathology. There is mild degenerative arthrosis of the medial femorotibial compartment. Normal lateral femorotibial compartment. There is moderate degenerative arthrosis of the patellofemoral articulation. There is no demonstrated joint effusion. There are vascular calcifications in the popliteal fossa with surgical clips in the posteromedial upper calf suggesting prior vascular surgery. RAD/Knee 4 or More Views IMPRESSION: Osteopenia and degenerative changes of the right knee. Electronically Signed: Moi Frank DO at 17:28 EDT Tel [phone], Service support ,
--- NOTE | 2019-11-27 08:44 | RAD_ITS ---
STUDY: X-RAY - LEFT KNEE REASON FOR EXAM: Male, 79 years old. Bilateral knee pain. TECHNIQUE: 3 view(s) of the knee. COMPARISON: None. FINDINGS: There is demineralization of the visualized distal femur. There is demineralization of the tibia and fibula. Normal proximal tibiofibular articulation. There is no acute fracture, dislocation or destructive osseous pathology. There is mild degenerative arthrosis of the medial femorotibial compartment. There is mild degenerative arthrosis of the lateral femorotibial compartment. There is moderate degenerative arthrosis of the patellofemoral articulation. There is no demonstrated joint effusion. The soft tissue structures are unremarkable. There are surgical clips in the medial upper calf suggesting prior vascular surgery. RAD/Knee 4 or More Views IMPRESSION: Osteopenia and degenerative changes of the left knee. Electronically Signed: Moi Frank DO at 17:29 EDT Tel [phone], Service support ,
== END | disposition home or self-care (01) ==
LOC: HPRAD 08:40
PROVIDERS: PCP Family Medicine; Referring Provider Family Medicine; Visit Provider Family Medicine
DX: M25.562 Pain in left knee (principal)
CPT/HCPCS: 73564

== ENCOUNTER → 2020-11-18 16:35 | Outpatient (CLI) | payer MEDICARE, SELFPAY ==
[2020-08-18 10:50] VITALS: BMI 25.2
[2020-11-18 18:02] LABS: Hematocrit 40.5 % (40-54); Mean Corp Hgb Conc 34.6 g/dL (32-36); Mean Corpuscular Hgb 33.7 pg (27.0-32.0); Mean Corpuscular Volume 97.4 fL (80-94); Mean Platelet Vol. 10.4 fl (6.2-12.0); Platelet Count 150 K/mm3 (150-450); RBC Distribution Width SD 46.4 fl (35.1-43.9); Red Blood Count 4.16 M/mm3 (4.6-6.2); White Blood Count 4.5 K/mm3 (4.4-11.0)
[2020-11-18 18:29] LABS: Anion Gap 8 (5-15); BUN 18 mg/dL (7-18); BUN/Creat Ratio 18.9 RATIO (10-20); Calcium,Total 8.6 mg/dL (8.5-10.1); Chloride 107 mmol/L (98-107); Creatinine, Serum 0.95 mg/dL (0.70-1.30); EST Glomerular Filtration Rate 81 mL/min (>60); Est Glom Filt Rate - Afr Amer 98 mL/min (>60); Glucose 82 mg/dL (74-106); Potassium 4.6 mmol/L (3.5-5.1); Sodium Level 139 mmol/L (136-145)
== END ==
PROVIDERS: PCP Family Medicine; Visit Provider Family Medicine
DX: Z01.818 Encounter for other preprocedural examination (principal)
CPT/HCPCS: 36415; 80048; 85027

== ENCOUNTER 2021-09-11 12:24 | Outpatient (CLI) | payer MEDICARE, SELFPAY ==
[2021-09-11 15:14] LABS: Absolute Lymphocyte Count 1.28 X10^3/uL (0.83-4.51); Absolute Neutrophil Count 2.2 X10^3/uL (2.0-7.7); Basophil# 0.02 X10^3/uL; Basophil% 0.5 % (0-1); Eosinophils% 2.4 % (0-5); Hematocrit 38.5 % (40-54); Lymphocyte # 1.28 X10^3/ul (0.83-4.51); Lymphocyte % 30.6 % (19-41); Mean Corp Hgb Conc 33.8 g/dL (32-36); Mean Corpuscular Hgb 33.1 pg (27.0-32.0); Mean Platelet Vol. 10.4 fl (6.2-12.0); Monocyte# 0.58 X10^3/uL; Monocyte% 13.9 % (0-10); NRBC Flagged by Analyzer 0 % (0-5); Neutrophil # 2.19 X10^3/uL (2.7-7.7); Neutrophil % 52.4 % (47-70); Platelet Count 141 K/mm3 (150-450); RBC Distribution Width CV 13.5 % (11.6-14.6); RBC Distribution Width SD 48.9 fl (35.1-43.9); Red Blood Count 3.93 M/mm3 (4.6-6.2); White Blood Count 4.2 K/mm3 (4.4-11.0)
[2021-09-11 15:45] LABS: Albumin, Serum 3.4 g/dL (3.2-5.0); BUN 18 mg/dL (7-18); BUN/Creat Ratio 20.3 RATIO (10-20); Creatinine, Serum 0.89 mg/dL (0.70-1.30); EST Glomerular Filtration Rate 88 mL/min (>60); Est Glom Filt Rate - Afr Amer 106 mL/min (>60); Glucose 116 mg/dL (74-106); Protein, Total 5.9 g/dL (6.4-8.2)
[2021-09-11 15:46] LABS: ALB/GLOB Ratio 1.4 RATIO (0.9-2.4); AST(SGOT) 20 U/L (15-37); Alanine Aminotransfer ALT/SGPT 17 U/L (16-61); Alkaline Phosphatase 71 U/L (45-117); Anion Gap 3 (5-15); Calcium,Total 8.6 mg/dL (8.5-10.1); Chloride 110 mmol/L (98-107); Globulin 2.5 g/dL (2.2-4.2); Potassium 4.9 mmol/L (3.5-5.1); Sodium Level 139 mmol/L (136-145)
== END 2021-09-11 23:59 | disposition home or self-care (01) ==
LOC: MFPLAB 12:28
PROVIDERS: PCP Family Medicine; Visit Provider Family Medicine
DX: R53.83 Other fatigue (principal)
CPT/HCPCS: 36415; 80053; 84443; 85025

== ENCOUNTER 2022-02-13 16:42 | Inpatient (IN) | payer MEDICARE, SELFPAY ==
[2022-02-13] VITALS (11 sets, daily range): BP systolic 85–138; BP diastolic 66–99; PULSE 84–121; RESP 12–39; TEMP 36.3; O2SAT 95–100; BMI 24.5
--- NOTE | 2022-02-13 17:17 | EKG12_ITS ---
Test Reason : CP Blood Pressure : / mmHG Vent. Rate : 088 BPM Atrial Rate : 082 BPM P-R Int : 000 ms QRS Dur : 132 ms QT Int : 396 ms P-R-T Axes : 000 -36 144 degrees QTc Int : 479 ms Normal sinus rhythm Left axis deviation Non-specific intra-ventricular conduction block T wave abnormality, consider lateral ischemia Abnormal ECG Confirmed by JORDON NAVARRO, NALLELY ([id number]), publication editor ZOILA LEACH ([id number]) on 02/16/2022 12:56:11 PM Referred By: JESS Confirmed By:NALLELY RUVALCABA MD
[2022-02-13] MEDS: Aspirin 81 MG TAB.CHEW 324 MG PO (17:27)
[2022-02-13 17:29] LABS: Absolute Lymphocyte Count 1.12 X10^3/uL (0.83-4.51); Absolute Neutrophil Count 4.6 X10^3/uL (2.0-7.7); Basophil# 0.03 X10^3/uL; Basophil% 0.5 % (0-1); Eosinophil# 0.06 X10^3/uL; Eosinophils% 0.9 % (0-5); Hematocrit 42.7 % (40-54); Hemoglobin 14.3 g/dL (13.0-16.5); Lymphocyte # 1.12 X10^3/ul (0.83-4.51); Lymphocyte % 17.4 % (19-41); Mean Corp Hgb Conc 33.5 g/dL (32-36); Mean Corpuscular Hgb 33.1 pg (27.0-32.0); Mean Corpuscular Volume 98.8 fL (80-94); Mean Platelet Vol. 10.7 fl (6.2-12.0); Monocyte% 9.3 % (0-10); NRBC Flagged by Analyzer 0 % (0-5); Neutrophil # 4.61 X10^3/uL (2.7-7.7); Neutrophil % 71.7 % (47-70); Platelet Count 123 K/mm3 (150-450); RBC Distribution Width CV 13.5 % (11.6-14.6); RBC Distribution Width SD 48.7 fl (35.1-43.9); Red Blood Count 4.32 M/mm3 (4.6-6.2); White Blood Count 6.4 K/mm3 (4.4-11.0)
--- NOTE | 2022-02-13 17:32 | RAD_ITS ---
STUDY: X-RAY CHEST REASON FOR EXAM: Male, 81 years old. Intermittent chest pain for several days. TECHNIQUE: Single AP portable view of the chest. COMPARISON: 09/01/2019. FINDINGS: The lungs are clear and expanded. There is no demonstrated pleural abnormality. Sternal cerclage wires are present from a prior sternotomy. The heart is normal in size. Normal mediastinum and lisa. Normal visualized pulmonary arteries. Normal visualized aortic arch and descending thoracic aorta. Mild degenerative changes of the thoracic spine. There is degenerative osteoarthritis of the bilateral shoulders. There is no demonstrated abnormality of the visualized soft tissue structures of the upper abdomen. RAD/Chest 1 View (Portable) IMPRESSION: Degenerative changes, as described above. No demonstrated acute cardiopulmonary process. No major interval change. Electronically Signed: Moi Frank DO at 17:50 EDT ,
--- NOTE | 2022-02-13 17:48 | ED.VIS.CHEST ---
HPI History of Present Illness Chief Complaint: Chest Pain Detail of Chief Complaint: More frequent and intense chest pain last several days. Informant: patient and family Onset/Context/Timing Onset: Days Activity at onset: gradual Timing: Intermittent Quality: Positive for Aching, Heaviness and Pressure Location: Left Chest Current Severity: Gone Maximum Severity: Mild Worsened By: Exertion Relieved By: NTG Associated Symptoms: Positive for Dyspnea; Negative for Nausea, Vomiting, Diaphoresis, Cough, Fever, Lightheadedness, Acid Reflux or Palpitations Narrative Narrative: 81-year-old male history of prior CABG, CAD, NJ in 1999 and hypertension. Also has Parkinson's and has gallbladder removed. States the last several days the last several weeks he has had more frequent exertional nonexertional chest pain with increased use of his nitroglycerin which does resolve his pain. States he used nitroglycerin 4 times today for chest pain. Each time improving. Denies any recent cardiac catheterization. He is on Plavix. Prior Similar Symptoms: Yes Recent Illness/Hospitalization: No CVD Risk Factors: Positive for Hypertension; Negative for Diabetes or Smoking PE Risk Factors: Negative for Recent Travel/Surgery, Recent Immobilization, Prior DVT or PE, Cancer or OCP + Smoking + >/=35 TAD Risk Factors: Negative for Marfan's Syndrome [facility] Medical History (Updated 02/13/22 @ 19:[address] Shanique Bolaños, ) Atherosclerosis of coronary artery of [place] heart with stable angina pectoris Atrial arrhythmia Essential hypertension History of hiatal hernia History of non-ST elevation myocardial infarction (NSTEMI) Hyperlipidemia RITCHIE (obstructive sleep apnea) Parkinson disease Sinus bradycardia Thrombocytopenia Home Medications aspirin 81 mg chewable tablet 81 mg PO DAILY heart 09/18/13 [History Last Taken 09/01/19 09:00] omeprazole 40 mg capsule,delayed release 20 mg PO DAILY PRN gastric reflux 12/24/19 [History Last Taken Unknown] Automated BP monitor #1 ea 08/22/20 [Rx Last Taken Unknown] nitroglycerin 0.4 mg sublingual tablet 0.4 mg sublingual Q5-15M PRN chest pain #100 tabs 05/04/21 [Rx Last Taken Unknown] ranolazine 1,000 mg tablet,extended release,12 hr 1,000 mg PO BID Check with primary doctor #180 tabs 11/02/21 [Rx Last Taken Unknown] clopidogrel 75 mg tablet 75 mg PO DAILY heart #90 tabs 12/16/21 [Rx Last Taken Unknown] carbidopa 10 mg-levodopa 100 mg tablet 1 tab PO QHS 02/13/22 [History Last Taken Unknown] isosorbide dinitrate 40 mg tablet 40 mg PO TID 02/13/22 [History Last Taken Unknown] Allergy/AdvReac Type Severity Reaction Status Date / Time Bbsqzrp-WEW-WcQ Reductase AdvReac Severe Unknown Verified 03/31/21 15:01 Inhibitor [Uzcnxzo-Vxb-Rtp Reductase Inhibitor] carvedilol AdvReac Intermediate Severe Verified 03/31/21 15:01 dizziness with higher doses erythromycin base AdvReac Mild stomach Verified 03/31/21 15:01 problems Family History Father , age 60 Myocardial infarction Mother , age 74 CVA (cerebral vascular accident) Brother CAD (coronary artery disease) Sister Colon cancer Sister Cancer thyroid Sister , open heart surgery Heart disease Surgical History History of cardiac catheterization History of cardiac radiofrequency ablation (~1991) History of cholecystectomy History of cholecystectomy Postsurgical aortocoronary bypass status (~04/18/00) Social History Smoking Status: Never smoker alcohol intake: never substance use type: does not use caffeine: Yes Type: coffee Number of servings: 1 ROS ROS ED ROS Narrative Chest pain Review of Systems ROS Unobtainable: Denies due to encephalopathy Constitutional Constitutional ED: Denies chills or fever(s) Eyes Eyes: Reports none ENT ENT ED: Denies ear pain Cardiovascular Cardiovascular: Reports as per HPI and chest pain Respiratory/Chest Respiratory/Chest: Reports dyspnea; Denies cough Gastrointestinal Gastrointestinal: Denies abdominal pain Genitourinary Genitourinary ED: Denies dysuria or hematuria Musculoskeletal Musculoskeletal: Denies arthralgias Integumentary Denies abscess Neurologic Neurologic: Denies headache(s) Psychiatric Psychiatric: Denies anxiety Endocrine Endocrinology: Denies cold intolerance Hematologic/Lymphatic Hematologic/Lymphatic: Denies easy bleeding Allergic/Immunologic Allergic/Immunologic ED: Denies mouth swelling EXAM Physical Exam Narrative Exam Narrative: 81-year-old male vital signs stable afebrile. Initial blood pressure 99/66. Pulse ox 90% room air no signs hypoxia. Afebrile. He does not look septic or toxic. He is no distress. H EENT exam unremarkable. Neck nontender. Lungs clear to auscultation. Heart regular rhythm rate about 85 with 4/6 systolic ejection murmur. Abdomen soft nontender. Moving all 4 extremities. Calves nontender without edema or cords. Chest wall nontender. Neurologically is awake alert with no focal motor deficits. Const Vital Signs: 02/13/22 16:43 02/13/22 16:43 02/13/22 16:53 Temperature 97.4 F L 97.4 F L Temperature Source Temporal Temporal Pulse Rate 84 88 Respiratory Rate 18 18 Respiratory Effort Normal Non-Labored Blood Pressure 99/66 99/66 Blood Pressure Mean 77 77 Pulse Ox 99 99 Oxygen Delivery Method Room Air Room Air 02/13/22 17:19 02/13/22 17:43 02/13/22 18:06 Temperature Temperature Source Pulse Rate 85 84 Respiratory Rate 16 Respiratory Effort Blood Pressure 104/74 104/74 Blood Pressure Mean 84 Pulse Ox 98 Oxygen Delivery Method Room Air Room Air 02/13/22 18:46 Temperature 97.4 F L Temperature Source Temporal Pulse Rate 84 Respiratory Rate 19 H Respiratory Effort Blood Pressure 95/72 Blood Pressure Mean 79 Pulse Ox 95 Oxygen Delivery Method Room Air Positive well nourished and well developed; Negative for obese, cachectic, contractures or unkempt General Appearance ED: well developed and NAD; Negative for unkempt, cachectic, contractures or pallor Nutritional Appearance: Negative for cachectic or obese HEENT Reports moist mucous membranes normocephalic and atraumatic; Negative for trauma or tenderness Eyes PERRL and EOMs intact bilaterally General Eye ED: Negative for pale conjunctiva or scleral icterus Neck no lymphadenopathy, supple and no JVD General: Negative for tenderness Chest Wall inspection of chest normal and palpation of chest normal Chest: Negative for tenderness Resp normal respiratory effort and clear to auscultation bilaterally Effort and Inspection: Negative for respiratory distress Auscultation: Negative for rales, rhonchi or wheezes Cardio regular rate, regular rhythm, S1 normal heart sound and S2 normal heart sound; Negative for no murmurs GI normal to inspection, nondistended, normoactive bowel sounds, soft to palpation, non-tender, non-distended and no masses Auscultation: Negative for hyperactive bowel sounds Palpation: Negative for splenomegaly Back/Spine no CVA tenderness and no thoracic nor lumbar tenderness General Back: Negative for CVA tenderness Cervical Spine: Negative for cervical spine tenderness Extremity normal to inspection General Extremety ED: Negative for edema General Extremity: Negative for edema Neuro oriented x3 Sensorium / Orientation: awake, alert, oriented to person, oriented to place and oriented to time; Negative for confused or lethargic Motor Exam: strength 5/5 throughout Psych mental status grossly normal Appearance: Negative for unkempt Attitude: No agitated Mood & Affect: Negative for depressed, anxious or tearful Skin no rashes or lesions noted and no wounds General Skin Exam: Negative for jaundice or pallor Rashes: No rashes noted Trauma: Negative for abrasion Heart Score History: Highly Suspicious ECG: Normal Age: >/= 65 years Risk Factors: >/= 3 Risk Factors or History of CAD Score: 6 MDM MDM MDM Narrative Medical decision making narrative: 81-year-old with increased chest pain and sounds like unstable angina. He has a known history of cardiac disease. Go undergo cardiac work-up and be admitted Patient's labs are consistent with a non-ST elevation NJ. He had recurrent pain we gave him nitro paste. The hospitalist is on page for admission. Dr. Lisa Bolaños will admit the patient in the PCU. I spoke to Dr. Hemanth Barlow of cardiology and patient will be started on a nitro drip and heparin bolus and drip. Will be given a fluid bolus with pressures running around 100. Multiple repeat exams 805 his pain is not improving. Hospitalist saw him. He was given heparin bolus and drip. Is he has been hypotensive. Customer Account Administrator is in the room seeing him there and taken to the Consulting Services Project Manager for chest pain elevated troponin for further evaluation. Lab Data Attestation: I reviewed the patient's lab results. Lab results narrative: CBC H&H of 14.3 and 42. Platelets are low at 123. Chemistries show a gap of 8 BUN/creatinine are 20 and 0.9. Glucose 102. First troponin is 992. Consistent with a non-ST elevation NJ. Labs: Laboratory Results - last 24 hr 02/13/22 02/13/22 02/13/22 17:00 17:00 17:00 WBC 6.4 RBC 4.32 L Hgb 14.3 Hct 42.7 MCV 98.8 H MCH 33.1 H MCHC 33.5 RDW Std Deviation 48.7 H RDW Coeff of Ronal 13.5 Plt Count 123 L MPV 10.7 Immature Gran % (Auto) 0.200 Neut % (Auto) 71.7 H Lymph % (Auto) 17.4 L [place] % (Auto) 9.3 Eos % (Auto) 0.9 Baso % (Auto) 0.5 Absolute Neuts (auto) 4.6 Absolute Lymphs (auto) 1.12 Nucleated RBC % 0 PT 15.9 H INR 1.3 APTT 39.5 H Sodium 141 Potassium 4.1 Chloride 108 H Carbon Dioxide 25.0 Anion Gap 8 BUN 20 H Creatinine 0.96 Estim Creat Clear Calc 70.16 Est GFR (MDRD) Af Amer 97 Est GFR (MDRD) Non-Af 80 BUN/Creatinine Ratio 20.8 H Glucose 102 Calcium 9.0 Troponin I High Sens 992 H* Radiography Chest X-Ray - ED: 1 View, Read by ED Physician, Read by Radiologist, Normal, Heart, Lungs, Mediastinum, Bony Structures, No Acute Disease and Chronic Changes Diagnostic Testing: Clinical Impression(s) from Imaging Studies Chest X-Ray 02/13/22 17:32 IMPRESSION: Degenerative changes, as described above. No demonstrated acute cardiopulmonary process. No major interval change. Electronically Signed: Moi Frank DO at 17:50 EDT Reading Location ID and State: [address] [place] [address] Tel [phone], Service support , Chest x-ray portable, single view interpreted both by myself and radiologist shows chronic changes no acute process. Normal cardiac silhouette. Rhythm Strip Rhythm Strip: Sinus Rhythm Rate: 88 Ectopy: None EKG Initial EKG: Attestation: I personally reviewed and interpreted this EKG as follows: Interpretation: Sinus Rhythm and No Acute Injury Pattern Comments: Sinus rhythm rate 88. Nonspecific interventricular conduction delay. No signs of acute NJ. Follow-up EKG: Attestation: I personally reviewed and interpreted this EKG as follows: Interpretation: Sinus Rhythm and No Acute Injury Pattern Comments: Repeat EKG at 6:35 PM shows a sinus rhythm first-degree AV block with parable 210 and frequent PVCs. No signs of ST elevation. Chronic left bundle branch block. Prior EKG tracings: available for review Prior: Unchanged Critical Care Time Critical Care Time: Yes Critical care time (excluding procedures): 30-74 minutes, Including time spent:, Discussing w/Patient &/or Family/Medical Delivery Technician, Discussing w/Consultants, Arranging Admission or Transfer, Performing Direct Patient Care at Bedside and - (32 minutes) Discharge Plan Dx/Rx/DC Orders Clinical Impression: Chest pain, Angina pectoris, unstable, History of NJ (myocardial infarction), History of coronary artery bypass graft, Non-ST elevated myocardial infarction Disposition Disposition: Acute Care Hospital [facility]
[2022-02-13] MEDS: Nitroglycerin Oint 1 INCH PACKET TD (18:06)
[2022-02-13 18:12] LABS: Anion Gap 8 (5-15); BUN 20 mg/dL (7-18); BUN/Creat Ratio 20.8 RATIO (10-20); Chloride 108 mmol/L (98-107); Creatinine, Serum 0.96 mg/dL (0.70-1.30); EST Glomerular Filtration Rate 80 mL/min (>60); Est Glom Filt Rate - Afr Amer 97 mL/min (>60); Estimated Creatinine Clearance 70.16 ml/min; Glucose 102 mg/dL (74-106); Potassium 4.1 mmol/L (3.5-5.1); Sodium Level 141 mmol/L (136-145); Troponin-I HS (w/2H Reflex) 992 pg/mL (3.0-78.0)
--- NOTE | 2022-02-13 18:47 | EKG12_ITS ---
Test Reason : CP Blood Pressure : / mmHG Vent. Rate : 084 BPM Atrial Rate : 084 BPM P-R Int : 210 ms QRS Dur : 132 ms QT Int : 408 ms P-R-T Axes : 031 -31 139 degrees QTc Int : 482 ms Sinus rhythm with 1st degree A-V block with frequent Premature ventricular complexes Left axis deviation Left bundle branch block Abnormal ECG Confirmed by JORDON NAVARRO, NALLELY ([id number]), food editor ZOILA LEACH ([id number]) on 02/16/2022 12:56:28 PM Referred By: YESSICA Confirmed By:NALLELY RUVALCABA MD
--- NOTE | 2022-02-13 19:18 | HP.PCM.HOS_ITS ---
HPI - General General Date of Admission: 02/13/22 Date of Service: 02/13/22 Chief Complaint: Chest pain HPI Narrative MAKENZIE HILL, is a 81 M who presented to the emergency department [facility] on 02/13/2022 with a chief complaint of chest pain. The patient reports that he had a quadruple bypass done in 1999 and overall has been doing fairly well since that point time however he began suffering from chest pain approximately 2 days ago that was predominantly exertional. He reports has been hauling wood and he would get worsening chest pain while he was doing so. He indicates he taken nitroglycerin and his symptoms would get better so then he go back to his activities. It is however documented in the ER notes that he had complained to them about chest pain that had been progressively worsening over the last couple weeks. He utilized nitroglycerin 4 times on the day of admission and had been using nitroglycerin periodically for the last 2 days prior. He follows with Dr. Grace at baseline. He indicates he has had some nausea associated but the pain is predominantly in his center chest and is pressure in nature and fairly severe. He denies any associated diaphoresis or lightheadedness but does complain of some associated dyspnea. His vital signs on presentation show a temperature of 97.4, pulse of 84, blood pressure was 99/66, respiratory rate is 18 and oxygen saturation is 99% on room air. His CBC is overall unremarkable other than thrombocytopenia which appears chronic in nature when compared to previous labs. His basic metabolic profile is unremarkable. Coags were pending on admission. His initial troponin was 992. Chest x-ray shows degenerative changes but no acute cardiopulmonary process and no interval change since previous. His initial EKG showed normal sinus rhythm with a nonspecific intraventricular conduction delay and some nonspecific T wave changes and a first-degree AV block which is baseline. Since he is presenting with an NSTEMI the case was discussed with cardiology and they recommend initiation of a nitroglycerin drip as he is having ongoing chest pain as well as a heparin drip. He was bolused in the emergency department with 1 L of IV fluids as his blood pressures have been soft. Plan is for admission to PCU stepdown service and follow-up with cardiology. [facility] Medical History (Updated 02/13/22 @ 19:[address] Shanique Bolaños DO) Atherosclerosis of coronary artery of [place] heart with stable angina pectoris Atrial arrhythmia Essential hypertension History of hiatal hernia History of non-ST elevation myocardial infarction (NSTEMI) Hyperlipidemia RITCHIE (obstructive sleep apnea) Parkinson disease Sinus bradycardia Thrombocytopenia Home Medications aspirin 81 mg chewable tablet 81 mg PO DAILY heart 09/18/13 [History Last Taken 09/01/19 09:00] omeprazole 40 mg capsule,delayed release 20 mg PO DAILY PRN gastric reflux 12/24/19 [History Last Taken Unknown] Automated BP monitor #1 ea 08/22/20 [Rx Last Taken Unknown] nitroglycerin 0.4 mg sublingual tablet 0.4 mg sublingual Q5-15M PRN chest pain #100 tabs 05/04/21 [Rx Last Taken Unknown] ranolazine 1,000 mg tablet,extended release,12 hr 1,000 mg PO BID Check with primary doctor #180 tabs 11/02/21 [Rx Last Taken Unknown] clopidogrel 75 mg tablet 75 mg PO DAILY heart #90 tabs 12/16/21 [Rx Last Taken Unknown] carbidopa 10 mg-levodopa 100 mg tablet 1 tab PO QHS 02/13/22 [History Last Taken Unknown] isosorbide dinitrate 40 mg tablet 40 mg PO TID 02/13/22 [History Last Taken Unknown] Allergy/AdvReac Type Severity Reaction Status Date / Time Bcqguue-ARQ-EgC Reductase AdvReac Severe Unknown Verified 03/31/21 15:01 Inhibitor [Migsbtz-Imq-Oaj Reductase Inhibitor] carvedilol AdvReac Intermediate Severe Verified 03/31/21 15:01 dizziness with higher doses erythromycin base AdvReac Mild stomach Verified 03/31/21 15:01 problems Family History Father , age 60 Myocardial infarction Mother , age 74 CVA (cerebral vascular accident) Brother CAD (coronary artery disease) Sister Colon cancer Sister Cancer thyroid Sister , open heart surgery Heart disease Surgical History History of cardiac catheterization History of cardiac radiofrequency ablation (~1991) History of cholecystectomy History of cholecystectomy Postsurgical aortocoronary bypass status (~04/18/00) Social History Smoking Status: Never smoker alcohol intake: never substance use type: does not use caffeine: Yes Type: coffee Number of servings: 1 ROS Constitutional Constitutional: Reports weakness; Denies anorexia, change in weight, chills, fatigue, fever(s), malaise, night sweats or other Eyes Eyes: Denies blurry vision, change in eye color, change in vision, discharge from eye(s), double vision, erythema, eye pain, loss of vision or other ENT HEENT: Reports abnormal hearing and hearing loss; Denies dysphagia, ear pain, epistaxis, headache(s), nasal congestion, nasal discharge, post nasal drip, sinus pressure, sore throat or other Cardiovascular Cardiovascular: Reports chest pain and dyspnea on exertion; Denies claudication, edema, lightheadedness, orthopnea, palpitations, paroxysmal nocturnal dyspnea, rapid heart rate, syncope or other Respiratory/Chest Respiratory/Chest: Reports dyspnea; Denies cough, excessive phlegm production, hemoptysis, productive cough, shortness of breath at rest, shortness of breath with exertion, wheezing or other Gastrointestinal Gastrointestinal: Denies abdominal pain, coffee ground emesis, constipation, diarrhea, dyspepsia, hematemesis, hematochezia, loose stools, melena, nausea, vomiting or other Genitourinary Genitourinary: Reports difficulty urinating and urinary hesitancy; Denies burning urination, dysuria, hematuria, nocturia, urinary frequency, urinary incontinence, urinary urgency or other Musculoskeletal Musculoskeletal: Denies arthralgias, back pain, joint pain, joint stiffness, joint swelling, myalgias, neck pain or other Neurologic Neurologic: Reports tremor(s); Denies abnormal gait, abnormal speech, confusion, disequilibrium, dizziness, focal weakness, headache(s), numbness, paresthesias, seizure-like activity, seizures, syncope, tingling or other Psychiatric Psychiatric: Denies anxiety, depression, homicidal ideation, suicidal ideation or other Endocrine Endocrinology: Denies change in body appearance, cold intolerance, excessive sweating, heat intolerance, polydipsia, polyuria or other Hematologic/Lymphatic Hematologic/Lymphatic: Denies anemia, easy bleeding, easy bruising, lymphadenopathy or other Allergic/Immunologic Allergic/Immunologic: Denies rhinitis, hives, eczemia, asthma or other Vital Signs Vital Signs Vital Signs: 02/13/22 16:43 02/13/22 16:43 02/13/22 16:53 Temperature 97.4 F L 97.4 F L Temperature Source Temporal Temporal Pulse Rate 84 88 Respiratory Rate 18 18 Respiratory Effort Normal Non-Labored Blood Pressure 99/66 99/66 Blood Pressure Mean 77 77 Pulse Ox 99 99 Oxygen Delivery Method Room Air Room Air 02/13/22 17:19 02/13/22 17:43 02/13/22 18:06 Temperature Temperature Source Pulse Rate 85 84 Respiratory Rate 16 Respiratory Effort Blood Pressure 104/74 104/74 Blood Pressure Mean 84 Pulse Ox 98 Oxygen Delivery Method Room Air Room Air 02/13/22 18:46 Temperature 97.4 F L Temperature Source Temporal Pulse Rate 84 Respiratory Rate 19 H Respiratory Effort Blood Pressure 95/72 Blood Pressure Mean 79 Pulse Ox 95 Oxygen Delivery Method Room Air Weight Weight: 86.581 kg Body Mass Index (BMI) 24.5 Physical Exam Const alert, oriented x3 and well nourished Constitutional Narrative: Elderly white male sitting up in bed, appears somewhat uncomfortable however not in any distress at the time of my evaluation, nontoxic appearing, at bedside, patient is having ongoing chest pain General Appearance: cooperative HEENT normocephalic, head/scalp atraumatic and moist oral mucous membranes HEENT Narrative: Mallampati 2, no thrush, moderate hearing loss Eyes PERRL, EOMs intact bilaterally and conjunctivae normal Eyes Narrative: No scleral icterus Neck no lymphadenopathy, supple, no JVD and no carotid bruits Neck Narrative: Trachea midline, no thyroid enlargement Resp normal respiratory effort, no retractions, no use of accessory muscles and clear to auscultation bilaterally Auscultation: Negative for crackles, rales, rhonchi or wheezes Cardio regular rate, regular rhythm, S1 normal heart sound, S2 normal heart sound, no rub, no gallops, no clicks and no JVD Cardio Narrative: 3/6 systolic murmur loudest at right upper sternal border, few ectopic beats not ed GI normal to inspection, nondistended, normoactive bowel sounds, soft to palpation and non-tender; Negative for hepatosplenomegaly Extremity no clubbing, cyanosis or edema Extremity Narrative: 2+ pedal pulses Neuro oriented x3, CN's II-XII intact bilaterally, moves all extremities and no focal motor deficits Neuro Narrative: Mild resting tremor noted Sensorium / Orientation: awake, alert, oriented to person, oriented to place and oriented to time Speech: speech normal Psych affect normal Psych Narrative: Very pleasant affect is somewhat flat Results Lab / Micro Data Result Diagrams: 02/13/22 17:00 02/13/22 17:00 Labs: Laboratory Results - last 24 hr 02/13/22 17:00: WBC 6.4, RBC 4.32 L, Hgb 14.3, Hct 42.7, MCV 98.8 H, MCH 33.1 H, MCHC 33.5, RDW Std Deviation 48.7 H, RDW Coeff of Ronal 13.5, Plt Count 123 L, MPV 10.7, Immature Gran % (Auto) 0.200, Neut % (Auto) 71.7 H, Lymph % (Auto) 17.4 L, [place] % (Auto) 9.3, Eos % (Auto) 0.9, Baso % (Auto) 0.5, Absolute Neuts (auto) 4.6, Absolute Lymphs (auto) 1.12, Nucleated RBC % 0 02/13/22 17:00: Sodium 141, Potassium 4.1, Chloride 108 H, Carbon Dioxide 25.0, Anion Gap 8, BUN 20 H, Creatinine 0.96, Estim Creat Clear Calc 70.16, Est GFR (MDRD) Af Amer 97, Est GFR (MDRD) Non-Af 80, BUN/Creatinine Ratio 20.8 H, Glucose 102, Calcium 9.0, Troponin I High Sens 992 H* Rhythm Strip Rhythm Strip: Sinus Rhythm Rate: 88 Ectopy: None Radiology Impression Chest X-Ray 02/13/22 17:32 IMPRESSION: Degenerative changes, as described above. No demonstrated acute cardiopulmonary process. No major interval change. Electronically Signed: Moi Frank DO at 17:50 EDT Reading Location ID and State: [address] [place] [address] Tel [phone], Service support , Assessment & Plan Assessment/Plan (1) NSTEMI (non-ST elevated myocardial infarction): (2) Chest pain: PLAN: Plan NSTEMI -Patient is having ongoing chest pain -Symptoms have been relieved by sublingual nitro intermittently -EKG with nonspecific ST-T wave changes -Initial troponin elevated -Blood pressures are soft with his most recent being 88/67 will hold home antihypertensives -1 L bolus given by the emergency department -Nitro drip as tolerated -Patient will be n.p.o. -Heparin drip -Continue home aspirin and Plavix -Continue home Ranexa -Patient is intolerant of statins -Check a.m. lipids -Cardiology is consulted and they are aware -Discussed the case with cardiology and they plan on taking to the Security Guard Supervisor this evening Mild thrombocytopenia -Looks to be chronic when compared to most recent labs -We will continue to monitor CAD -status post CABG x4 in 1999 -TAVAREZ to LAD, reverse SVG to CX, SVG to 2 branches on right -See above Hypertension -Current blood pressures are low therefore we will hold antihypertensives GERD -Continue home omeprazole Parkinson's disease -Continue home carbidopa levodopa Hyperlipidemia -Patient with statin intolerance -We will check lipids DVT prophylaxis -Patient will be on a heparin drip CODE STATUS -CODE STATUS discussed on admission and patient elects for DNR CCA without intubation, is at bedside during this conversation Charges/Coding Visit Charges Inpatient E&M: 00014 Init Hosp L3
[2022-02-13 19:24] LABS: Reflex Troponin-HS? (from REC) Y
[2022-02-13 19:41] LABS: International Normalized Ratio 1.3; Prothrombin Time (Protime)PT. 15.9 SECONDS (11.7-14.9)
[2022-02-13 19:42] LABS: Partial Thromboplast Time 39.5 Seconds (24.1-36.2)
--- NOTE | 2022-02-13 19:45 | NURSING ---
Fentanol 75mg wasted Ileana Kaplan RN. Unable to waste in Accudose.
[2022-02-13] MEDS: fentaNYL 100 MCG/2 ML Ampul 25 MCG IV (19:48)
[2022-02-13] MEDS: Ondansetron 4 MG/2 ML Vial IV (19:59)
--- NOTE | 2022-02-13 20:08 | PCM.CONS.C ---
Assessment & Plan Assessment/Plan (1) NSTEMI (non-ST elevated myocardial infarction): PLAN: He presents with a non-ST elevation myocardial infarction and mild hypotension. My recommendation at this time would be to proceed with a left heart catheterization. The risk benefits alternatives have been explained to him he understands and agrees to proceed and depending on the findings further recommendations will be made. Addendum: Cardiac catheterization demonstrated severe triple-vessel disease noted as follows: Distal on left main with 99% stenosis. Ostial LAD totally occluded. Ostial circumflex artery totally occluded. Dominant right coronary artery with mid 99% stenosis. Saphenous vein graft to right coronary artery with proximal 95% stenosis and distal vessel with 60% diffuse stenosis. Saphenous vein graft to circumflex artery sequential which is totally occluded. Left internal mammary artery to the left anterior descending artery which is patent with distal vessel with 50% stenosis. Left ventricular function not assessed. Based on the above angiographic findings and the fact that the patient was noted to be in cardiogenic shock and intra-aortic balloon pump was placed via the right femoral artery. The patient was then conferred with the interventionalists and a decision to proceed with salvage PCI performed. During the procedure the patient was noted to have multiple episodes of ventricular fibrillation requiring defibrillation, and patient also required intubation and a temporary pacemaker was also placed. The interventional record to be dictated under separate cover. The patient family was updated. And the patient's condition was noted to be guarded. Family expressed understanding. Patient is noted to be a DNR CCA (2) Atherosclerosis of coronary artery of [place] heart with stable angina pectoris: QUALIFIERS: Coronary Disease-Associated Artery/Lesion type: [place] artery Qualified Code(s): I25.118 - Atherosclerotic heart disease of [place] coronary artery with other forms of angina pectoris PLAN: He does have atherosclerotic cardiovascular disease as noted above status post coronary bypass surgery in 1999 with a TAVAREZ to the LAD saphenous vein graft to the circumflex artery and to the right coronary artery. This to be further evaluated with a cardiac catheterization. (3) Essential hypertension: PLAN: He does have a history of hypertension however his blood pressure at this time appears to be low, and essentially in cardiogenic shock (4) Hyperlipidemia: QUALIFIERS: Hyperlipidemia type: unspecified Qualified Code(s): E78.5 - Hyperlipidemia, unspecified PLAN: We will continue with aggressive risk factor modification. HPI Consult Data Date of Consult: 02/13/22 HPI Narrative HPI Narrative: MAKENZIE HILL, is a 81 M who presents to the emergency department [facility] on 02/13/2022 with a chief complaint of chest pain.? The patient reports that he had a quadruple bypass done in 1999 with a left internal mammary artery to the left anterior descending artery, saphenous vein graft to circumflex artery and 2 to posterior descending arteries. And has been following with his primary farmer [employer] Dr. Lev Grace. He states that he has been doing fairly well since that point time however he began suffering from chest pain approximately 2 days ago that was predominantly exertional.? He reports has been hauling wood and he would get worsening chest pain while he was doing so.? He indicates he taken nitroglycerin and his symptoms would get better so then he go back to his activities.? He thinks this has been going on for the last few weeks. He had taken 4 nitroglycerin on the day of admission and has been using nitroglycerin periodically for the last 2 days. The chest pain got significantly worse and so he presented to the emergency room. He has had no diaphoresis or lightheadedness but has had some shortness of breath. On presentation to the emergency room he was noted to be mildly hypotensive and his cardiac enzymes were abnormal. His EKG demonstrated normal sinus rhythm with frequent premature ventricular complexes but no acute changes. The original plan was to admit him to the progressive care unit per the ED hospitalist plan. However as he continued to have chest discomfort which appeared to be unrelenting, after consultation with me it was decided that we should take him directly to the cardiac catheterization lab. [facility] Medical History (Updated 02/13/22 @ 19:[address] Shanique Bolaños, ) Atherosclerosis of coronary artery of [place] heart with stable angina pectoris Atrial arrhythmia Essential hypertension History of hiatal hernia History of non-ST elevation myocardial infarction (NSTEMI) Hyperlipidemia RITCHIE (obstructive sleep apnea) Parkinson disease Sinus bradycardia Thrombocytopenia Home Medications aspirin 81 mg chewable tablet 81 mg PO DAILY heart 09/18/13 [History Last Taken 09/01/19 09:00] omeprazole 40 mg capsule,delayed release 20 mg PO DAILY PRN gastric reflux 12/24/19 [History Last Taken Unknown] Automated BP monitor #1 ea 08/22/20 [Rx Last Taken Unknown] nitroglycerin 0.4 mg sublingual tablet 0.4 mg sublingual Q5-15M PRN chest pain #100 tabs 05/04/21 [Rx Last Taken Unknown] ranolazine 1,000 mg tablet,extended release,12 hr 1,000 mg PO BID Check with primary doctor #180 tabs 11/02/21 [Rx Last Taken Unknown] clopidogrel 75 mg tablet 75 mg PO DAILY heart #90 tabs 12/16/21 [Rx Last Taken Unknown] carbidopa 10 mg-levodopa 100 mg tablet 1 tab PO QHS 02/13/22 [History Last Taken Unknown] isosorbide dinitrate 40 mg tablet 40 mg PO TID 02/13/22 [History Last Taken Unknown] Allergy/AdvReac Type Severity Reaction Status Date / Time Xzbbvut-XWE-CbC Reductase AdvReac Severe Unknown Verified 03/31/21 15:01 Inhibitor [Svyawcn-Cmw-Cny Reductase Inhibitor] carvedilol AdvReac Intermediate Severe Verified 03/31/21 15:01 dizziness with higher doses erythromycin base AdvReac Mild stomach Verified 03/31/21 15:01 problems Family History Father , age 60 Myocardial infarction Mother , age 74 CVA (cerebral vascular accident) Brother CAD (coronary artery disease) Sister Colon cancer Sister Cancer thyroid Sister , open heart surgery Heart disease Surgical History History of cardiac catheterization History of cardiac radiofrequency ablation (~1991) History of cholecystectomy History of cholecystectomy Postsurgical aortocoronary bypass status (~04/18/00) Social History Smoking Status: Never smoker alcohol intake: never substance use type: does not use caffeine: Yes Type: coffee Number of servings: 1 ROS Constitutional Constitutional: Denies fever(s) or weight loss Eyes Eyes: Reports systems reviewed and no addt'l complaints, except as documented ENT HEENT: Reports systems reviewed and no addt'l complaints, except as documented Cardiovascular Cardiovascular: Reports chest pain at rest, chest pain with activity and dyspnea on exertion; Denies dyspnea at rest, edema, palpitations or paroxysmal nocturnal dyspnea Respiratory/Chest Respiratory/Chest: Reports dyspnea on exertion; Denies productive cough, shortness of breath at rest or shortness of breath with exertion Gastrointestinal Gastrointestinal: Denies change in bowel habits, nausea, vomiting or weight changes Genitourinary Genitourinary: Denies difficulty urinating Musculoskeletal Musculoskeletal: Denies joint stiffness or muscle weakness Integumentary Integumentary: Denies lesions Neurologic Neurologic: Denies dizziness or syncope Psychiatric Psychiatric: Denies anxiety Endocrine Endocrinology: Denies excessive sweating or fatigue Hematologic/Lymphatic Hematologic/Lymphatic: Denies anemia Allergic/Immunologic Allergic/Immunologic: Denies seasonal rhinorrhea Physical Exam Const alert, oriented x3 and no apparent distress General Appearance: cooperative HEENT hearing grossly normal bilaterally Head and Scalp: atraumatic Eyes EOMs intact bilaterally Neck General: normal visual inspection Chest inspection of chest normal and palpation of chest normal Resp normal respiratory effort Auscultation: clear to auscultation bilaterally Cardio regular rate, regular rhythm, S1 normal heart sound and S2 normal heart sound Jugular Venous Distention: JVD GI normal to inspection, nondistended, normoactive bowel sounds Extremity normal capillary refill and no pedal edema Peripheral Pulses: Yes pulses 2+ throughout and femoral pulses present Skin no rashes or lesions noted Neuro oriented x3 and CN's II-XII intact bilaterally Psych Appearance: grossly normal and appropriate Risk Stratification Risk Stratification Applicable: Yes Age >/= 65: Yes >/= 3 CAD Risk Factors (HTN, HLD, DM, family hx of CAD, or current smoker): Yes Aspirin Use in the Past 7 Days: Yes Severe Angina (>/= episodes in 24 hours): Yes EKG ST Changes >/= 0.5mm: No Positive Cardiac Marker: Yes QUENTIN Risk Stratification Score: 5 QUENTIN % Risk: 25% Risk Objective Data Vital Signs: Vital Signs Temp Pulse Resp BP Pulse Ox O2 Del Method 97.4 F L 84 19 H 95/72 95 Room Air 02/13/22 18:46 02/13/22 18:46 02/13/22 18:46 02/13/22 18:46 02/13/22 18:46 02/13/22 18:46 Oxygen Delivery Method Room Air Weight: 190 lb 14.052 oz Body Mass Index (BMI) 24.5 Intake & Output: Intake and Output for Last 24 Hours 02/11/22 02/12/22 02/13/22 23:59 23:59 23:59 Intake Total 500 / 500 Balance 500 / 500 Lab / Micro Data Result Diagrams: 02/13/22 17:00 02/13/22 17:00 Labs: Laboratory Results - last 24 hr 02/13/22 17:00: WBC 6.4, RBC 4.32 L, Hgb 14.3, Hct 42.7, MCV 98.8 H, MCH 33.1 H, MCHC 33.5, RDW Std Deviation 48.7 H, RDW Coeff of Ronal 13.5, Plt Count 123 L, MPV 10.7, Immature Gran % (Auto) 0.200, Neut % (Auto) 71.7 H, Lymph % (Auto) 17.4 L, [place] % (Auto) 9.3, Eos % (Auto) 0.9, Baso % (Auto) 0.5, Absolute Neuts (auto) 4.6, Absolute Lymphs (auto) 1.12, Nucleated RBC % 0 02/13/22 17:00: Sodium 141, Potassium 4.1, Chloride 108 H, Carbon Dioxide 25.0, Anion Gap 8, BUN 20 H, Creatinine 0.96, Estim Creat Clear Calc 70.16, Est GFR (MDRD) Af Amer 97, Est GFR (MDRD) Non-Af 80, BUN/Creatinine Ratio 20.8 H, Glucose 102, Calcium 9.0, Troponin I High Sens 992 H* 02/13/22 17:00: PT 15.9 H, INR 1.3, APTT 39.5 H Rhythm Strip Rhythm Strip: Sinus Rhythm Rate: 88 Ectopy: None Cardiology Labs/Tests 02/13/22 17:00: WBC 6.4, RBC 4.32 L, Hgb 14.3, Hct 42.7, MCV 98.8 H, MCH 33.1 H, MCHC 33.5, Plt Count 123 L, MPV 10.7, Immature Gran % (Auto) 0.200, Neut % (Auto) 71.7 H, Lymph % (Auto) 17.4 L, [place] % (Auto) 9.3, Eos % (Auto) 0.9, Baso % (Auto) 0.5, Absolute Neuts (auto) 4.6, Nucleated RBC % 0 02/13/22 17:00: Sodium 141, Potassium 4.1, Chloride 108 H, Carbon Dioxide 25.0, Anion Gap 8, BUN 20 H, Creatinine 0.96, Est GFR (MDRD) Af Amer 97, Est GFR (MDRD) Non-Af 80, BUN/Creatinine Ratio 20.8 H, Glucose 102, Calcium 9.0 02/13/22 17:00: PT 15.9 H, INR 1.3, APTT 39.5 H Rhythm: EKG: ECHO: Stress Test: Cardiac Cath: PCI: CT Surgery: Holter monitor: EPS: PPM: CXR: Chest CT Scan: Radiography Diagnostic Testing: Radiology Impression Chest X-Ray 02/13/22 17:32 IMPRESSION: Degenerative changes, as described above. No demonstrated acute cardiopulmonary process. No major interval change. Electronically Signed: Moi Frank DO at 17:50 EDT , He had a cardiac catheterization performed at [facility] on 09/18/2013 SUMMARY: Left ventricle: Systolic function was mildly reduced with an LVEF of 45-50% Left main coronary artery with proximal 80% stenosis LAD with mid 60% stenosis and distal 100% stenosis with the mid vessel demonstrating a 90% stenosis proximal to the TAVAREZ anastomosis The first diagonal branch had an 80% stenosis The LCx had a 100% stenosis The first OM had a proximal 70% stenosis and was well protected from an SVG graft to OM1 The RCA had a mid 100% stenosis and was partially protected from an SVG graft to the PDA however the proximal limb of the sequential bypass into the acute marginal branch was occluded
[2022-02-13 20:25] LABS: Troponin-I HS 931 pg/mL (3.0-78.0)
[2022-02-13 21:36] LABS: Base Excess -4 mmol/L (-2 to +2); Bicarbonate 21.4 mmol/L (22-26); Blood Gas Specimen Type ART; PO2 133 mmHG (75-100); SO2 99 % (95-99); Total Carbon Dioxide 23 mmol/L; pCO2 37.3 mmHg (35-45); pH 7.37 (7.35-7.45)
--- NOTE | 2022-02-13 22:15 | CL.D_ITS ---
Patient Name: MAKENZIE HILL Study Date: 02/13/2022 Performing: Hemanth Barlow MD Ht: 74 inches 187.96 cm : 1940 Wt: 190.88 lbs 86.58 kg Age: 81 Gender: male BSA: 2.13 PROCEDURE(S) PERFORMED [id number])LHC/COR/CABG CLINICAL PROFILE AND INDICATIONS Indications: Suspected CAD, Worsening Angina Heart Failure: None Stress/Imaging Stress/Image Study Performed: No CONCLUSIONS Severe triple-vessel disease with patent TAVAREZ going to a small distal vessel and a high-grade right coronary saphenous vein graft lesion and occluded saphenous vein graft to circumflex artery RECOMMENDATIONS Referred for immediate PCI IABP placed DESCRIPTION OF PROCEDURE The patient arrived to the procedure lab. The risks and benefits of the procedure as well as a full description of our services here and current unavailability of surgical backup were fully explained to the patient and/or their significant other prior to the catheterization. The Timeout was completed, verifying the correct patient and procedure. The patient's procedural site was prepped and draped in the usual fashion. Local anesthetic was given subcutaneously to right groin region with Lidocaine 2%. Using a modified Seldinger technique, arterial access was obtained via the right femoral artery, a 5Fr sheath was inserted. Left Coronary Artery selective angiography was performed in multiple views using a 5 Fr. JL4 catheter. Right Coronary Artery selective angiography was then performed in multiple views using a 5 Fr. 3DRC (Lalo) catheter. Saphenous Vein graft to the Circumflex selective angiography was performed in multiple views using a 5 Fr. JL4 catheter. Saphenous Vein graft to the RCA selective angiography was performed in multiple views using a 5 Fr. 3DRC (Lalo) CORONARY ANGIOGRAPHY DOMINANCE: Right Dominant LEFT HEART ASSESSMENT Left Ventricular Ejection Fraction: Not assessed Cardiogenic shock noted and therefore intra-aortic balloon pump placed LEFT MAIN: Distal 99% LEFT ANTERIOR DESCENDING ARTERY: OSTIAL LAD: is occluded DISTAL LAD: Moderate luminal irregularities up to 50% CIRCUMFLEX ARTERY: OSTIAL CIRC: is occluded RIGHT CORONARY ARTERY: MID RCA: is occluded RT PDA: Mid - Diffusely diseased up to 60 % GRAFTS: TAVAREZ graft to the Mid LAD is patent Saphenous Vein graft to the RPDA has a proximal lesion of 95 % Sequential graft to the Circumflex artery is totally occluded COMPLICATIONS PROCEDURE MEDICATIONS Oxygen: 2 L/min via nasal cannula Amiodarone 300 mg IV @ 02/13/2022 21:59:20 Neosynephrine 2 mg IV 02/13/2022 20:45:14 SUMMARY OF HEMODYNAMIC DATA Time AIR REST ECG 20:14:36 AO 72/55 (63) SA 20:25:52 AO 110/72 (88) 21:10:36 AO 97/57 (71) 21:15:59 AO 56/29 (41) 21:18:31 Signed By Hemanth Barlow MD On 02/13/2022 22:21:21 Signed By Hemanth Barlow MD On 02/13/2022 22:14:28 Hemanth Barlow MD
--- NOTE | 2022-02-13 22:28 | PN.HOSP_ITS ---
Hospitalist Note Patient during cardiac catheterization had multiple episodes of V. fib requiring defibrillation, intubation and temporary pacemaker placement with CODE BLUE called. Patient started during procedure on amiodarone drip and norepinephrine. Cardiac catheterization with distal on left main with 99% stenosis, ostial LAD totally occluded, ostial circumflex artery totally occluded, dominant RCA mid 99% stenosis, saphenous vein graft to right coronary artery with proximal 95% stenosis in distal vessel with 60% diffuse stenosis, saphenous vein graft circumflex artery sequential totally occluded, left internal mammary artery to the left anterior descending artery patent with distal vessel 50% stenosis. Patient given presentation and findings per cardiology was noted to be in cardiogenic shock and an intra-aortic balloon pump was placed via the right femoral artery. Given findings Dr. Serrano, cardiology interventionalist was brought in and decision to proceed with salvage PCI was performed. Altered transfer orders placed upon patient presentation to include ventilation orders although patient currently is not requiring any sedation which is a concern. Requested tax form preparer consult as well. Per discussion with Dr. Barlow did add amiodarone drip and continued norepinephrine drip in addition added vasopressin in case necessary per discussion with ICU's nursing staff. Awaiting final Interventionalist note for procedure description.
--- NOTE | 2022-02-13 23:09 | EKG12_ITS ---
Test Reason : AM EKG Blood Pressure : / mmHG Vent. Rate : 111 BPM Atrial Rate : 111 BPM P-R Int : 192 ms QRS Dur : 130 ms QT Int : 356 ms P-R-T Axes : -12 -45 094 degrees QTc Int : 484 ms Suspect unspecified pacemaker failure Sinus tachycardia with occasional ventricular-paced complexes Left axis deviation Left bundle branch block Abnormal ECG When compared with ECG of 14-FEB-2022 01:28, MANUAL COMPARISON REQUIRED, DATA IS UNCONFIRMED Confirmed by JORDON NAVARRO, NALLELY ([id number]), fan mail editor ZOILA LEACH ([id number]) on 02/16/2022 1:07:48 PM Referred By: ANAI Confirmed By:NALLELY RUVALCABA MD
[2022-02-13] MEDS: Amiodarone 360 MG in Dextrose 5% Viaflo Bag 192.8 ML 33.3 MG CONT INF (23:30)
[2022-02-13] MEDS: Famotidine 200 MG/20 ML MDV 20 MG in 0.9% Normal Saline (Pres. free 8 ML 300 MG IV (23:43)
[2022-02-13] MEDS: 0.9% Saline Lock 10 ML Syringe IV ×2 (23:43→23:56)
[2022-02-13] MEDS: HEPARIN/D5w 25,000 UNITS 25,000 UNITS/250 ML IV.SOLN. 8 UNITS CONT INF (23:50)
[2022-02-13] MEDS: Midazolam 2 MG/2 ML Syringe IV (23:56)
[2022-02-14] VITALS (53 sets, daily range): BP systolic 69–132; BP diastolic 40–90; PULSE 83–122; RESP 10–20; TEMP 36.1–37.5; O2SAT 95–100
[2022-02-14 01:16] LABS: Base Excess -10 mmol/L (-2 to +2); Bicarbonate 16.7 mmol/L (22-26); Blood Gas Specimen Type ART; FI02 100; Mode AC; O2 Delivery Device Adult Vent; PEEP 5; PO2 325 mmHG (75-100); RR 14; SITE Art Line; SO2 100 % (95-99); Total Carbon Dioxide 18 mmol/L; Vt 500; pCO2 35.4 mmHg (35-45); pH 7.28 (7.35-7.45)
[2022-02-14 01:41] LABS: Hematocrit 43.1 % (40-54); Hemoglobin 14.1 g/dL (13.0-16.5); Mean Corp Hgb Conc 32.7 g/dL (32-36); Mean Corpuscular Hgb 32.6 pg (27.0-32.0); Mean Corpuscular Volume 99.8 fL (80-94); Platelet Count 174 K/mm3 (150-450); RBC Distribution Width SD 51.8 fl (35.1-43.9); Red Blood Count 4.32 M/mm3 (4.6-6.2); White Blood Count 18.4 K/mm3 (4.4-11.0)
[2022-02-14 01:57] LABS: CPK Total, Creatine Kinase 798 U/L (39-308); Triglycerides 85 mg/dL
[2022-02-14 02:15] LABS: Troponin-I HS 14912 pg/mL (3.0-78.0)
--- NOTE | 2022-02-14 03:25 | CPS ---
Critical PO2 results read back to Dr. Cronin
[2022-02-14] MEDS: Sodium Bicarbonate 8.4% 50 ML Syringe 50 MEQ IV (03:41)
[2022-02-14] MEDS: 0.9% Saline Lock 10 ML Syringe IV ×3 (03:41→17:49)
[2022-02-14] MEDS: Propofol 10MG/Ml 1,000 MG/100 ML Bottle 5.2 MG CONT INF (04:00)
--- NOTE | 2022-02-14 05:40 | CON.PCM.CC_ITS ---
Assessment & Plan Assessment/Plan (1) Respiratory failure: PLAN: Plan RECOMMENDATIONS: 1. Continue assist-control mode mechanical ventilation. Wean FiO2/PEEP for saturations greater than 90%. 2. Propofol/fentanyl for sedation. 3. Continue amiodarone, Integrilin and heparin per cardiology. 4. Continue Levophed to maintain a mean arterial pressure at or above 65 mmHg. 5. Continue appropriate GI prophylaxis. IMPRESSIONS: 1. Acute hypoxemic respiratory failure status post V. fib cardiac arrest/cardiogenic shock The patient has a known history of coronary disease status post CABG in 1999. He presented with chest pain and underwent cardiac catheterization with salvage PCI. Ultimately, the patient suffered a V. fib cardiac arrest during his catheterization. ROSC was eventually achieved and the patient was started on amiodarone and Levophed. Salvage PCI was performed. Post procedure, the patient was transferred to the medical intensive care unit. He is currently doing well from a respiratory perspective on assist control mode mechanical ventilation. Plan to continue current supportive measures and wean FiO2 and PEEP for saturations greater than 90%. Continue propofol and fentanyl for sedation. Continue Levophed to maintain a mean arterial pressure at or above 65 mmHg. Intra-aortic balloon pump management per cardiology recommendations. 2. History of Parkinson's disease/GERD/hypertension/hyperlipidemia Complicates care, management, recovery and prognosis. Continue to hold home antihypertensives. Supportive measures as noted above. TIME: 34 minutes of critical care time, independent of procedures, was spent addressing the patient's acute hypoxemic respiratory failure, V. fib cardiac arrest, cardiogenic shock, review of all data and collaboration with the care team. HPI Consult Data Date of Consult: 02/14/22 HPI Narrative Reason for Consultation: Acute hypoxemic respiratory failure HPI Narrative: The patient is a 81-year-old male, with a history as outlined below, who presented to the emergency department on February 13 with chest pain. The patient has a known history of coronary artery disease status post CABG in 1999. History pertinent to his hospitalization was obtained primarily via chart review, as the patient is currently intubated and there is no family available at the bedside. The patient was apparently experiencing progressively worsening exertional chest pain over the 2 days leading up to his hospitalization. He did utilize nitroglycerin with some improvement. On presentation to the emergency department, the patient was noted to be afebrile and hemodynamically stable. He was maintaining appropriate oxygen saturations on room air. Initial laboratory evaluation revealed an elevated white blood cell count 18,000. Chemistry profile was unrevealing. Troponin was elevated at 992. Chest x-ray demonstrated no acute cardiopulmonary process. Given that his presentation was consistent with a non-ST segment elevation NV, cardiology was consulted. Following their initial evaluation, the patient was taken for cardiac catheteri zation on the evening of February 13. Severe triple-vessel disease was noted. During his cardiac catheterization, the patient experienced V. fib cardiac arrest requiring defibrillation, intubation and temporary pacemaker placement. Salvage PCI was performed. The patient was started on an amiodarone infusion. An intra-aortic balloon pump was also placed. He was subsequently transferred to the medical intensive care unit for further management. [facility] Medical History (Updated 02/14/22 @ 05:[address] Vipin Morelos, ) Atherosclerosis of coronary artery of [place] heart with stable angina pectoris Atrial arrhythmia Essential hypertension History of hiatal hernia History of non-ST elevation myocardial infarction (NSTEMI) Hyperlipidemia RITCHIE (obstructive sleep apnea) Parkinson disease Sinus bradycardia Thrombocytopenia Home Medications aspirin 81 mg chewable tablet 81 mg PO DAILY heart 09/18/13 [History Last Taken 09/01/19 09:00] omeprazole 40 mg capsule,delayed release 20 mg PO DAILY PRN gastric reflux 12/24/19 [History Last Taken Unknown] Automated BP monitor #1 ea 08/22/20 [Rx Last Taken Unknown] nitroglycerin 0.4 mg sublingual tablet 0.4 mg sublingual Q5-15M PRN chest pain # 100 tabs 05/04/21 [Rx Last Taken Unknown] ranolazine 1,000 mg tablet,extended release,12 hr 1,000 mg PO BID Check with primary doctor #180 tabs 11/02/21 [Rx Last Taken Unknown] clopidogrel 75 mg tablet 75 mg PO DAILY heart #90 tabs 12/16/21 [Rx Last Taken Unknown] carbidopa 10 mg-levodopa 100 mg tablet 1 tab PO QHS 02/13/22 [History Last Taken Unknown] isosorbide dinitrate 40 mg tablet 40 mg PO TID 02/13/22 [History Last Taken Unknown] Allergy/AdvReac Type Severity Reaction Status Date / Time Gwjnzls-YJI-PpN Reductase AdvReac Severe Unknown Verified 03/31/21 15:01 Inhibitor [Lxkqwym-Jdd-Xyo Reductase Inhibitor] carvedilol AdvReac Intermediate Severe Verified 03/31/21 15:01 dizziness with higher doses erythromycin base AdvReac Mild stomach Verified 03/31/21 15:01 problems Family History Father , age 60 Myocardial infarction Mother , age 74 CVA (cerebral vascular accident) Brother CAD (coronary artery disease) Sister Colon cancer Sister Cancer thyroid Sister , open heart surgery Heart disease Surgical History History of cardiac catheterization History of cardiac radiofrequency ablation (~1991) History of cholecystectomy History of cholecystectomy Postsurgical aortocoronary bypass status (~04/18/00) Social History Smoking Status: Never smoker alcohol intake: never substance use type: does not use caffeine: Yes Type: coffee Number of servings: 1 ROS Review of Systems ROS Unobtainable: due to endotracheal tube Physical Exam Const no apparent distress General Appearance: intubated and patient mechanically ventilated HEENT normocephalic and head/scalp atraumatic Mouth: endotracheal tube in place and OG tube in place Eyes PERRL and EOMs intact bilaterally Neck supple General: trachea midline Chest inspection of chest normal Resp normal respiratory effort Auscultation: Negative for rales, rhonchi or wheezes Cardio S1 normal heart sound and S2 normal heart sound Cardio Narrative: Paced rhythm. Intra-aortic balloon pump in place. Rate: tachycardic Heart Sounds: murmur GI normal to inspection, nondistended, normoactive bowel sounds Extremity no clubbing, cyanosis or edema Skin no rashes or lesions noted Neuro Sensorium / Orientation: sedated on vent Lab / Micro Data Result Diagrams: 02/13/22 17:00 02/13/22 17:00 Labs: Laboratory Results - last 24 hr 02/13/22 00:55: WBC 18.4 H, RBC 4.32 L, Hgb 14.1, Hct 43.1, MCV 99.8 H, MCH 32.6 H, MCHC 32.7, RDW Std Deviation 51.8 H, RDW Coeff of Ronal 14.0, Plt Count 174, MPV 11.0 02/13/22 17:00: WBC 6.4, RBC 4.32 L, Hgb 14.3, Hct 42.7, MCV 98.8 H, MCH 33.1 H, MCHC 33.5, RDW Std Deviation 48.7 H, RDW Coeff of Ronal 13.5, Plt Count 123 L, MPV 10.7, Immature Gran % (Auto) 0.200, Neut % (Auto) 71.7 H, Lymph % (Auto) 17.4 L, [place] % (Auto) 9.3, Eos % (Auto) 0.9, Baso % (Auto) 0.5, Absolute Neuts (auto) 4.6, Absolute Lymphs (auto) 1.12, Nucleated RBC % 0 02/13/22 17:00: Sodium 141, Potassium 4.1, Chloride 108 H, Carbon Dioxide 25.0, Anion Gap 8, BUN 20 H, Creatinine 0.96, Estim Creat Clear Calc 70.16, Est GFR (MDRD) Af Amer 97, Est GFR (MDRD) Non-Af 80, BUN/Creatinine Ratio 20.8 H, Glucose 102, Calcium 9.0, Troponin I High Sens 992 H* 02/13/22 17:00: PT 15.9 H, INR 1.3, APTT 39.5 H 02/13/22 19:35: Troponin I High Sens 931 H* 02/14/22 00:55: Total Creatine Kinase 798 H, Triglycerides 85 02/14/22 00:55: Troponin I High Sens 70269 H* ABG Data ABG results: ABG 02/13/22 02/14/22 21:27 01:08 Specimen Type ART ART Sample Site Art Line pH 7.37 7.28 L Bicarbonate Actual 21.4 L 16.7 L Total CO2 23 18 Base Excess -4 L -10 L O2 Saturation 99 100 H O2 % 100 ABG pCO2 37.3 35.4 ABG pO2 133 H 325 H* Rj Test N/A Respiration Rate 14 O2 Delivery Device Adult Vent Vent Mode AC Tidal Volume 500 POC PEEP 5 Crit Call To/Read Back Yes Rhythm Strip Rhythm Strip: Sinus Rhythm Rate: 88 Ectopy: None Radiology Impression Chest X-Ray 02/13/22 17:32 IMPRESSION: Degenerative changes, as described above. No demonstrated acute cardiopulmonary process. No major interval change. Electronically Signed: Moi Frank DO at 17:50 EDT Reading Location ID and State: [facility] / [place] Tel [phone], Service support , Charges/Coding Procedures Hospitalists Procedures: [id number] Critial Care 1st Hr
--- NOTE | 2022-02-14 05:55 | RAD_ITS ---
STUDY: X-RAY CHEST REASON FOR EXAM: Male, 81 years old. Portable -- Verify balloon position TECHNIQUE: Single AP portable view of the chest. COMPARISON: February 13, 2022 chest x-ray FINDINGS: The endotracheal tube is present 5.6 cm above the vaughn. An NG tube is not visualized. There is a hazy opacified appearance of the lung bases. Sternal cerclage wires are present from a prior sternotomy. Normal mediastinum and lisa. Normal visualized pulmonary arteries. Aorta is tortuous. The balloon pump marker is not well visualized. There is a faintly visualized tubular structure within the left of midline aorta. There are diffuse degenerative changes of the visualized thoracic spine. Normal visualized ribs, clavicles, and shoulders. There is no demonstrated abnormality of the visualized soft tissue structures of the upper abdomen. RAD/Chest 1 View (Portable) IMPRESSION: A trachea tube slightly high, could be advanced 2 cm. Findings suspicious for moderate to large bilateral effusions atelectasis. Status post sternotomy. The marker for the balloon pump is not well-visualized. Recommend repeating the study with improved technique. There is a suggestion of a catheter attending caliber line projects over the left side of the heart, 9 cm from the arch. A typical marker is not seen. Electronically Signed: Ryann Lucia MD at 6:04 EDT ,
[2022-02-14 06:13] LABS: Absolute Lymphocyte Count 0.83 X10^3/uL (0.83-4.51); Absolute Neutrophil Count 16.5 X10^3/uL (2.0-7.7); Basophil# 0.03 X10^3/uL; Basophil% 0.2 % (0-1); Hematocrit 41.5 % (40-54); Hemoglobin 13.8 g/dL (13.0-16.5); Lymphocyte # 0.83 X10^3/ul (0.83-4.51); Lymphocyte % 4.3 % (19-41); Mean Corp Hgb Conc 33.3 g/dL (32-36); Mean Corpuscular Hgb 32.5 pg (27.0-32.0); Mean Corpuscular Volume 97.9 fL (80-94); Mean Platelet Vol. 10.6 fl (6.2-12.0); Monocyte# 1.79 X10^3/uL; Monocyte% 9.3 % (0-10); NRBC Flagged by Analyzer 0 % (0-5); Neutrophil # 16.46 X10^3/uL (2.7-7.7); Neutrophil % 85.6 % (47-70); POSITIVE DIFFERENTIAL YES; Platelet Count 173 K/mm3 (150-450); RBC Distribution Width CV 14.1 % (11.6-14.6); RBC Distribution Width SD 50.4 fl (35.1-43.9); Red Blood Count 4.24 M/mm3 (4.6-6.2); White Blood Count 19.2 K/mm3 (4.4-11.0)
[2022-02-14 06:24] LABS: Differential Indicated SCAN CRITERIA MET
[2022-02-14 06:27] LABS: International Normalized Ratio 1.6; Prothrombin Time (Protime)PT. 18.7 SECONDS (11.7-14.9)
[2022-02-14 06:33] LABS: Partial Thromboplast Time 147.3 Seconds (24.1-36.2)
[2022-02-14] MEDS: Amiodarone 360 MG in Dextrose 5% Viaflo Bag 192.8 ML 16.7 MG CONT INF (06:54)
[2022-02-14 06:57] LABS: Differential Comment SCANNED
[2022-02-14 07:16] LABS: Phosphorus 3.8 mg/dL (2.5-4.9)
[2022-02-14 07:36] LABS: ALB/GLOB Ratio 1.1 RATIO (0.9-2.4); AST(SGOT) 396 U/L (15-37); Alanine Aminotransfer ALT/SGPT 166 U/L (16-61); Albumin, Serum 2.7 g/dL (3.2-5.0); Alkaline Phosphatase 79 U/L (45-117); Anion Gap 12 (5-15); BUN 25 mg/dL (7-18); BUN/Creat Ratio 19.4 RATIO (10-20); Calcium,Total 8.1 mg/dL (8.5-10.1); Chloride 111 mmol/L (98-107); Cholesterol 154 mg/dL (200); Creatinine, Serum 1.29 mg/dL (0.70-1.30); EST Glomerular Filtration Rate 57 mL/min (>60); Est Glom Filt Rate - Afr Amer 69 mL/min (>60); Estimated Creatinine Clearance 52.22 ml/min; Globulin 2.4 g/dL (2.2-4.2); Glucose 158 mg/dL (74-106); High Density Lipoprotein 41 mg/dL; Magnesium 1.8 mg/dL (1.6-2.6); Potassium 4.1 mmol/L (3.5-5.1); Protein, Total 5.1 g/dL (6.4-8.2); Sodium Level 141 mmol/L (136-145); Thyroid Stim Hormone (TSH) 1.36 uIU/mL (0.358-3.74); Triglycerides 107 mg/dL; Very Low Density Lipoprotein 21 mg/dL (5-40)
[2022-02-14] MEDS: Chlorhexidine 15 ML PO (08:22)
--- NOTE | 2022-02-14 09:17 | PCM.PN.HOSP ---
Subjective Subjective Notes from last evening reviewed. Patient went to the [facility] and unfortunately developed V. fib arrest during the procedure which required intubation and temporary pacer placement. He remains intubated and sedated with balloon pump in place for cardiogenic shock. Patient was initially nonresponsive without sedation however he is starting to wake up some. On minimal vent settings. Objective Data Objective Data Vital Signs: Vital Signs Temp Pulse Resp BP Pulse Ox O2 Del Method FiO2 98.7 F 100 14 80/65 L 97 Mechanical Ventilator 30 02/14/22 08:00 02/14/22 08:00 02/14/22 08:00 02/14/22 08:00 02/14/22 08:00 02/14/22 08:00 02/14/22 08:00 Oxygen Delivery Method Mechanical Ventilator Weight: 88.5 kg Body Mass Index (BMI) 24.5 Intake & Output: Intake and Output for Last 24 Hours 02/12/22 02/13/22 02/14/22 23:59 23:59 23:59 Intake Total 517.03 / 526.56 603.66 / 603.66 Output Total 305 / 305 Balance 517.03 / 351.56 298.66 / 298.66 Lab / Micro Data Result Diagrams: 02/14/22 06:00 02/14/22 06:00 Labs: Laboratory Results - last 24 hr 02/13/22 00:55: WBC 18.4 H, RBC 4.32 L, Hgb 14.1, Hct 43.1, MCV 99.8 H, MCH 32.6 H, MCHC 32.7, RDW Std Deviation 51.8 H, RDW Coeff of Ronal 14.0, Plt Count 174, MPV 11.0 02/13/22 17:00: WBC 6.4, RBC 4.32 L, Hgb 14.3, Hct 42.7, MCV 98.8 H, MCH 33.1 H, MCHC 33.5, RDW Std Deviation 48.7 H, RDW Coeff of Ronal 13.5, Plt Count 123 L, MPV 10.7, Immature Gran % (Auto) 0.200, Neut % (Auto) 71.7 H, Lymph % (Auto) 17.4 L, [place] % (Auto) 9.3, Eos % (Auto) 0.9, Baso % (Auto) 0.5, Absolute Neuts (auto) 4.6, Absolute Lymphs (auto) 1.12, Nucleated RBC % 0 02/13/22 17:00: Sodium 141, Potassium 4.1, Chloride 108 H, Carbon Dioxide 25.0, Anion Gap 8, BUN 20 H, Creatinine 0.96, Estim Creat Clear Calc 70.16, Est GFR (MDRD) Af Amer 97, Est GFR (MDRD) Non-Af 80, BUN/Creatinine Ratio 20.8 H, Glucose 102, Calcium 9.0, Troponin I High Sens 992 H* 02/13/22 17:00: PT 15.9 H, INR 1.3, APTT 39.5 H 02/13/22 19:35: Troponin I High Sens 931 H* 02/14/22 00:55: Total Creatine Kinase 798 H, Triglycerides 85 02/14/22 00:55: Troponin I High Sens 76440 H* 02/14/22 06:00: PT 18.7 H, INR 1.6, APTT 147.3 H* 02/14/22 06:00: Sodium 141, Potassium 4.1, Chloride 111 H, Carbon Dioxide 18.0 L, Anion Gap 12, BUN 25 H, Creatinine 1.29, Estim Creat Clear Calc 52.22, Est GFR (MDRD) Af Amer 69, Est GFR (MDRD) Non-Af 57 L, BUN/Creatinine Ratio 19.4, Glucose 158 H, Calcium 8.1 L, Magnesium 1.8, Total Bilirubin 2.30 H, AST 396 H, ALT 166 H, Alkaline Phosphatase 79, Total Protein 5.1 L, Albumin 2.7 L, Globulin 2.4, Albumin/Globulin Ratio 1.1, Triglycerides 107, Cholesterol 154, LDL Cholesterol 92, VLDL Cholesterol 21, HDL Cholesterol 41, TSH 1.36 02/14/22 06:00: Phosphorus 3.8 02/14/22 06:00: WBC 19.2 H, RBC 4.24 L, Hgb 13.8, Hct 41.5, MCV 97.9 H, MCH 32.5 H, MCHC 33.3, RDW Std Deviation 50.4 H, RDW Coeff of Ronal 14.1, Plt Count 173, MPV 10.6, Immature Gran % (Auto) 0.600, Neut % (Auto) 85.6 H, Lymph % (Auto) 4.3 L, [place] % (Auto) 9.3, Eos % (Auto) 0.0, Baso % (Auto) 0.2, Absolute Neuts (auto) 16.5 H, Absolute Lymphs (auto) 0.83, Nucleated RBC % 0, Differential Comment SCANNED, Diff Path Review May ABG Data ABG results: ABG 02/13/22 02/14/22 21:27 01:08 Specimen Type ART ART Sample Site Art Line pH 7.37 7.28 L Bicarbonate Actual 21.4 L 16.7 L Total CO2 23 18 Base Excess -4 L -10 L O2 Saturation 99 100 H O2 % 100 ABG pCO2 37.3 35.4 ABG pO2 133 H 325 H* Rj Test N/A Respiration Rate 14 O2 Delivery Device Adult Vent Vent Mode AC Tidal Volume 500 POC PEEP 5 Crit Call To/Read Back Yes Radiography Diagnostic Testing: Radiology Impression Chest X-Ray 02/13/22 17:32 IMPRESSION: Degenerative changes, as described above. No demonstrated acute cardiopulmonary process. No major interval change. Electronically Signed: Moi Frank DO at 17:50 EDT Reading Location ID and State: [facility] / [place] Tel [phone], Service support , Chest X-Ray 02/14/22 05:55 IMPRESSION: A trachea tube slightly high, could be advanced 2 cm. Findings suspicious for moderate to large bilateral effusions atelectasis. Status post sternotomy. The marker for the balloon pump is not well-visualized. Recommend repeating the study with improved technique. There is a suggestion of a catheter attending caliber line projects over the left side of the heart, 9 cm from the arch. A typical marker is not seen. Electronically Signed: Ryann Lucia MD at 6:04 EDT , Rhythm Strip Rhythm Strip: Sinus Rhythm Rate: 88 Ectopy: None Physical Exam Const Constitutional Narrative: Elderly white male lying in bed, intubated and sedated, balloon pump in place, nursing at bedside HEENT normocephalic, head/scalp atraumatic and moist oral mucous membranes HEENT Narrative: ET tube in oropharynx/OG in oropharynx Eyes PERRL and conjunctivae normal Eyes Narrative: No scleral icterus, pupils approximately 6 mm and reactive to light Resp no retractions, no use of accessory muscles and clear to auscultation bilaterally Resp Narrative: Currently on ventilator Auscultation: Negative for crackles, rales, rhonchi or wheezes Cardio regular rate, regular rhythm, S1 normal heart sound, S2 normal heart sound, no rub, no gallops, no clicks and no JVD Cardio Narrative: 3/6 systolic murmur loudest at right upper sternal border, few ectopic beats noted, balloon pump in place GI normal to inspection, nondistended, normoactive bowel sounds, soft to palpation and non-tender; Negative for hepatosplenomegaly Extremity no clubbing, cyanosis or edema Extremity Narrative: Pedal pulses are diminished, extremities are cool Skin Skin Narrative: Sheath right groin balloon pump left groin no marked oozing noted at sites Neuro Neuro Narrative: Difficult exam as patient is sedated and intubated Psych Psych Narrative: Able to evaluate as patient is intubated and sedated Assessment & Plan Assessment/Plan (1) NSTEMI (non-ST elevated myocardial infarction): (2) Acute respiratory failure, unspecified whether with hypoxia or hypercapnia: (3) Cardiogenic shock: (4) Leukocytosis: (5) Transaminitis: (6) Hyperbilirubinemia: (7) Hyperglycemia: PLAN: Plan Acute hypoxic respiratory failure status post V. fib arrest/cardiogenic shock -V. fib arrest in [facility] -ROSC achieved -Salvage PCI performed -Balloon pump in place -Remains on amiodarone, Integrilin, Levophed -Levophed is currently at 10 and maps are greater than 65 -Requiring minimal vent settings at this time -Vent management per pulmonary/critical care medicine NSTEMI -Taken to the [facility] on 02/13/2025 -Psych deferred from V. fib arrest during catheterization -Intubated and sedated -Pacemaker in place -Cardiogenic shock and balloon pump placed -PCI performed and awaiting cath report for specifics -Antihypertensives on hold as patient is currently requiring Levophed -Continue aspirin -Continue Plavix -Echocardiogram pending -Cholesterol obtained with a total cholesterol of 154/LDL 92/HDL 41--> patient not on statin as he has allergy Leukocytosis -Suspect reactive -Continue to monitor with repeat CBC in a.m. Mild thrombocytopenia -Resolved -Platelet count 173,000 Transaminitis -Suspect shock liver -AST is 396/ALT 166/bilirubin 2.3 -Repeat lab in a.m. -Should improve with time and improved hemodynamics Hyperglycemia -Fasting sugar this morning is 150 -Patient with documented history of diabetes however his last hemoglobin A1c was under 6 -Suspect the current elevation is related to stress response however if it stays elevated will obtain hemoglobin A1c -Continue to monitor for now CAD -status post CABG x4 in 1999 -TAVAREZ to LAD, reverse SVG to CX, SVG to 2 branches on right -See above Hypertension -Current blood pressures are low therefore we will hold antihypertensives GERD -Continue home omeprazole Parkinson's disease -Continue home carbidopa levodopa Hyperlipidemia -Patient with statin intolerance DVT prophylaxis -Patient is currently on Integrilin -Once this is discontinued and patient is off anticoagulants will start subcu Lovenox versus heparin depending on renal function CODE STATUS -CODE STATUS discussed on admission and patient elects for DNR CCA without intubation, is at bedside during this conversation -Patient was intubated and resuscitated as arrested occurred during cardiac catheterization -We will continue to closely monitor status and update family allow them to make decisions with regards on how to pursue further management aggressiveness Charges/Coding Visit Charges Inpatient E&M: 83736 Subs Hosp L2
[2022-02-14] MEDS: Famotidine 200 MG/20 ML MDV 20 MG in 0.9% Normal Saline (Pres. free 8 ML 300 MG IV (09:36)
--- NOTE | 2022-02-14 09:50 | NURSING ---
Yen at bedside removing temporary pacemaker
--- NOTE | 2022-02-14 10:00 | EKG12_ITS ---
Test Reason : POST PCI Blood Pressure : / mmHG Vent. Rate : 118 BPM Atrial Rate : 119 BPM P-R Int : 128 ms QRS Dur : 144 ms QT Int : 406 ms P-R-T Axes : 000 -47 081 degrees QTc Int : 569 ms Suspect unspecified pacemaker failure Sinus tachycardia with occasional ventricular-paced complexes Left axis deviation Left bundle branch block Abnormal ECG When compared with ECG of 02-SEP-2019 05:19, Electronic ventricular pacemaker has replaced Sinus rhythm Vent. rate has increased BY 50 BPM Confirmed by JORDON NAVARRO, NALLELY ([id number]), newspaper editor ZOILA LEACH ([id number]) on 02/16/2022 1:08:01 PM Referred By: ANAI Confirmed By:NALLELY RUVALCABA MD
--- NOTE | 2022-02-14 10:00 | EKG12_ITS ---
Test Reason : CP Blood Pressure : / mmHG Vent. Rate : 087 BPM Atrial Rate : 083 BPM P-R Int : 000 ms QRS Dur : 126 ms QT Int : 390 ms P-R-T Axes : 000 -70 183 degrees QTc Int : 469 ms Undetermined rhythm : Consider Atrial Fibrillation/Flutter Left axis deviation Non-specific intra-ventricular conduction block Nonspecific T wave abnormality Abnormal ECG Confirmed by KEVIN NAVARRO, ADONIS ([id number]), acquisitions editor ZOILA LEACH ([id number]) on 02/17/2022 9:18:36 AM Referred By: JESS Confirmed By:ADONIS BROWN MD
--- NOTE | 2022-02-14 10:01 | PCM.PN.CARD ---
Subjective Subjective Patient seen and evaluated this morning. Appears to be doing fairly well. Stable. Objective Data Vital Signs: Vital Signs Temp Pulse Resp BP Pulse Ox O2 Del Method FiO2 98.7 F 100 14 80/65 L 97 Mechanical Ventilator 30 02/14/22 08:00 02/14/22 08:00 02/14/22 08:00 02/14/22 08:00 02/14/22 08:00 02/14/22 08:00 02/14/22 08:00 Oxygen Delivery Method Mechanical Ventilator Weight: 195 lb 1.745 oz Body Mass Index (BMI) 24.5 Intake & Output: Intake and Output for Last 24 Hours 02/12/22 02/13/22 02/14/22 23:59 23:59 23:59 Intake Total 517.03 / 526.56 644.68 / 644.68 Output Total 335 / 335 Balance 517.03 / 351.56 309.68 / 309.68 Lab / Micro Data Result Diagrams: 02/14/22 06:00 02/14/22 06:00 Labs: Laboratory Results - last 24 hr 02/13/22 00:55: WBC 18.4 H, RBC 4.32 L, Hgb 14.1, Hct 43.1, MCV 99.8 H, MCH 32.6 H, MCHC 32.7, RDW Std Deviation 51.8 H, RDW Coeff of Ronal 14.0, Plt Count 174, MPV 11.0 02/13/22 17:00: WBC 6.4, RBC 4.32 L, Hgb 14.3, Hct 42.7, MCV 98.8 H, MCH 33.1 H, MCHC 33.5, RDW Std Deviation 48.7 H, RDW Coeff of Ronal 13.5, Plt Count 123 L, MPV 10.7, Immature Gran % (Auto) 0.200, Neut % (Auto) 71.7 H, Lymph % (Auto) 17.4 L, Kend[place] % (Auto) 9.3, Eos % (Auto) 0.9, Baso % (Auto) 0.5, Absolute Neuts (auto) 4.6, Absolute Lymphs (auto) 1.12, Nucleated RBC % 0 02/13/22 17:00: Sodium 141, Potassium 4.1, Chloride 108 H, Carbon Dioxide 25.0, Anion Gap 8, BUN 20 H, Creatinine 0.96, Estim Creat Clear Calc 70.16, Est GFR (MDRD) Af Amer 97, Est GFR (MDRD) Non-Af 80, BUN/Creatinine Ratio 20.8 H, Glucose 102, Calcium 9.0, Troponin I High Sens 992 H* 02/13/22 17:00: PT 15.9 H, INR 1.3, APTT 39.5 H 02/13/22 19:35: Troponin I High Sens 931 H* 02/14/22 00:55: Total Creatine Kinase 798 H, Triglycerides 85 02/14/22 00:55: Troponin I High Sens 37195 H* 02/14/22 06:00: PT 18.7 H, INR 1.6, APTT 147.3 H* 02/14/22 06:00: Sodium 141, Potassium 4.1, Chloride 111 H, Carbon Dioxide 18.0 L, Anion Gap 12, BUN 25 H, Creatinine 1.29, Estim Creat Clear Calc 52.22, Est GFR (MDRD) Af Amer 69, Est GFR (MDRD) Non-Af 57 L, BUN/Creatinine Ratio 19.4, Glucose 158 H, Calcium 8.1 L, Magnesium 1.8, Total Bilirubin 2.30 H, AST 396 H, ALT 166 H, Alkaline Phosphatase 79, Total Protein 5.1 L, Albumin 2.7 L, Globulin 2.4, Albumin/Globulin Ratio 1.1, Triglycerides 107, Cholesterol 154, LDL Cholesterol 92, VLDL Cholesterol 21, HDL Cholesterol 41, TSH 1.36 02/14/22 06:00: Phosphorus 3.8 02/14/22 06:00: WBC 19.2 H, RBC 4.24 L, Hgb 13.8, Hct 41.5, MCV 97.9 H, MCH 32.5 H, MCHC 33.3, RDW Std Deviation 50.4 H, RDW Coeff of Ronal 14.1, Plt Count 173, MPV 10.6, Immature Gran % (Auto) 0.600, Neut % (Auto) 85.6 H, Lymph % (Auto) 4.3 L, Kend[place] % (Auto) 9.3, Eos % (Auto) 0.0, Baso % (Auto) 0.2, Absolute Neuts (auto) 16.5 H, Absolute Lymphs (auto) 0.83, Nucleated RBC % 0, Differential Comment SCANNED, Diff Path Review May foll ABG Data ABG results: ABG 02/13/22 02/14/22 21:27 01:08 Specimen Type ART ART Sample Site Art Line pH 7.37 7.28 L Bicarbonate Actual 21.4 L 16.7 L Total CO2 23 18 Base Excess -4 L -10 L O2 Saturation 99 100 H O2 % 100 ABG pCO2 37.3 35.4 ABG pO2 133 H 325 H* Rj Test N/A Respiration Rate 14 O2 Delivery Device Adult Vent Vent Mode AC Tidal Volume 500 POC PEEP 5 Crit Call To/Read Back Yes Rhythm Strip Rhythm Strip: Sinus Rhythm Rate: 88 Ectopy: None Cardiology Labs/Tests 02/13/22 00:55: WBC 18.4 H, RBC 4.32 L, Hgb 14.1, Hct 43.1, MCV 99.8 H, MCH 32.6 H, MCHC 32.7, Plt Count 174, MPV 11.0 02/13/22 17:00: WBC 6.4, RBC 4.32 L, Hgb 14.3, Hct 42.7, MCV 98.8 H, MCH 33.1 H, MCHC 33.5, Plt Count 123 L, MPV 10.7, Immature Gran % (Auto) 0.200, Neut % (Auto) 71.7 H, Lymph % (Auto) 17.4 L, Kend[place] % (Auto) 9.3, Eos % (Auto) 0.9, Baso % (Auto) 0.5, Absolute Neuts (auto) 4.6, Nucleated RBC % 0 02/13/22 17:00: Sodium 141, Potassium 4.1, Chloride 108 H, Carbon Dioxide 25.0, Anion Gap 8, BUN 20 H, Creatinine 0.96, Est GFR (MDRD) Af Amer 97, Est GFR (MDRD) Non-Af 80, BUN/Creatinine Ratio 20.8 H, Glucose 102, Calcium 9.0 02/13/22 17:00: PT 15.9 H, INR 1.3, APTT 39.5 H 02/13/22 21:27: pH 7.37, Bicarbonate Actual 21.4 L, Base Excess -4 L, O2 Saturation 99, ABG pCO2 37.3, ABG pO2 133 H 02/14/22 00:55: Triglycerides 85 02/14/22 01:08: pH 7.28 L, Bicarbonate Actual 16.7 L, Base Excess -10 L, O2 Saturation 100 H, ABG pCO2 35.4, ABG pO2 325 H*, Rj Test N/A 02/14/22 06:00: PT 18.7 H, INR 1.6, APTT 147.3 H* 02/14/22 06:00: Sodium 141, Potassium 4.1, Chloride 111 H, Carbon Dioxide 18.0 L, Anion Gap 12, BUN 25 H, Creatinine 1.29, Est GFR (MDRD) Af Amer 69, Est GFR (MDRD) Non-Af 57 L, BUN/Creatinine Ratio 19.4, Glucose 158 H, Calcium 8.1 L, Magnesium 1.8, Total Bilirubin 2.30 H, Triglycerides 107, Cholesterol 154, LDL Cholesterol 92, VLDL Cholesterol 21, HDL Cholesterol 41 02/14/22 06:00: Phosphorus 3.8 02/14/22 06:00: WBC 19.2 H, RBC 4.24 L, Hgb 13.8, Hct 41.5, MCV 97.9 H, MCH 32.5 H, MCHC 33.3, Plt Count 173, MPV 10.6, Immature Gran % (Auto) 0.600, Neut % (Auto) 85.6 H, Lymph % (Auto) 4.3 L, Kend[place] % (Auto) 9.3, Eos % (Auto) 0.0, Baso % (Auto) 0.2, Absolute Neuts (auto) 16.5 H, Nucleated RBC % 0 Rhythm: EKG: ECHO: Stress Test: Cardiac Cath: PCI: CT Surgery: Holter monitor: EPS: PPM: CXR: Chest CT Scan: Radiography Diagnostic Testing: Radiology Impression Chest X-Ray 02/13/22 17:32 IMPRESSION: Degenerative changes, as described above. No demonstrated acute cardiopulmonary process. No major interval change. Electronically Signed: Moi Frank DO at 17:50 EDT Reading Location ID and State: [address] [place] [address] Tel [phone], Service support , Chest X-Ray 02/14/22 05:55 IMPRESSION: A trachea tube slightly high, could be advanced 2 cm. Findings suspicious for moderate to large bilateral effusions atelectasis. Status post sternotomy. The marker for the balloon pump is not well-visualized. Recommend repeating the study with improved technique. There is a suggestion of a catheter attending caliber line projects over the left side of the heart, 9 cm from the arch. A typical marker is not seen. Electronically Signed: Ryann Lucia MD at 6:04 EDT , Physical Exam Const Constitutional Narrative: Elderly white male lying in bed, intubated and sedated, balloon pump in place, nursing at bedside HEENT normocephalic, head/scalp atraumatic and moist oral mucous membranes HEENT Narrative: ET tube in oropharynx/OG in oropharynx Eyes PERRL and conjunctivae normal Eyes Narrative: No scleral icterus, pupils approximately 6 mm and reactive to light Resp no retractions, no use of accessory muscles and clear to auscultation bilaterally Resp Narrative: Currently on ventilator Auscultation: Negative for crackles, rales, rhonchi or wheezes Cardio regular rate, regular rhythm, S1 normal heart sound, S2 normal heart sound, no rub, no gallops, no clicks and no JVD Cardio Narrative: 3/6 systolic murmur loudest at right upper sternal border, few ectopic beats noted, balloon pump in place GI normal to inspection, nondistended, normoactive bowel sounds, soft to palpation and non-tender; Negative for hepatosplenomegaly Extremity no clubbing, cyanosis or edema Extremity Narrative: Pedal pulses are diminished, extremities are cool Skin Skin Narrative: Sheath right groin balloon pump left groin no marked oozing noted at sites Neuro Neuro Narrative: Difficult exam as patient is sedated and intubated Psych Psych Narrative: Able to evaluate as patient is intubated and sedated Assessment & Plan Assessment/Plan (1) NSTEMI (non-ST elevated myocardial infarction): PLAN: He presents with a non-ST elevation myocardial infarction and mild hypotension. Cardiac catheterization demonstrated severe triple-vessel disease noted as follows: Distal on left main with 99% stenosis. Ostial LAD totally occluded. Ostial circumflex artery totally occluded. Dominant right coronary artery with mid 99% stenosis. Saphenous vein graft to right coronary artery with proximal 95% stenosis and distal vessel with 60% diffuse stenosis. Saphenous vein graft to circumflex artery sequential which is totally occluded. Left internal mammary artery to the left anterior descending artery which is patent with distal vessel with 50% stenosis. Left ventricular function not assessed. Based on the above angiographic findings and the fact that the patient was noted to be in cardiogenic shock and intra-aortic balloon pump was placed via the right femoral artery. The patient was then conferred with the interventionalists and a decision to proceed with salvage PCI performed. Updated family on patient's condition this morning. The temporary pacemaker wire was removed. Patient remains on heparin, Integrilin, intra-aortic balloon pump at one-to-one. Plan will be to continue supportive management this morning with pressor agents and evaluated his ejection fraction in a.m. Patient family still understand that condition is rather guarded. (2) Atherosclerosis of coronary artery of [place] heart with stable angina pectoris: QUALIFIERS: Coronary Disease-Associated Artery/Lesion type: [place] artery Qualified Code(s): I25.118 - Atherosclerotic heart disease of [place] coronary artery with other forms of angina pectoris PLAN: He does have atherosclerotic cardiovascular disease as noted above status post coronary bypass surgery in 1999 with a TAVAREZ to the LAD saphenous vein graft to the circumflex artery and to the right coronary artery. This to be further evaluated with a cardiac catheterization. (3) Essential hypertension: PLAN: He does have a history of hypertension however his blood pressure at this time appears to be low, and essentially in cardiogenic shock, and still maintains intra-aortic balloon pump therapy. (4) Hyperlipidemia: QUALIFIERS: Hyperlipidemia type: unspecified Qualified Code(s): E78.5 - Hyperlipidemia, unspecified PLAN: We will continue with aggressive risk factor modification.
--- NOTE | 2022-02-14 10:50 | RAD_ITS ---
STUDY: X-RAY CHEST REASON FOR EXAM: Male, 81 years old. OG placement TECHNIQUE: Single frontal view of the chest. COMPARISON: 02/14/2022 at 5:34 AM FINDINGS: There are stable bibasilar hazy opacities. There is an enteric tube in place terminating within expected region of the gastric fundus. Sternal cerclage wires are present from a prior sternotomy. The cardiac silhouette is within normal limits. Normal mediastinum and ilsa. Normal visualized pulmonary arteries. Normal visualized aortic arch and descending thoracic aorta. Normal visualized thoracic spine. Normal visualized ribs, clavicles, and shoulders. There is no demonstrated abnormality of the visualized soft tissue structures of the upper abdomen. RAD/Chest 1 View (Portable) IMPRESSION: Enteric tube terminating within the expected region of the gastric fundus. Stable bilateral pleural effusions. Electronically Signed: Mariann Waters MD at 11:30 EDT ,
[2022-02-14] MEDS: Propofol 10MG/Ml 1,000 MG/100 ML Bottle 2.6 MG CONT INF (10:52)
--- NOTE | 2022-02-14 11:41 | NURSING ---
1000- Michael removed temp pacemaker from medial venous sheath, medial venous sheath remains in place. Levophed running via this sheath. Lateral venous sheath remains intact, propofol, fentanyl, and heparin running via this sheath. 1005- left fem dressing saturated, per michael remove dressing and place new with sandbag. 1015- Left fem dressing removed, site cleansed, new gauze and opsite placed. Right fem dressing removed, site cleansed, new gauze and opsite placed. Sites remain soft, no signs of hematoma, no bruising noted.
[2022-02-14] MEDS: TICAGRELOR 90 MG TABLET PO (12:39)
[2022-02-14] MEDS: Aspirin 81 MG TAB.CHEW PO (12:39)
[2022-02-14] MEDS: 0.9% Normal Saline 1,000 ML 75 ML IV (12:54)
[2022-02-14 14:38] LABS: Partial Thromboplast Time 78.3 Seconds (24.1-36.2)
[2022-02-14] MEDS: 0.9% Normal Saline 1,000 ML 125 ML IV (14:46)
[2022-02-14 16:11] LABS: Hematocrit 41.2 % (40-54); Hemoglobin 13.9 g/dL (13.0-16.5)
--- NOTE | 2022-02-14 17:21 | PCM.PN.CARD ---
Subjective Subjective Called to see patient. Family request Objective Data Vital Signs: Vital Signs Temp Pulse Resp BP Pulse Ox O2 Del Method FiO2 99.5 F H 92 14 106/59 L 96 Mechanical Ventilator 25 02/14/22 16:45 02/14/22 16:45 02/14/22 16:45 02/14/22 16:45 02/14/22 16:45 02/14/22 16:45 02/14/22 16:45 Oxygen Delivery Method Mechanical Ventilator Weight: 195 lb 1.745 oz Body Mass Index (BMI) 24.5 Intake & Output: Intake and Output for Last 24 Hours 02/12/22 02/13/22 02/14/22 23:59 23:59 23:59 Intake Total 517.03 / 526.56 1046.41 / 1046.41 Output Total 635 / 635 Balance 517.03 / 351.56 411.41 / 411.41 Lab / Micro Data Result Diagrams: 02/14/22 16:00 02/14/22 06:00 Labs: Laboratory Results - last 24 hr 02/13/22 00:55: WBC 18.4 H, RBC 4.32 L, Hgb 14.1, Hct 43.1, MCV 99.8 H, MCH 32.6 H, MCHC 32.7, RDW Std Deviation 51.8 H, RDW Coeff of Ronal 14.0, Plt Count 174, MPV 11.0 02/13/22 17:00: WBC 6.4, RBC 4.32 L, Hgb 14.3, Hct 42.7, MCV 98.8 H, MCH 33.1 H, MCHC 33.5, RDW Std Deviation 48.7 H, RDW Coeff of Ronal 13.5, Plt Count 123 L, MPV 10.7, Immature Gran % (Auto) 0.200, Neut % (Auto) 71.7 H, Lymph % (Auto) 17.4 L, [place] % (Auto) 9.3, Eos % (Auto) 0.9, Baso % (Auto) 0.5, Absolute Neuts (auto) 4.6, Absolute Lymphs (auto) 1.12, Nucleated RBC % 0 02/13/22 17:00: Sodium 141, Potassium 4.1, Chloride 108 H, Carbon Dioxide 25.0, Anion Gap 8, BUN 20 H, Creatinine 0.96, Estim Creat Clear Calc 70.16, Est GFR (MDRD) Af Amer 97, Est GFR (MDRD) Non-Af 80, BUN/Creatinine Ratio 20.8 H, Glucose 102, Calcium 9.0, Troponin I High Sens 992 H* 02/13/22 17:00: PT 15.9 H, INR 1.3, APTT 39.5 H 02/13/22 19:35: Troponin I High Sens 931 H* 02/14/22 00:55: Total Creatine Kinase 798 H, Triglycerides 85 02/14/22 00:55: Troponin I High Sens 04780 H* 02/14/22 06:00: PT 18.7 H, INR 1.6, APTT 147.3 H* 02/14/22 06:00: Sodium 141, Potassium 4.1, Chloride 111 H, Carbon Dioxide 18.0 L, Anion Gap 12, BUN 25 H, Creatinine 1.29, Estim Creat Clear Calc 52.22, Est GFR (MDRD) Af Amer 69, Est GFR (MDRD) Non-Af 57 L, BUN/Creatinine Ratio 19.4, Glucose 158 H, Calcium 8.1 L, Magnesium 1.8, Total Bilirubin 2.30 H, AST 396 H, ALT 166 H, Alkaline Phosphatase 79, Total Protein 5.1 L, Albumin 2.7 L, Globulin 2.4, Albumin/Globulin Ratio 1.1, Triglycerides 107, Cholesterol 154, LDL Cholesterol 92, VLDL Cholesterol 21, HDL Cholesterol 41, TSH 1.36 02/14/22 06:00: Phosphorus 3.8 02/14/22 06:00: WBC 19.2 H, RBC 4.24 L, Hgb 13.8, Hct 41.5, MCV 97.9 H, MCH 32.5 H, MCHC 33.3, RDW Std Deviation 50.4 H, RDW Coeff of Ronal 14.1, Plt Count 173, MPV 10.6, Immature Gran % (Auto) 0.600, Neut % (Auto) 85.6 H, Lymph % (Auto) 4.3 L, [place] % (Auto) 9.3, Eos % (Auto) 0.0, Baso % (Auto) 0.2, Absolute Neuts (auto) 16.5 H, Absolute Lymphs (auto) 0.83, Nucleated RBC % 0, Differential Comment SCANNED, Diff Path Review September foll 02/14/22 14:20: APTT 78.3 H 02/14/22 16:00: Hgb 13.9, Hct 41.2 02/14/22 16:00: Blood Type A POSITIVE, Antibody Screen NEGATIVE ABG Data ABG results: ABG 02/13/22 02/14/22 21:27 01:08 Specimen Type ART ART Sample Site Art Line pH 7.37 7.28 L Bicarbonate Actual 21.4 L 16.7 L Total CO2 23 18 Base Excess -4 L -10 L O2 Saturation 99 100 H O2 % 100 ABG pCO2 37.3 35.4 ABG pO2 133 H 325 H* Rj Test N/A Respiration Rate 14 O2 Delivery Device Adult Vent Vent Mode AC Tidal Volume 500 POC PEEP 5 Crit Call To/Read Back Yes Rhythm Strip Rhythm Strip: Sinus Rhythm Rate: 88 Ectopy: None Cardiology Labs/Tests 02/13/22 00:55: WBC 18.4 H, RBC 4.32 L, Hgb 14.1, Hct 43.1, MCV 99.8 H, MCH 32.6 H, MCHC 32.7, Plt Count 174, MPV 11.0 02/13/22 17:00: WBC 6.4, RBC 4.32 L, Hgb 14.3, Hct 42.7, MCV 98.8 H, MCH 33.1 H, MCHC 33.5, Plt Count 123 L, MPV 10.7, Immature Gran % (Auto) 0.200, Neut % (Auto) 71.7 H, Lymph % (Auto) 17.4 L, [place] % (Auto) 9.3, Eos % (Auto) 0.9, Baso % (Auto) 0.5, Absolute Neuts (auto) 4.6, Nucleated RBC % 0 02/13/22 17:00: Sodium 141, Potassium 4.1, Chloride 108 H, Carbon Dioxide 25.0, Anion Gap 8, BUN 20 H, Creatinine 0.96, Est GFR (MDRD) Af Amer 97, Est GFR (MDRD) Non-Af 80, BUN/Creatinine Ratio 20.8 H, Glucose 102, Calcium 9.0 02/13/22 17:00: PT 15.9 H, INR 1.3, APTT 39.5 H 02/13/22 21:27: pH 7.37, Bicarbonate Actual 21.4 L, Base Excess -4 L, O2 Saturation 99, ABG pCO2 37.3, ABG pO2 133 H 02/14/22 00:55: Triglycerides 85 02/14/22 01:08: pH 7.28 L, Bicarbonate Actual 16.7 L, Base Excess -10 L, O2 Saturation 100 H, ABG pCO2 35.4, ABG pO2 325 H*, Rj Test N/A 02/14/22 06:00: PT 18.7 H, INR 1.6, APTT 147.3 H* 02/14/22 06:00: Sodium 141, Potassium 4.1, Chloride 111 H, Carbon Dioxide 18.0 L, Anion Gap 12, BUN 25 H, Creatinine 1.29, Est GFR (MDRD) Af Amer 69, Est GFR (MDRD) Non-Af 57 L, BUN/Creatinine Ratio 19.4, Glucose 158 H, Calcium 8.1 L, Magnesium 1.8, Total Bilirubin 2.30 H, Triglycerides 107, Cholesterol 154, LDL Cholesterol 92, VLDL Cholesterol 21, HDL Cholesterol 41 02/14/22 06:00: Phosphorus 3.8 02/14/22 06:00: WBC 19.2 H, RBC 4.24 L, Hgb 13.8, Hct 41.5, MCV 97.9 H, MCH 32.5 H, MCHC 33.3, Plt Count 173, MPV 10.6, Immature Gran % (Auto) 0.600, Neut % (Auto) 85.6 H, Lymph % (Auto) 4.3 L, [place] % (Auto) 9.3, Eos % (Auto) 0.0, Baso % (Auto) 0.2, Absolute Neuts (auto) 16.5 H, Nucleated RBC % 0 02/14/22 14:20: APTT 78.3 H 02/14/22 16:00: Hgb 13.9, Hct 41.2 Rhythm: EKG: ECHO: Stress Test: Cardiac Cath: PCI: CT Surgery: Holter monitor: EPS: PPM: CXR: Chest CT Scan: Radiography Diagnostic Testing: Radiology Impression Chest X-Ray 02/13/22 17:32 IMPRESSION: Degenerative changes, as described above. No demonstrated acute cardiopulmonary process. No major interval change. Electronically Signed: Moi Frank DO at 17:50 EDT , Chest X-Ray 02/14/22 05:55 IMPRESSION: A trachea tube slightly high, could be advanced 2 cm. Findings suspicious for moderate to large bilateral effusions atelectasis. Status post sternotomy. The marker for the balloon pump is not well-visualized. Recommend repeating the study with improved technique. There is a suggestion of a catheter attending caliber line projects over the left side of the heart, 9 cm from the arch. A typical marker is not seen. Electronically Signed: Ryann Lucia MD at 6:04 EDT , Chest X-Ray 02/14/22 10:50 IMPRESSION: Enteric tube terminating within the expected region of the gastric fundus. Stable bilateral pleural effusions. Electronically Signed: Mariann Waters MD at 11:30 EDT , Assessment & Plan Assessment/Plan (1) NSTEMI (non-ST elevated myocardial infarction): PLAN: He presents with a non-ST elevation myocardial infarction and mild hypotension. Cardiac catheterization demonstrated severe triple-vessel disease noted as follows: Distal on left main with 99% stenosis. Ostial LAD totally occluded. Ostial circumflex artery totally occluded. Dominant right coronary artery with mid 99% stenosis. Saphenous vein graft to right coronary artery with proximal 95% stenosis and distal vessel with 60% diffuse stenosis. Saphenous vein graft to circumflex artery sequential which is totally occluded. Left internal mammary artery to the left anterior descending artery which is patent with distal vessel with 50% stenosis. Left ventricular function not assessed. Based on the above angiographic findings and the fact that the patient was noted to be in cardiogenic shock and intra-aortic balloon pump was placed via the right femoral artery. Just discussed extensively. They wish to make the patient comfort care. The implications of the decisions well known to them. The entire family is in agreement. We will respect their wishes. Thank you for allowing me to participate in the care of your patient. Please don't hesitate to call if any issues arise.
--- NOTE | 2022-02-14 17:34 | NURSING ---
[facility] called and update provided, cleared for extubation, call with cardiac time of
[2022-02-14] MEDS: LORazepam 2 MG/ML Syringe 1 MG IV (17:49)
--- NOTE | 2022-02-14 17:56 | CPS ---
Patient was terminally extubated per the families wishes.
[2022-02-14] MEDS: Glycopyrrolate 0.2 MG/ML Vial 0.1 MG IV (20:14)
[2022-02-15] VITALS: BP 81/58; PULSE 95; PULSE 96; RESP 12; TEMP 35.7; O2SAT 93
[2022-02-15] MEDS: Glycopyrrolate 0.2 MG/ML Vial 0.1 MG IV (00:20)
[2022-02-15] MEDS: HYDROmorphone 1 MG/ML Syringe IV ×2 (00:21→03:56)
[2022-02-15] MEDS: LORazepam 2 MG/ML Syringe 1 MG IV (03:53)
[2022-02-15] MEDS: 0.9% Saline Lock 10 ML Syringe IV (03:55)
--- NOTE | 2022-02-15 04:08 | NURSING ---
Pt terminally discharged at 0408. Absence of heart sounds and lung sounds. No pupil response, no response to pain. MD notified. Family notified. Call Center Trainer notified and released body. [facility] called and deferred donation. Family declined to visit patient at this time. home called. Invasive lines removed and post-mortem care completed. No belongings noted, family called and confirmed that his belongings had been taken home with them.
--- NOTE | 2022-02-15 04:10 | PCM.HOSP.N ---
Hospitalist Note Date of : 02/15/22, Time of : 407.
--- NOTE | 2022-02-15 06:57 | PCM.DEATH ---
Preliminary Cause of Preliminary Cause of Preliminary Cause of : Cardiogenic Shock 2/2 NSTEMI Date of Admission: 02/13/22 Date of : 02/15/22 Principle Diagnosis NSTEMI Problem List: Active and Suspected Problems (Updated 02/14/22 @ 09:[address] Shanique Bolaños, DO) Hyperglycemia (Acute) Hyperbilirubinemia (Acute) Transaminitis (Acute) Leukocytosis (Acute) Cardiogenic shock (Acute) Acute respiratory failure, unspecified whether with hypoxia or hypercapnia (Acute) NSTEMI (non-ST elevated myocardial infarction) (Acute) Chest pain (Acute) Angina pectoris, unstable (Acute) History of UT (myocardial infarction) (Acute) History of coronary artery bypass graft (Acute) Non-ST elevated myocardial infarction (Acute) Hospital Course Mr. Martin is an 81-year-old male who presented to emergency department [facility] on 02/13/2022 with a chief complaint of chest pain. He had a noted history of quadruple bypass in 1999 and overall had been doing fairly well since that point time however he began suffering from chest pain approximately 2 days prior to presentation that was predominantly exertional. He reported that he had been hauling wood and would get worsening chest pain while he was doing so. He would take a nitroglycerin and his symptoms would get better and then he go back to work. He did utilize 4 nitroglycerin tablets on the day of admission and had been using nitroglycerin periodically that 2 days prior to presentation. He followed with Dr. Grace at baseline. He indicated he had some nausea and shortness of breath associated with this chest pain but was substernal and centrally located without radiation. He denied any associated diaphoresis or lightheadedness. His vital signs on presentation show a temperature of 97.4, pulse of 84, blood pressure was 99/66, respiratory rate is 18 and oxygen saturation is 99% on room air.? His CBC is overall unremarkable other than thrombocytopenia which appears chronic in nature when compared to previous labs.? His basic metabolic profile is unremarkable.? Coags were pending on admission.? His initial troponin was 992.? Chest x-ray shows degenerative changes but no acute cardiopulmonary process and no interval change since previous.? His initial EKG showed normal sinus rhythm with a nonspecific intraventricular conduction delay and some nonspecific T wave changes and a first-degree AV block which is baseline. With his ongoing chest pain and lower blood pressures at 88/67 with a MAP of 75 he was taken to the [facility] on the p.m. of 02/13/2022. Unfortunately, during his cardiac catheterization he suffered from a V. fib arrest and required defibrillation, intubation and temporary pacemaker placement as well as balloon pump placement. He was found to have a left main with 99% stenosis, ostial LAD totally occluded, ostial circumflex artery totally occluded, dominant RCA mid 99% stenosis, saphenous vein graft to right coronary artery with proximal 95% stenosis in distal vessel with 60% diffuse stenosis, saphenous vein graft circumflex artery sequential totally occluded, left internal mammary artery to the left anterior descending artery patent with distal vessel 50% stenosis. In [facility] cardiology was brought in and the decision to proceed with salvage PCI was made and performed. He was initiated on amiodarone drip and a Levophed drip given his hypotension and vasopressin was added but not utilized. He was stabilized and transferred to the ICU but unfortunately developed GI bleeding with about 150 cc of bright red blood out of his OG. We started Protonix drip cross and typed him and cycled his hemoglobins every 6 hours however family decided to withdraw care at that point. The patient was a DNR CCA no intubation on admission however since his decompensation occurred during a procedure and CODE STATUS is revoked during hospital procedures the aggressive course noted above was proceeded. He was terminally extubated and the balloon pump was discontinued. The patient at 4:08 AM on 02/15/2022. Discharge diagnoses: Acute hypoxic respiratory failure V. fib arrest Cardiogenic shock NSTEMI Leukocytosis Mild thrombocytopenia Transaminitis Hyperglycemia CAD Hypertension GERD Parkinson's Hyperlipidemia
--- NOTE | 2022-02-15 07:41 | CRPHASE1_ITS ---
Patient Communication Guide to Cardiac Rehab Given by ICU Staff Prior to Discharge: No - Pt coded at beginning of cath- pt did in ICU 02/15/22 @0408 Cardiac Rehabilitation Info Cardiac Rehabilitation Program Information: Cardiac Rehabilitation is important for patients like you who are recovering fr om a heart problem. Cardiac rehabilitation programs are recognized as integral to the continued care of the patient with coronary heart disease. The cardiac rehabilitation program is designed to optimize a patient's physical, psychological, and social functioning. Health respiratory care faculty work in cardiac rehabilitation programs and assist you with getting the treatments you need to get stronger and healthier - like exercise, healthy eating habits, and medications. Cardiac rehabilitation has been show to help people with heart problems live longer and have better life enjoyment than people who do not go to cardiac rehabilitation. Please contact the Cardiac Rehabilitation Program at [facility] at in two weeks if you have not heard from them.
[2022-02-15 12:43] LABS: Pathologist Review Reviewed
--- NOTE | 2022-02-16 11:34 | CL.I_ITS ---
Patient Name: MAKENZIE HILL Study Date: 02/13/2022 Performing: Charlette Gurrola MD Ht: 74 inches 187.96 cm : 1940 Wt: 190.88 lbs 86.58 kg Age: 81 Gender: male BSA: 2.13 PROCEDURE(S) PERFORMED DC14-([id number])IABP INSERTION IC14-([id number])GRAFT-ELAINE AND/OR PTCA, SINGLE GRAFT IC14-([id number])GRAFT-ELAINE AND/OR PTCA, SINGLE GRAFT LP13-([id number])TEMPORARY INTRAVENTRICULAR PACING CLINICAL PROFILE AND CO-MORBIDITIES Indications: Suspected CAD, Worsening Angina Heart Failure: None Stress/Imaging Stress/Image Study Performed: No CONCLUSIONS Successful PCI of SVG to RCA. Unsuccessful PCI of SVG to LCx. Successful temporary pacemaker placement. RECOMMENDATIONS DESCRIPTION OF PROCEDURE The patient arrived to the procedure lab. The risks and benefits of the procedure as well as a full description of our services here and current unavailability of surgical backup were fully explained to the patient and/or their significant other prior to the catheterization. The Timeout was completed, verifying the correct patient and procedure. The patient's procedural site was prepped and draped in the usual fashion. Local anesthetic was given subcutaneously to right groin region with Lidocaine 2% Using a modified Seldinger technique,arterial access was obtained via the right femoral artery, a 5Fr sheath was inserted. Left Coronary Artery selective angiography was performed in multiple views using a 5 Fr. JL4 catheter. Right Coronary Artery selective angiography was then performed in multiple views using a 5 Fr. 3DRC (Lalo) catheter. Saphenous Vein graft to the Circumflex selective angiography was performed in multiple views using a 5 Fr. JL4 catheter. Saphenous Vein graft to the RCA selective angiography was performed in multiple views using a 5 Fr. 3DRC (Lalo) catheter.Arrow 40cc 7.5F UltraFlex IABP - Qty: 1 Each Part #: [id number], Temporary Pacemaker 5F catheter was inserted into the right femoral vein and advanced to the RV apex, settings were placed at a rate of, Temporary into the right femoral artery Arterial sheath was exchanged for a 6 Fr Sheath. Emerge 3.00x15 Balloon catheter was inserted. PTCA balloon inflated at 8 atms for 7 secs. PTCA balloon inflated at 8 atms for 6 secs. Orsiro 3.5x18 Drug Eluting stent was inserted. BMW Guide wire was advanced to the vein graft Priority One inserted Pass # 1 Priority One Removed Emerge 2.25x20 Balloon catheter was inserted. PTCA balloon inflated at 6 atms for 5 secs. PTCA balloon inflated at 6 atms for 3 secs. PTCA balloon inflated at 6 atms for 4 secs. PTCA balloon inflated at 6 atms for 5 secs. PTCA balloon inflated at 6 atms for 6 secs. PTCA balloon inflated at 6 atms for 5 secs. PTCA balloon inflated at 6 atms for 3 secs. Angiogram performed post balloon dilatation. Emerge 2.25x20 Balloon catheter was inserted. PTCA balloon inflated at 6 atms for 3 secs. PTCA balloon inflated at 6 atms for 6 secs. PTCA balloon inflated at 6 atms for 3 secs. PTCA balloon inflated at 6 atms for 4 secs. Angiogram performed post balloon dilatation. Priority One inserted Pass # 2 Priority One Removed The arterial sheath x2 was sutured in place and capped. The venous sheath was then sutured inplace and capped INTERVENTION INFORMATION LESION SITE: Saphaenous Vein Graft to the RCA lesion location in the proximal graft segment Lesion Complexity: High/C, chronic total occlusion: No, lesion at bifurcation: No, thrombus present: Yes, lesion length: 15 mm, culprit lesion: Yes, Previously treated lesion: No Pre Stenosis: 99 % Pre intervention QUENTIN flow: 2 PROCEDURE: Drug Eluting Stent with pre dilatation. Post Stenosis: 0 % Post intervention QUENTIN flow: 3 Lesion Devices: David Sci EMERGE MR 3.00x15 BALLOON David Sci EMERGE MR 2.25x20 BALLOON [employer] 6 [place] GuideLiner [employer]otronik Orsiro Lawrence MR ELAINE 3.5x18 Medtronic 6 Fr JR4.0 100cm Guide Catheter LESION SITE: Vein > to 1st circumflex Segment Number: 15-First diagonal branch segment - 1st Diag Lesion Complexity: High/C, chronic total occlusion: No, lesion at bifurcation: No, thrombus present: Yes, lesion length: 20 mm, culprit lesion: Yes, Previously treated lesion: No Pre Stenosis: 100 % Pre intervention QUENTIN flow: 0 PROCEDURE: Thrombectomy Balloon Angioplasty Despite multiple attempts at thrombectomy and PTCA patient had no reflow in the vein graft. Patient had significant stenosis in this vein graft 8-10 years back and was told that it was non revascularizable. After PCI to SVG to RCA, pt. had flow to a PL branch and he also had flow to a diagonal through the TAVAREZ. Pt. had required multiple chest compressions, shocks etc. He was eventually stable and we felt it was better not to proceed with further attempts at PCI to SVG to LCx Post Stenosis: 100 % Post intervention QUENTIN flow: 0 Lesion Devices: David Sci EMERGE MR 3.00x15 BALLOON Medtronic 6 Fr JR4.0 100cm Guide Catheter COMPLICATIONS PROCEDURE MEDICATIONS Oxygen: 2 L/min via nasal cannula Oxygen: 100 % FiO2 via ventilator. See Resp Record for Settings Amiodarone 300 mg IV @ 02/13/2022 21:59:20 Neosynephrine 2 mg IV 02/13/2022 20:45:14 SUMMARY OF HEMODYNAMIC DATA Time AIR REST ECG 20:14:36 AO 72/55 (63) SA 20:25:52 AO 110/72 (88) 21:10:36 AO 97/57 (71) 21:15:59 AO 56/29 (41) 21:18:31 Signed By Charlette Gurrola MD On 02/16/2022 11:33:45 Charlette Gurrola MD
== END 2022-02-15 04:08 | DRG 270 ==
LOC: ED 18:41 → PCU 19:33 → ICU 02-14 05:03
PROVIDERS: Family Medicine; Internal Medicine Cardiovascular Disease; Internal Medicine Critical Care Medicine; Specialist; Admitting Provider Internal Medicine; Emergency Provider Emergency Medicine; PCP Family Medicine; Visit Provider Internal Medicine
DX: I21.4 Non-ST elevation (NSTEMI) myocardial infarction (principal); J96.01 Acute respiratory failure with hypoxia; K72.00 Acute and subacute hepatic failure without coma; R57.0 Cardiogenic shock; I46.9 Cardiac arrest, cause unspecified; E11.65 Type 2 diabetes mellitus with hyperglycemia; D72.829 Elevated white blood cell count, unspecified; D69.6 Thrombocytopenia, unspecified; I95.9 Hypotension, unspecified; I49.01 Ventricular fibrillation; I25.110 Atherosclerotic heart disease of native coronary artery with unstable angina pectoris; G20 Parkinson's disease; E78.5 Hyperlipidemia, unspecified; E80.6 Other disorders of bilirubin metabolism; I10 Essential (primary) hypertension; K21.9 Gastro-esophageal reflux disease without esophagitis; I44.0 Atrioventricular block, first degree; I25.2 Old myocardial infarction; I25.82 Chronic total occlusion of coronary artery; Z95.1 Presence of aortocoronary bypass graft; Z66 Do not resuscitate; Z95.0 Presence of cardiac pacemaker; Z79.2 Long term (current) use of antibiotics; Z79.02 Long term (current) use of antithrombotics/antiplatelets; Z79.82 Long term (current) use of aspirin; Z79.899 Other long term (current) drug therapy; Z82.49 Family history of ischemic heart disease and other diseases of the circulatory system; Z82.3 Family history of stroke
CPT/HCPCS: 31500; 31720; 33210; 33967; 71045; 80048; 80053; 80061; 82550; 82803; 83735; 84100; 84443; 84478; 84484; 85014; 85018; 85025; 85027; 85610; 85730; 86850; 86900; 86901; 87070; 87205; 92937; 92950; 93005; 93455; 94002; 94003; 94799; 97802; 99285; C1757; C1874; J7030; J7040; J7050; Q9967; A4216; C1725; C1769; C1887; C1894; C9604; J1327; J2405; J3010; J3490